=== PATIENT | male | born 1945 | race Caucasian/White ===

== ENCOUNTER → 2016-11-11 | Outpatient (REF) | payer MEDICARE ==
[~2016-11-11] MED LIST: /LINE60TA; /WARF5TA; AMLO10TAB; ASPI81TA83; CELEBRE200 PO; CLAR5CHW; DIOV160T5; EUCERIN; GEMF600T; GLUC1000; HYDR25TA6; INDO50CA2; NICO14DI3; RANI150C; SIMV40TA2
== END ==
LOC: M LAB REF 11:35
PROVIDERS: ATTEND Physician Assistant
DX: N39.0 Urinary tract infection, site not specified (principal)

== ENCOUNTER → 2018-03-08 | Outpatient (REF) | payer MEDICARE ==
[2018-03-08 21:56] LABS: APPEARANCE, URINE CLEAR (CLEAR); BACTERIA, URINE AUTO NEGATIVE (NEGATIVE); BILIRUBIN, URINE AUTO NEGATIVE (NEGATIVE); BLOOD, URINE BLOOD 1+ (NEGATIVE); COLOR, URINE YELLOW (YELLOW); GLUCOSE, URINE (UA) AUTO 1+ mg/dL (NEGATIVE); KETONE, URINE AUTO NEGATIVE (NEGATIVE); LEUKOCYTE ESTERASE, URINE AUTO 2+ (NEGATIVE); NITRITE, URINE AUTO NEGATIVE (NEGATIVE); PROTEIN, URINE AUTO 2+ mg/dL (NEGATIVE); RBC, URINE AUTO 35 /HPF (0-3); SPECIFIC GRAVITY URINE AUTO 1.013 (1.002-1.035); SQUAMOUS EPITHELIAL CELL UR AU 0 /HPF (0-6); UROBILINOGEN, URINE AUTO 0.2 mg/dL (0.0-2.0); WBC, URINE AUTO 63 /HPF (0-3)
== END ==
LOC: M LAB REF 09:17
PROVIDERS: ATTEND Physician Assistant
DX: N39.0 Urinary tract infection, site not specified (principal)

== ENCOUNTER → 2019-01-21 | Outpatient (CLI) | payer MEDICARE ==
[~2019-01-21] MED LIST changes: -/LINE60TA; -/WARF5TA; +COUM1TAB17; +ZYVO100T
--- NOTE | 2019-01-21 14:32 | REP ---
Two-view chest: 01/21/2019. Indication: Cough. Comparison: 07/04/2008. Findings: The lungs are clear. There is no pleural effusion or pneumothorax. Cardiomediastinal silhouette is unremarkable. Impression: Clear lungs. Electronically Signed by Faustino Good DO 01/21/2019 02:23 P
== END ==
LOC: M WUC 12:23
PROVIDERS: ATTEND Physician Assistant
DX: R05 Cough (principal); R06.02 Shortness of breath

== ENCOUNTER → 2019-04-11 | Outpatient (REF) | payer MEDICARE ==
[2019-04-11 17:56] LABS: ALBUMIN 3.9 GM/DL (3.2-5.2); ALT/SGPT 26 U/L (12-78); BILIRUBIN,TOTAL 0.5 MG/DL (0.2-1.0); BLOOD UREA NITROGEN 19 MG/DL (7-18); CALCIUM LEVEL 8.6 MG/DL (8.8-10.2); CARBON DIOXIDE LEVEL 29 MEQ/L (21-32); CHLORIDE LEVEL 104 MEQ/L (98-107); CREATININE FOR GFR 1.11 MG/DL (0.70-1.30); GLOMERULAR FILTRATION RATE > 60.0 (>42); GLUCOSE, FASTING 252 MG/DL (70-100); MAGNESIUM LEVEL 2.1 MG/DL (1.8-2.4); NT-PRO BNP 350 PG/ML (<125); POTASSIUM SERUM 4.7 MEQ/L (3.5-5.1); SODIUM LEVEL 139 MEQ/L (136-145)
[2019-04-11 18:13] LABS: BASO # 0.1 10^3/uL (0.0-0.2); BASO % 0.9 % (0.0-1.0); EOS % 0.5 % (0.0-3.0); HEMATOCRIT 38.2 % (42.0-52.0); HEMOGLOBIN 11.1 g/dl (13.5-17.5); LYMPH # 1.2 10^3/uL (1.5-5.0); LYMPH % 13.8 % (24.0-44.0); MEAN CORPUSCULAR HEMOGLOBIN 23.7 pg (27.0-33.0); MEAN CORPUSCULAR HGB CONC 29.1 g/dl (32.0-36.5); MEAN CORPUSCULAR VOLUME 81.4 fl (80.0-96.0); MONO # 0.6 10^3/uL (0.0-0.8); MONO % 6.6 % (0.0-5.0); NEUTROPHILS # 6.3 10^3/uL (1.5-8.5); NEUTROPHILS % 74.2 % (36.0-66.0); PLATELET COUNT, AUTOMATED 166 10^3/uL (150-450); RED BLOOD COUNT 4.69 10^6/uL (4.30-6.10); WHITE BLOOD COUNT 8.5 10^3/uL (4.0-10.0)
[2019-04-11 20:28] LABS: ERYTHROCYTE SEDIMENTATION RATE 18 mm/hr (0-20)
== END ==
LOC: M LABDRAW1 16:42
PROVIDERS: ATTEND Internal Medicine Cardiovascular Disease
DX: I50.32 Chronic diastolic (congestive) heart failure (principal); I08.0 Rheumatic disorders of both mitral and aortic valves; I11.0 Hypertensive heart disease with heart failure; I25.10 Atherosclerotic heart disease of native coronary artery without angina pectoris

== ENCOUNTER → 2019-04-12 | Outpatient (REF) | payer MEDICARE | LOC: M LABDRAW1 10:53 | PROVIDERS: ATTEND Internal Medicine Cardiovascular Disease | DX: I35.1 Nonrheumatic aortic (valve) insufficiency (principal) ==

== ENCOUNTER 2019-05-13 15:00 | Outpatient (RCR) | payer OTHER ==
--- NOTE | 2019-04-24 11:13 | CARECAPL ---
Assessment Account #s: Initial Assessment General Diagnoses: AVR (ENDOCARDITIS) Date of event: Apr 24, 2019 Physician: Garland Pena Allergies: Coded Allergies: MS - Lisinopril (Unverified Allergy, Mild, SWELLING, 06/20/12) MS - Penicillins (Verified Allergy, Unknown, 06/20/12) MS - Penicillins Cross Reactors (Verified Allergy, Unknown, 06/20/12) Date Entered Program: Apr 24, 2019 Risk strat for cardiac event: High Exercise Date: Apr 24, 2019 Assessment: Re-Assessment I Stages of change: Contemplate Exercise Prescription Plan TO EDUCATE AND BUILD ENDURANCE THROUGH MONITORED EXERCISE PROGRAM Modalities initiated: Treadmill (WILL ADD), Cardio-Strider (WILL ADD), Nustep (WILL ADD), Arm Aerometer (WILL ADD), Dumbells (WILL ADD), Recumbent Bike (WILL ADD) Frequency: 3 Duration (Minutes) 30 - 60 minutes total exercise a day. 15 - 20 work intervals in minutes. PRN rest intervals in minutes. Functional Capacity Goal Sustained Metabolic Equivalent of a task (MET) goal of 2.5-3.5 for 15-20 minutes. Intensity: 3-Moderate Progression (METS) Increase by: 0.5 METS every: 5 sessions TOLERATED Angina with ex: No Target Heart Rate 88-117 PER AGE PREDICTED Resistance Training: Yes Weight (pounds): 2 Reps: 8-12 Hypertension: Yes Hypertension controlled with: Medication Resting 169/66 Medications Scheduled Acetaminophen (Mapap), 2 TAB PO Q4H, (Reported) Allopurinol (Zyloprim), 300 MG PO DAILY, (Reported) Amiodarone HCl (Amiodarone HCl), 200 MG PO DAILY, (Reported) Amlodipine Besylate (Amlodipine Besylate), 10 MG PO DAILY, (Reported) Aspirin (Aspirin Low Dose), 81 MG PO DAILY, (Reported) Atorvastatin Calcium (Atorvastatin Calcium), 80 MG PO DAILY, (Reported) Budesonide/Formoterol (Symbicort 160-4.5 Mcg Inhaler), 2 PUFF INH BID, (Reported) Fluticasone Propionate (Flonase Allergy Relief), 2 SPRAY NARES DAILY, (Reported) Furosemide (Lasix), 20 MG PO DAILY, (Reported) Gabapentin (Neurontin), 300 MG PO BID, (Reported) Glipizide (Glipizide), 10 MG PO BID, (Reported) Metformin HCl (Metformin HCl), 1,000 MG PO BID, (Reported) Prednisone (Prednisone), 5 MG PO DAILY, (Reported) Sildenafil Citrate (Sildenafil Citrate), 100 MG PO ASDIRECTED, (Reported) Valsartan (Valsartan), 40 MG PO DAILY, (Reported) [detemir], 60 UNITS SQ QHS, (Reported) Scheduled PRN Albuterol Sulfate (Proair Hfa), 2 PUFF INH Q4HP PRN for DYSPNEA, (Reported) Carboxymethylcellulose Sodium (Refresh Tears), 1 DROP OP QIDP PRN for DRY EYES, (Reported) [nicotine gum], 4 MG OR Q2HP PRN for SMOKING CESSATION, (Reported) Discontinued Medications Gemfibrozil (Gemfibrozil), (Reported) Discontinued Reason: Pt states not taking Hydrochlorothiazide (Hydrochlorothiazide), (Reported) Discontinued Reason: Pt states not taking Indomethacin (Indomethacin), (Reported) Discontinued Reason: Pt states not taking Linezolid (Zyvox), (Reported) Discontinued Reason: Pt states not taking Loratadine (Children's Claritin), (Reported) Discontinued Reason: Pt states not taking Metformin HCl (Glucophage), (Reported) Discontinued Reason: Pt states not taking Nicotine (Nicoderm Cq), (Reported) Discontinued Reason: Pt states not taking Ranitidine Hcl (Ranitidine Hcl), (Reported) Discontinued Reason: Pt states not taking Simvastatin (Simvastatin), (Reported) Discontinued Reason: Pt states not taking Valsartan (Diovan), (Reported) Discontinued Reason: Pt states not taking Warfarin Sodium (Coumadin), (Reported) Discontinued Reason: Pt states not taking [Eucerin], (Reported) Discontinued Reason: Pt states not taking Med Change: No Intervention Resistance Training: Yes Education: Self pulse (PATIENT DEMONSTRATED SELF PULSE CHECK) Education Goals Met: No Target Goals Individual exercise Rx (1) BP 140/90 or 130/80 if DM or CKD (1) Aerobic active 30+min 5 days per week (1) Nutrition Date: Apr 24, 2019 Assessment: Initial Assessment Stages of change: Contemplate Lipid- med/supplement ATORVASTATIN Med Change: No Diabetes Diabetes: Yes Fasting Blood Sugar: 142 HbA1c (%): 6.5 Diabetes medication GLIPIZIDE,METFORMIN Monitor Blood Sugar at home: Yes Medication Change: No Weight Management Weight (lbs): 159 Height (inches): 68 Waist Circumference (Inches): 50 BMI: 41.8 Weight goal: 200 Special Diet: regular Diet Access Tool: Rate your plate Score: 40 Current Weight (pounds): 259 Weight Goal 200 Intervention Rib Sawyer Consult: No Nurse/patient discussion: Yes Dietary Goals SMALLER PORTIONS,HEART HEALTHY CHOICES Diet Class: Yes (WILL SEE RED CAP WHILE IN PROGRAM) Referral to Diabetes education: No Referral to lipid clinic: No Referral to weight mangement p: No Education Eating Healthy Target goal LDL-C<100 if triglycerides are >200 Non-HDL-C should be <130 (1) LDL-C<70 for high risk patients (4) HbA1c<7% (1) BMI<25 Waist cir<40in M/<35in F (1) Education Date: Apr 24, 2019 Assessment: Initial Assessment Learning Barriers: ready Stages of change: Contemplate Family Support: Yes Tobacco use: No Quit: >6 months Tobacco Use Smokeless tobacco: Yes (RECENTLY STOPPED SKOAL) Intervention Referral to smoking cessation: No Individual education and couns: No Tobacco Adjunct: No Education class schedule given: No Attended education classes: No Education Goals Met: No Target Goals Complete cessation of tobacco use (1). Psychosocial Date: Apr 24, 2019 Assessment: Initial Assessment Psych Test (Initial/Discharge) Tool Used: Other (PHQ-9) Stages of change: Contemplate Intervention Physician Consult: No Physician Referral: No Med Change: No Stress Management Class: No Uses Stress Management Skills: Yes Education Goals Met: No Target Goal Assess presence or absence of depression using a valid screening tool (1). Maximize coping skills (2). Positive support system (2). Patient/Program Goal Preventative Medication: Yes Aspirin, Yes MIRIAM Inhibitor, Yes Statin/OTR lipid Lowering Fall Risk Assess: Yes (NOT A FALL RISK) Provider Assessment Session Number: 1 Provider Assessment: Proceed with rehab Jordan Leyva RN Apr 24, 2019 11:13
[2019-05-02 12:50] VITALS: BP 160/82
[2019-05-02 14:33] VITALS: BP 160/68
[2019-05-02 14:38] VITALS: BP 169/66
[2019-05-03 16:00] VITALS: BP 162/84
[2019-05-03 16:02] VITALS: BP 160/84
[2019-05-03 16:03] VITALS: BP 152/70
[2019-05-06 13:26] VITALS: BP 130/76
[2019-05-06 14:08] VITALS: BP 148/76
[2019-05-06 14:46] VITALS: BP 134/64
[2019-05-09 14:08] VITALS: BP 142/64
[2019-05-09 14:50] VITALS: BP 142/82
[2019-05-09 15:33] VITALS: BP 118/64
[~2019-05-13] VITALS: Ht 172.7 cm; Wt 120.2 kg
[2019-05-13 13:35] VITALS: BP 132/72
[2019-05-13 14:00] VITALS: BP 140/80
[2019-05-13 14:59] VITALS: BP 108/60
[~2019-05-13 15:00] MED LIST changes: +AMIO200T PO; -AMLO10TAB; +AMLO10TAB PO; -ASPI81TA83; +ASPI81TA83 PO; +ATOR80TA59 PO; +DETEMIR SQ; +FLON1SPR NARES; +GLIP10TA PO; +LASI20TA3 PO; +MAPA325T4 PO; +METF10004 PO; +NEUR300C PO; +PRED5TA PO; +PROAAER10 INH; +REFR0.5D8 OP; +SILD100T PO; +SYMB16INH INH; +VALS40TA9 PO; +ZYLO300T6 PO; +nicotine gum OR
== END 2019-05-18 ==
LOC: M CR 15:00
PROVIDERS: ATTEND Internal Medicine Cardiovascular Disease
DX: Z95.3 Presence of xenogenic heart valve (principal)

== ENCOUNTER 2019-05-20 10:54 | Outpatient (RCR) | payer MEDICARE ==
[~2019-05-20] VITALS: Ht 172.7 cm; Wt 123.1 kg
[2019-05-20 12:54] VITALS: BP 140/74
[2019-05-20 12:56] VITALS: BP_SYST 128; BP_SYST 180; BP_DIAS 72; BP_DIAS 82
[2019-05-22 14:07] VITALS: BP 114/80
[2019-05-22 14:40] VITALS: BP 164/84
[2019-05-22 15:36] VITALS: BP 118/68
--- NOTE | 2019-05-23 11:15 | CARECAPL ---
Assessment Account #s: Re-Assessment I General Diagnoses: AVR (ENDOCARDITIS) Date of event: Feb 08, 2019 Physician: Garland Pena Allergies: Coded Allergies: MS - Lisinopril (Unverified Allergy, Mild, SWELLING, 06/20/12) MS - Penicillins (Verified Allergy, Unknown, 06/20/12) MS - Penicillins Cross Reactors (Verified Allergy, Unknown, 06/20/12) Date Entered Program: Apr 24, 2019 Risk strat for cardiac event: High Exercise Assessment: Re-Assessment I Stages of change: Contemplate Exercise Prescription Plan TO EDUCATE AND BUILD ENDURANCE THROUGH MONITORED EXERCISE PROGRAM Modalities initiated: Treadmill (METS=1.99/RPE=4), Nustep (METS=3.7/RPE=3), Arm Aerometer (METS=2.4/RPE=3), Dumbells (4#/RPE=3), Recumbent Bike (METS=3.2/RPE=3) Frequency: 3 Duration (Minutes) 30 - 60 minutes total exercise a day. 15 - 20 work intervals in minutes. PRN rest intervals in minutes. Functional Capacity Goal Sustained Metabolic Equivalent of a task (MET) goal of 3.0-4.0 for 15-20 minutes. Intensity: 3-Moderate Progression (METS) Increase by: 0.5 METS every: 5 sessions TOLERATED Angina with ex: No Target Heart Rate 88-117 PER AGE PREDICTED Resistance Training: Yes Weight (pounds): 4 Reps: 12-15 Hypertension: Yes Hypertension controlled with: Medication Resting 114/80 Peak Exercise BP 164/84 Medications Scheduled Acetaminophen (Mapap), 2 TAB PO Q4H, (Reported) Allopurinol (Zyloprim), 300 MG PO DAILY, (Reported) Amiodarone HCl (Amiodarone HCl), 200 MG PO DAILY, (Reported) Amlodipine Besylate (Amlodipine Besylate), 10 MG PO DAILY, (Reported) Aspirin (Aspirin Low Dose), 81 MG PO DAILY, (Reported) Atorvastatin Calcium (Atorvastatin Calcium), 80 MG PO DAILY, (Reported) Budesonide/Formoterol (Symbicort 160-4.5 Mcg Inhaler), 2 PUFF INH BID, (Reported) Fluticasone Propionate (Flonase Allergy Relief), 2 SPRAY NARES DAILY, (Reported) Furosemide (Lasix), 20 MG PO DAILY, (Reported) Gabapentin (Neurontin), 300 MG PO BID, (Reported) Glipizide (Glipizide), 10 MG PO BID, (Reported) Metformin HCl (Metformin HCl), 1,000 MG PO BID, (Reported) Prednisone (Prednisone), 5 MG PO DAILY, (Reported) Sildenafil Citrate (Sildenafil Citrate), 100 MG PO ASDIRECTED, (Reported) Valsartan (Valsartan), 40 MG PO DAILY, (Reported) [detemir], 60 UNITS SQ QHS, (Reported) Scheduled PRN Albuterol Sulfate (Proair Hfa), 2 PUFF INH Q4HP PRN for DYSPNEA, (Reported) Carboxymethylcellulose Sodium (Refresh Tears), 1 DROP OP QIDP PRN for DRY EYES, (Reported) [nicotine gum], 4 MG OR Q2HP PRN for SMOKING CESSATION, (Reported) Current BP 118/68 Med Change: No Intervention Home exercise: Type (WALKING,WEIGHTS,JOIN LOCAL GYM OR MEET PROGRAM), Frequency (3-5 DAYS PER WEEK), Duration (30-60 MINUTES) Resistance Training: Yes Education: Self pulse (INSTRUCTED PATIENT HOW TO TAKE OWN PULSE), Ex safety (PATIENT VERBALIZES UNDERSTANDING OF IMPORTANCE OF WARM UP AND COOL DOWN, STAYING HYDRATED DURING EXERCISE), S/S to report (PATIENT VERBALIZES UNDERSTANDING TO REPORT CHEST PAIN OR PRESSURE, SOB, N/V OR ANY OTHER PAIN), Low NA diet (PATIENT UNDERSTANDS THAT HE IS TO AVOID SODIUM IN HIS DIET), BP medication (DISCUSSED ACTION OF AMLODIPINE), RPE Scale (INSTRUCTED ON USE OF RPE SCALE OF DIFFICULTY FOR EACH PIECE OF EQUIPMENT), Equipment orientation (ORIENTED TO EACH PIECE OF EQUIPMENT USED), warm up/cool down (PATIENT DEMONSTRATES INDEPENDENTLY TO WARM UP/COOL DOWN PRIOR TO AND FOLLOWING EX ERCISE), Understand BP (DISCUSSED IDEAL B/P PARAMETERS FOR PATIENT), Physical Active (PATIENT VERBALIZES UNDERSTANDING OF IMPORTANCE OF CONTINUED EXERCISE FOLLOWING PROGRAM) Education Goals Met: Yes (PROGRESSING TOWARD GOALS) Target Goals Individual exercise Rx (1) BP 140/90 or 130/80 if DM or CKD (1) Aerobic active 30+min 5 days per week (1) Nutrition Date: May 23, 2019 Assessment: Re-Assessment I Stages of change: Contemplate Lipid- med/supplement ATORVASTATIN Med Change: No Diabetes Diabetes: Yes Diabetes medication GLIPIZIDE AND METFORMIN Monitor Blood Sugar at home: Yes Blood sugar in range: Yes Weight Management Weight (lbs): 265 Special Diet: regular Current Weight (pounds): 265 Intervention Gem Expert Consult: No Nurse/patient discussion: Yes Dietary Goals TO MAKE HEART HEALTHY CHOICES, SMALLER PORTIONS Diet Class: Yes (MET WITH NIB INSPECTOR 05/10/2019) Referral to Diabetes education: No Referral to lipid clinic: No Referral to weight mangement p: No Education Eating Healthy Education Goals Met: Yes (PROGRESSING TOWARD GOALS) Target goal LDL-C<100 if triglycerides are >200 Non-HDL-C should be <130 (1) LDL-C<70 for high risk patients (4) HbA1c<7% (1) BMI<25 Waist cir<40in M/<35in F (1) Education Date: May 23, 2019 Assessment: Re-Assessment I Learning Barriers: ready Stages of change: Contemplate Family Support: Yes Tobacco use: No Quit: >6 months Tobacco Use Smokeless tobacco: No (RECENTLY STOPPED SKOAL) Intervention Referral to smoking cessation: No Individual education and couns: No Tobacco Adjunct: No Education class schedule given: No Attended education classes: No Education: CAD (PATIENT STATES HIGH CHOLESTEROL CAUSES CLOGGED ARTERIES RESULTING IN CAD), Risk factors (PATIENT AWARE THAT BEING OVERWEIGHT, DIABETES A RE RISKS FACTORS FOR CAD), med compliance (PATIENT STATES UNDERSTANDING OF IMPORTANCE OF MEDICATION COMPLIANCE), cardiac A&P (HANDOUTS REVIEWED FOR ANATOMY AND PHYSIOLOGY OF THE HEART), Angina S/S (PATIENT IS AWARE OF S/S OF ANGINA SUCH SOB, CHEST PAIN OR PRESSURE, N/V), Sexuality (PATIENT IS AWARE THAT HE NEEDS MD PERMISSION PRIOR TO RESUMING SEXUAL RELATIONS) Education Goals Met: Yes (PROGRESSING TOWARD GOALS) Target Goals Complete cessation of tobacco use (1). Psychosocial Date: May 23, 2019 Assessment: Re-Assessment I Stages of change: Contemplate Intervention Physician Consult: No Physician Referral: No Med Change: No Stress Management Class: No Uses Stress Management Skills: Yes Education Education: Coping Techniques (DISCUSSED COPING MEASURES SUCH TAKING TIME FOR SELF, EXERCISE,TALKING WITH FAMILY/FRIENDS), S/S depression (REVIEWED S/S OF DEPRESSION SUCH WITHDRAWAL, LACK OF INTEREST, LACK OF APPETITE, SECLUSION), Relaxation Techniques (DISCUSSED WAYS TO RELAX SUCH READING, EXERCISING, LISTENING TO MUSIC) Education Goals Met: Yes (PROGRESSING TOWARD GOALS) Target Goal Assess presence or absence of depression using a valid screening tool (1). Maximize coping skills (2). Positive support system (2). Patient/Program Goal Preventative Medication: Yes Aspirin, Yes MIRIAM Inhibitor, Yes Statin/OTR lipid Lowering Fall Risk Assess: Yes (NOT A FALL RISK) Provider Assessment Session Number: 7 Provider Assessment: Proceed with rehab Jordan Leyva RN May 23, 2019 11:15
[2019-05-27 10:09] VITALS: BP 138/80
[2019-05-27 11:25] VITALS: BP 170/90
[2019-05-30 13:17] VITALS: BP 158/86
[2019-05-30 13:55] VITALS: BP 148/86
[2019-05-30 14:42] VITALS: BP 142/76
[2019-06-05 13:28] VITALS: BP 110/60
[2019-06-05 14:11] VITALS: BP 180/70
[2019-06-05 14:52] VITALS: BP 126/60
[2019-06-06 09:32] VITALS: BP 124/70
[2019-06-06 09:59] VITALS: BP 160/72
[2019-06-06 11:05] VITALS: BP 124/72
--- NOTE | 2019-06-07 13:05 | CARECAPL ---
General Allergies: Coded Allergies: MS - Lisinopril (Unverified Allergy, Mild, SWELLING, 06/20/12) MS - Penicillins (Verified Allergy, Unknown, 06/20/12) MS - Penicillins Cross Reactors (Verified Allergy, Unknown, 06/20/12) Exercise Prescription Duration (Minutes) 30 - 60 minutes total exercise a day. 15 - 20 work intervals in minutes. PRN rest intervals in minutes. Functional Capacity Goal Sustained Metabolic Equivalent of a task (MET) goal of for minutes. Progression (METS) Increase by: METS every: sessions Medications Scheduled Acetaminophen (Mapap), 2 TAB PO Q4H, (Reported) Allopurinol (Zyloprim), 300 MG PO DAILY, (Reported) Amiodarone HCl (Amiodarone HCl), 200 MG PO DAILY, (Reported) Amlodipine Besylate (Amlodipine Besylate), 10 MG PO DAILY, (Reported) Aspirin (Aspirin Low Dose), 81 MG PO DAILY, (Reported) Atorvastatin Calcium (Atorvastatin Calcium), 80 MG PO DAILY, (Reported) Budesonide/Formoterol (Symbicort 160-4.5 Mcg Inhaler), 2 PUFF INH BID, (Reported) Fluticasone Propionate (Flonase Allergy Relief), 2 SPRAY NARES DAILY, (Reported) Furosemide (Lasix), 20 MG PO DAILY, (Reported) Gabapentin (Neurontin), 300 MG PO BID, (Reported) Glipizide (Glipizide), 10 MG PO BID, (Reported) Metformin HCl (Metformin HCl), 1,000 MG PO BID, (Reported) Prednisone (Prednisone), 5 MG PO DAILY, (Reported) Sildenafil Citrate (Sildenafil Citrate), 100 MG PO ASDIRECTED, (Reported) Valsartan (Valsartan), 40 MG PO DAILY, (Reported) [detemir], 60 UNITS SQ QHS, (Reported) Scheduled PRN Albuterol Sulfate (Proair Hfa), 2 PUFF INH Q4HP PRN for DYSPNEA, (Reported) Carboxymethylcellulose Sodium (Refresh Tears), 1 DROP OP QIDP PRN for DRY EYES, (Reported) [nicotine gum], 4 MG OR Q2HP PRN for SMOKING CESSATION, (Reported) Target Goals Individual exercise Rx (1) BP 140/90 or 130/80 if DM or CKD (1) Aerobic active 30+min 5 days per week (1) Target goal LDL-C<100 if triglycerides are >200 Non-HDL-C should be <130 (1) LDL-C<70 for high risk patients (4) HbA1c<7% (1) BMI<25 Waist cir<40in M/<35in F (1) Target Goals Complete cessation of tobacco use (1). Target Goal Assess presence or absence of depression using a valid screening tool (1). Maximize coping skills (2). Positive support system (2). Provider Assessment Provider Assessment: No changes (Cardiac Rehab Program closed due to COVID-19, patient's account to be put on hold) Jordan Leyva RN Jun 07, 2019 13:05
== END 2019-06-18 ==
LOC: M CR 10:54
PROVIDERS: ATTEND Internal Medicine Cardiovascular Disease
DX: Z95.3 Presence of xenogenic heart valve (principal)
CPT/HCPCS: 93798; G0424

== ENCOUNTER → 2019-05-25 | Outpatient (REF) | payer MEDICARE | LOC: M LAB REF 16:29 | PROVIDERS: ATTEND Physician Assistant | DX: R30.0 Dysuria (principal) ==

== ENCOUNTER → 2019-07-29 | Outpatient (CLI) | payer MEDICARE ==
[~2019-07-29] MED LIST changes: +ACET325T43 PO; -MAPA325T4 PO
[2019-07-29 11:55] LABS: BASO # 0.1 10^3/uL (0.0-0.2); BASO % 0.9 % (0.0-1.0); EOS # 0.1 10^3/uL (0.0-0.5); EOS % 0.7 % (0.0-3.0); HEMATOCRIT 39.7 % (42.0-52.0); HEMOGLOBIN 11.5 g/dl (13.5-17.5); LYMPH # 1.1 10^3/uL (1.5-5.0); LYMPH % 9.7 % (24.0-44.0); MEAN CORPUSCULAR HEMOGLOBIN 23.8 pg (27.0-33.0); MONO # 0.7 10^3/uL (0.0-0.8); MONO % 6.2 % (0.0-5.0); NEUTROPHILS # 8.8 10^3/uL (1.5-8.5); NEUTROPHILS % 79.4 % (36.0-66.0); PLATELET COUNT, AUTOMATED 163 10^3/uL (150-450); RED BLOOD COUNT 4.84 10^6/uL (4.30-6.10); WHITE BLOOD COUNT 11.1 10^3/uL (4.0-10.0)
[2019-07-29 12:32] LABS: ALBUMIN 3.8 GM/DL (3.2-5.2); BILIRUBIN,TOTAL 0.4 MG/DL (0.2-1.0); CALCIUM LEVEL 8.8 MG/DL (8.8-10.2); CREATININE FOR GFR 1.37 MG/DL (0.70-1.30); GLOMERULAR FILTRATION RATE 54.1 (>42); POTASSIUM SERUM 4.7 MEQ/L (3.5-5.1)
== END ==
LOC: M LAB 11:04
PROVIDERS: ATTEND Internal Medicine Cardiovascular Disease
DX: I35.1 Nonrheumatic aortic (valve) insufficiency (principal)

== ENCOUNTER → 2019-08-16 | Outpatient (CLI) | payer MEDICARE | LOC: M LAB 09:51 | PROVIDERS: ATTEND Ophthalmology | DX: H47.019 Ischemic optic neuropathy, unspecified eye (principal) ==

== ENCOUNTER → 2019-09-04 | Outpatient (CLI) | payer MEDICARE, OTHER ==
[~2019-09-04] MED LIST changes: -AMIO200T PO; +AMIO200T3 PO
[2019-09-04 15:11] LABS: CREATININE FOR GFR 1.45 MG/DL (0.70-1.30); GLOMERULAR FILTRATION RATE 50.6 (>42)
== END ==
LOC: M LAB 13:43
PROVIDERS: ATTEND Ophthalmology
DX: H46.8 Other optic neuritis (principal)

== ENCOUNTER → 2019-09-06 | Outpatient (CLI) | payer MEDICARE, OTHER ==
[~2019-09-06] MED LIST changes: +PROHANCE 279.3MG/ML 15ML VIAL As Ordered ONE
--- NOTE | 2019-09-06 10:33 | REP ---
MRI orbits: 09/06/2019. Indication: Ischemic optic neuropathy. Technique: Multiplanar short and long TR sequences of the orbits were performed including post gadolinium imaging. Comparison: None. Findings: The ocular and intraorbital anatomy is normal. There are no areas of pathologic gadolinium enhancement. No pathologic fluid collections are present. There is a brain MRI ordered and the brain anatomy will be described separately. Impression: No ocular or intraorbital anatomic abnormalities. Electronically Signed by Faustino Good DO 09/06/2019 10:24 A
--- NOTE | 2019-09-07 10:40 | REP ---
MRI brain: 09/06/2019. Indication: Ischemic optic neuropathy. Technique: Multiplanar short and long tier sequences of the brain were obtained including post gadolinium imaging. Comparison: None. Findings: There are no areas of restricted diffusion or pathologic gadolinium enhancement. Diffuse volume loss is present. There are multiple areas of elevated cerebral hemisphere, T2 white matter signal most consistent with chronic small vessel disease. There is no hydrocephalus or mass effect. The large intracranial flow voids are present. Impression: No acute intracranial process. Volume loss and sequelae of chronic microangiopathic ischemic disease. Electronically Signed by Faustino Good DO 09/07/2019 10:31 A
== END ==
LOC: M RAD 08:02
PROVIDERS: ATTEND Ophthalmology
DX: H47.011 Ischemic optic neuropathy, right eye (principal)
CPT/HCPCS: 70543; 70553; A9576

== ENCOUNTER → 2019-10-23 | Outpatient (CLI) | payer OTHER, MEDICARE ==
[~2019-10-23] MED LIST changes: -PROHANCE 279.3MG/ML 15ML VIAL As Ordered ONE
[2019-11-23 08:14] LABS: BASO # 0.1 10^3/uL (0.0-0.2); BASO % 0.9 % (0.0-1.0); EOS # 0.1 10^3/uL (0.0-0.5); HEMATOCRIT 49.2 % (42.0-52.0); LYMPH # 0.8 10^3/uL (1.5-5.0); LYMPH % 10.4 % (24.0-44.0); MEAN CORPUSCULAR HEMOGLOBIN 23.3 pg (27.0-33.0); MEAN CORPUSCULAR HGB CONC 28.5 g/dl (32.0-36.5); MEAN CORPUSCULAR VOLUME 81.9 fl (80.0-96.0); MONO # 0.5 10^3/uL (0.0-0.8); MONO % 5.8 % (0.0-5.0); NEUTROPHILS # 6.3 10^3/uL (1.5-8.5); PLATELET COUNT, AUTOMATED 126 10^3/uL (150-450); RED BLOOD COUNT 6.01 10^6/uL (4.30-6.10)
[2019-12-02 06:19] LABS: ANTINUCLEAR ANTIBODIES DIRECT See Separate Report
== END ==
LOC: M LAB 12:46
PROVIDERS: ATTEND Optometrist
DX: H47.019 Ischemic optic neuropathy, unspecified eye (principal)

== ENCOUNTER → 2019-11-06 | Outpatient (CLI) | payer OTHER, MEDICARE ==
[2019-11-06 11:19] LABS: BASO # 0.1 10^3/uL (0.0-0.2); BASO % 0.8 % (0.0-1.0); EOS # 0.1 10^3/uL (0.0-0.5); EOS % 0.8 % (0.0-3.0); HEMATOCRIT 34.9 % (42.0-52.0); HEMOGLOBIN 10.1 g/dl (13.5-17.5); LYMPH % 9.5 % (24.0-44.0); MEAN CORPUSCULAR HEMOGLOBIN 23.5 pg (27.0-33.0); MEAN CORPUSCULAR HGB CONC 28.9 g/dl (32.0-36.5); MEAN CORPUSCULAR VOLUME 81.4 fl (80.0-96.0); MONO # 0.7 10^3/uL (0.0-0.8); MONO % 6.6 % (0.0-5.0); NEUTROPHILS # 8.5 10^3/uL (1.5-8.5); NEUTROPHILS % 79.8 % (36.0-66.0); PLATELET COUNT, AUTOMATED 167 10^3/uL (150-450); RED BLOOD COUNT 4.29 10^6/uL (4.30-6.10); WHITE BLOOD COUNT 10.7 10^3/uL (4.0-10.0)
[2019-11-06 12:20] LABS: ALBUMIN 3.9 GM/DL (3.2-5.2); ALT/SGPT 30 U/L (12-78); BILIRUBIN,TOTAL 0.4 MG/DL (0.2-1.0); BLOOD UREA NITROGEN 23 MG/DL (7-18); CALCIUM LEVEL 8.7 MG/DL (8.8-10.2); CARBON DIOXIDE LEVEL 30 MEQ/L (21-32); CHLORIDE LEVEL 106 MEQ/L (98-107); CREATININE FOR GFR 1.21 MG/DL (0.70-1.30); GLOMERULAR FILTRATION RATE > 60.0 (>42); GLUCOSE, FASTING 232 MG/DL (70-100); MAGNESIUM LEVEL 2.1 MG/DL (1.8-2.4); NT-PRO BNP 272 PG/ML (<450); POTASSIUM SERUM 4.9 MEQ/L (3.5-5.1); SODIUM LEVEL 140 MEQ/L (136-145); TOTAL PROTEIN 7.1 GM/DL (6.4-8.2)
== END ==
LOC: M LAB 10:39
PROVIDERS: ATTEND Internal Medicine Rheumatology
DX: I50.32 Chronic diastolic (congestive) heart failure (principal)

== ENCOUNTER → 2020-02-10 | Outpatient (CLI) | payer OTHER, MEDICARE ==
[2020-02-10 13:10] LABS: BASO # 0.1 10^3/uL (0.0-0.2); BASO % 0.8 % (0.0-1.0); EOS # 0.1 10^3/uL (0.0-0.5); EOS % 0.9 % (0.0-3.0); HEMATOCRIT 32.6 % (42.0-52.0); LYMPH # 0.9 10^3/uL (1.5-5.0); LYMPH % 9.6 % (24.0-44.0); MEAN CORPUSCULAR HEMOGLOBIN 22.4 pg (27.0-33.0); MEAN CORPUSCULAR HGB CONC 27.6 g/dl (32.0-36.5); MEAN CORPUSCULAR VOLUME 81.3 fl (80.0-96.0); MONO # 0.6 10^3/uL (0.0-0.8); MONO % 6.1 % (0.0-5.0); NEUTROPHILS # 7.3 10^3/uL (1.5-8.5); NEUTROPHILS % 81.3 % (36.0-66.0); PLATELET COUNT, AUTOMATED 166 10^3/uL (150-450); RED BLOOD COUNT 4.01 10^6/uL (4.30-6.10)
[2020-02-10 15:55] LABS: ALBUMIN 3.8 GM/DL (3.2-5.2); CALCIUM LEVEL 8.9 MG/DL (8.8-10.2); CREATININE FOR GFR 1.3 MG/DL (0.70-1.30); GLOMERULAR FILTRATION RATE 57.3 (>42)
== END ==
LOC: M LAB 12:35
PROVIDERS: ATTEND Internal Medicine Cardiovascular Disease
DX: I50.32 Chronic diastolic (congestive) heart failure (principal); I35.1 Nonrheumatic aortic (valve) insufficiency; I11.0 Hypertensive heart disease with heart failure

== ENCOUNTER → 2020-11-11 | Outpatient (CLI) | payer OTHER ==
[2020-11-11 10:37] LABS: BASO # 0.1 10^3/uL (0.0-0.2); BASO % 0.7 % (0.0-1.0); EOS # 0.1 10^3/uL (0.0-0.5); EOS % 1.2 % (0.0-3.0); HEMATOCRIT 44.4 % (42.0-52.0); HEMOGLOBIN 14.4 g/dl (13.5-17.5); LYMPH # 1.4 10^3/uL (1.5-5.0); MEAN CORPUSCULAR HEMOGLOBIN 29.3 pg (27.0-33.0); MEAN CORPUSCULAR HGB CONC 32.4 g/dl (32.0-36.5); MEAN CORPUSCULAR VOLUME 90.2 fl (80.0-96.0); MONO # 0.7 10^3/uL (0.0-0.8); MONO % 8.1 % (2.0-8.0); NEUTROPHILS # 5.7 10^3/uL (1.5-8.5); NEUTROPHILS % 71.1 % (36.0-66.0); PLATELET COUNT, AUTOMATED 130 10^3/uL (150-450); RED BLOOD COUNT 4.92 10^6/uL (4.30-6.10); WHITE BLOOD COUNT 8.1 10^3/uL (4.0-10.0)
[2020-11-11 11:08] LABS: ALBUMIN 3.7 GM/DL (3.2-5.2); ALT/SGPT 37 U/L (12-78); BILIRUBIN,TOTAL 0.6 MG/DL (0.2-1.0); BLOOD UREA NITROGEN 23 MG/DL (7-18); CALCIUM LEVEL 8.4 MG/DL (8.8-10.2); CARBON DIOXIDE LEVEL 29 MEQ/L (21-32); CHLORIDE LEVEL 107 MEQ/L (98-107); GLOMERULAR FILTRATION RATE > 60.0 (>42); GLUCOSE, FASTING 126 MG/DL (70-100); NT-PRO BNP 145 PG/ML (<450); POTASSIUM SERUM 4.2 MEQ/L (3.5-5.1); SODIUM LEVEL 140 MEQ/L (136-145)
== END ==
LOC: M LAB 09:48
PROVIDERS: ATTEND Internal Medicine Cardiovascular Disease
DX: I50.32 Chronic diastolic (congestive) heart failure (principal); I35.1 Nonrheumatic aortic (valve) insufficiency; I25.10 Atherosclerotic heart disease of native coronary artery without angina pectoris; I11.0 Hypertensive heart disease with heart failure

== ENCOUNTER 2021-01-27 09:12 | Inpatient (IN) | payer OTHER, MEDICARE ==
[~2021-01-27] VITALS: Ht 172.7 cm; Wt 119.0 kg
[2021-01-27] VITALS (9 sets, daily range): BP systolic 154–162; BP diastolic 78–94
[~2021-01-27 09:12] MED LIST changes: -REFR0.5D8 OP; +REFR0.5D8 OU
--- OUTSIDE RECORDS SUMMARY | 2021-01-27 09:21 | CCD ---
Author Author [facility] Organization [facility] Address Unknown Phone Unavailable Care Team Providers Care Parking Technician Name Role Phone SYSTEM IN, NOT IN PROVIDER Unavailable Unavailable Jacky SOLORIO MD Unavailable Unavailable Jacky SOLORIO MD Unavailable Unavailable Jacky SOLORIO MD Unavailable Unavailable Jacky SOLORIO MD Unavailable Unavailable Jacky SOLORIO MD Unavailable Unavailable Jacky SOLORIO MD Unavailable Unavailable Jacky SOLORIO MD Unavailable Unavailable Jacky SOLORIO MD Unavailable Unavailable Jacky SOLORIO MD Unavailable Unavailable Jacky SOLORIO MD Unavailable Unavailable Jacky SOLORIO MD Unavailable Unavailable Jacky SOLORIO MD Unavailable Unavailable Jacky SOLORIO MD Unavailable Unavailable Jacky SOLORIO MD Unavailable Unavailable Jacky SOLORIO MD Unavailable Unavailable Jacky SOLORIO MD Unavailable Unavailable Jacky SOLORIO MD Unavailable Unavailable Jacky SOLORIO MD Unavailable Unavailable Jacky SOLORIO MD Unavailable Unavailable Jacky SOLORIO MD Unavailable Unavailable Jacky SOLORIO MD Unavailable Unavailable Jacky SOLORIO MD Unavailable Unavailable Jacky SOLORIO MD Unavailable Unavailable Jacky SOLORIO MD Unavailable Unavailable Jacky SOLORIO MD Unavailable Unavailable Jacky SOLORIO MD Unavailable Unavailable Jacky SOLORIO MD Unavailable Unavailable Jacky SOLORIO MD Unavailable Unavailable Jacky SOLORIO MD Unavailable Unavailable Jacky SOLORIO MD Unavailable Unavailable Jacky SOLORIO MD Unavailable Unavailable Jacky SOLORIO MD Unavailable Unavailable Jacky SOLORIO MD Unavailable Unavailable Jacky SOLORIO MD Unavailable Unavailable Jacky SOLORIO MD Unavailable Unavailable Jacky SOLORIO MD Unavailable Unavailable Jacky SOLORIO MD Unavailable Unavailable Jacky SOLORIO MD Unavailable Unavailable Jacky SOLORIO MD Unavailable Unavailable Jacky SOLORIO MD Unavailable Unavailable Jacky SOLORIO MD Unavailable Unavailable Jacky SOLORIO MD Unavailable Unavailable Jacky SOLORIO MD Unavailable Unavailable Jacky SOLORIO MD Unavailable Unavailable Jacky SOLORIO MD Unavailable Unavailable Jacky SOLORIO MD Unavailable Unavailable Jacky SOLORIO MD Unavailable Unavailable Jacky SOLORIO MD Unavailable Unavailable Jacky SOLORIO MD Unavailable Unavailable Jacky SOLORIO MD Unavailable Unavailable Jacky SOLORIO MD Unavailable Unavailable Jacky SOLORIO MD Unavailable Unavailable Jacky SOLORIO MD Unavailable Unavailable Jacky SOLORIO MD Unavailable Unavailable Alvarado Hooker MD Unavailable Unavailable Alvarado Hooker MD Unavailable Unavailable Alvarado Hooker MD Unavailable Unavailable Alvarado Hooker MD Unavailable Unavailable Alvarado Hooker MD Unavailable Unavailable Alvarado Hooker MD Unavailable Unavailable Alvarado Hooker MD Unavailable Unavailable Alvarado Hooker MD Unavailable Unavailable Alvarado Hooker MD Unavailable Unavailable Alvarado Hooker MD Unavailable Unavailable Alvarado Hooker MD Unavailable Unavailable Alvarado Hooker MD Unavailable Unavailable Alvarado Hooker MD Unavailable Unavailable Alvarado Hooker MD Unavailable Unavailable Alvarado Hooker MD Unavailable Unavailable Alvarado Hooker MD Unavailable Unavailable Alvarado Hooker MD Unavailable Unavailable Alvarado Hooker MD Unavailable Unavailable Alvarado Hooker MD Unavailable Unavailable Alvarado Hooker MD Unavailable Unavailable Alvarado Hooker MD Unavailable Unavailable Alvarado Hooker MD Unavailable Unavailable Alvarado Hooker MD Unavailable Unavailable Alvarado Hooker MD Unavailable Unavailable Alvarado Hooker MD Unavailable Unavailable Alvarado Hooker MD Unavailable Unavailable Alvarado Hooker MD Unavailable Unavailable Alvarado Hooker MD Unavailable Unavailable Alvarado Hooker MD Unavailable Unavailable Alvarado Hooker MD Unavailable Unavailable Alvarado Hooker MD Unavailable Unavailable Alvarado Hooker MD Unavailable Unavailable Alvarado Hooker MD Unavailable Unavailable Alvarado Hooker MD Unavailable Unavailable Alvarado Hooker MD Unavailable Unavailable Alvarado Hooker MD Unavailable Unavailable Alvarado Hooker MD Unavailable Unavailable Alvarado Hooker MD Unavailable Unavailable Alvarado Hooker MD Unavailable Unavailable Alvarado Hooker MD Unavailable Unavailable Alvarado Hooker MD Unavailable Unavailable Alvarado Hooker MD Unavailable Unavailable Alvarado Hooker MD Unavailable Unavailable Alvarado Hooker MD Unavailable Unavailable Alvarado Hooker MD Unavailable Unavailable Alvarado Hooker MD Unavailable Unavailable Alvarado Hooker MD Unavailable Unavailable Alvarado Hooker MD Unavailable Unavailable Alvarado Hooker MD Unavailable Unavailable Alvarado Hooker MD Unavailable Unavailable Alvarado Hooker MD Unavailable Unavailable Alvarado Hooker MD Unavailable Unavailable Alvarado Hooker MD Unavailable Unavailable Alvarado Hooker MD Unavailable Unavailable Alvarado Hooker MD Unavailable Unavailable Alvarado Hooker MD Unavailable Unavailable Alvarado Hooker MD Unavailable Unavailable Alvarado Hooker MD Unavailable Unavailable Alvarado Hooker MD Unavailable Unavailable Alvarado Hooker MD Unavailable Unavailable Alvarado Hooker MD Unavailable Unavailable Alvarado Hooker MD Unavailable Unavailable Alvarado Hooker MD Unavailable Unavailable Alvarado Hooker MD Unavailable Unavailable Alvarado Hooker MD Unavailable Unavailable Alvarado Hooker MD Unavailable Unavailable Alvarado Hooker MD Unavailable Unavailable Koleliza Erica MD Unavailable Unavailable Koloms Erica MD Unavailable Unavailable Koloms Erica MD Unavailable Unavailable Koloms Erica MD Unavailable Unavailable Koloms Erica MD Unavailable Unavailable Koloms, Erica MD Unavailable Unavailable Koloms, Erica MD Unavailable Unavailable Koloms, Erica MD Unavailable Unavailable Koloms, Erica MD Unavailable Unavailable Koloms, Erica MD Unavailable Unavailable Koloms, Erica MD Unavailable Unavailable Koloms, Erica MD Unavailable Unavailable Koloms Erica MD Unavailable Unavailable Koloms, Erica MD Unavailable Unavailable Koloms Erica MD Unavailable Unavailable Koloms Erica MD Unavailable Unavailable Koloms Erica MD Unavailable Unavailable Koloms Erica MD Unavailable Unavailable Koloms Erica MD Unavailable Unavailable Koloms Erica MD Unavailable Unavailable Koloms Erica MD Unavailable Unavailable Koloms, Erica MD Unavailable Unavailable Koloms, Erica MD Unavailable Unavailable Koloms, Erica MD Unavailable Unavailable Koloms, Erica MD Unavailable Unavailable Koloms, Erica MD Unavailable Unavailable Koloms, Erica MD Unavailable Unavailable Koloms, Erica MD Unavailable Unavailable Koloms, Erica MD Unavailable Unavailable Koloms, Erica MD Unavailable Unavailable Koloms, Erica MD Unavailable Unavailable Koloms, Erica MD Unavailable Unavailable Koloms, Erica MD Unavailable Unavailable PAULA A KYRA Unavailable Unavailable Flip Cardenas MD Unavailable Unavailable Flip Cardenas MD Unavailable Unavailable Flip Cardenas MD Unavailable Unavailable Flip Cardenas MD Unavailable Unavailable Flip Cardenas MD Unavailable Unavailable Flip Cardenas MD Unavailable Unavailable Flip Cardenas MD Unavailable Unavailable Flip Cardenas MD Unavailable Unavailable Flip Cardenas MD Unavailable Unavailable Flip Cardenas MD Unavailable Unavailable Flip Cardenas MD Unavailable Unavailable Flip Cardenas MD Unavailable Unavailable Flip Cardenas MD Unavailable Unavailable Flip Cardenas MD Unavailable Unavailable Flip Cardenas MD Unavailable Unavailable Flip Cardenas MD Unavailable Unavailable Flip Cardenas MD Unavailable Unavailable Flip Cardenas MD Unavailable Unavailable Flip Cardenas MD Unavailable Unavailable Flip Cardenas MD Unavailable Unavailable Flip Cardenas MD Unavailable Unavailable Flip Cardenas MD Unavailable Unavailable Flip Cardenas MD Unavailable Unavailable Flip Cardenas MD Unavailable Unavailable Flip Cardenas MD Unavailable Unavailable Flip Cardenas MD Unavailable Unavailable Flip Cardenas MD Unavailable Unavailable Flip Cardenas MD Unavailable Unavailable Flip Cardenas MD Unavailable Unavailable Flip Cardenas MD Unavailable Unavailable Flip Cardenas MD Unavailable Unavailable Flip Cardenas MD Unavailable Unavailable Flip Cardenas MD Unavailable Unavailable Flip Cardenas MD Unavailable Unavailable Flip Cardenas MD Unavailable Unavailable Flip Cardenas MD Unavailable Unavailable Flip Cardenas MD Unavailable Unavailable Flip Cardenas MD Unavailable Unavailable Flip Cardenas MD Unavailable Unavailable Flip Cardenas MD Unavailable Unavailable Flip Cardenas MD Unavailable Unavailable Flip Cardenas MD Unavailable Unavailable Flip Cardenas MD Unavailable Unavailable Flip Cardenas MD Unavailable Unavailable Flip Cardenas MD Unavailable Unavailable Flip Cardenas MD Unavailable Unavailable Flip Cardenas Samah Unavailable Unavailable Theresa O Kwanah Unavailable Unavailable Theresa O [place] Unavailable Unavailable Theresa O [place] Unavailable Unavailable Theresa O [place] Unavailable Unavailable Theresa O [place] Unavailable Unavailable Theresa O [place] Unavailable Unavailable Theresa O [place]ah Unavailable Unavailable Theresa O Samah Unavailable Unavailable Theresa O [place] Unavailable Unavailable Theresa O [place] Unavailable Unavailable Theresa O [place] Unavailable Unavailable Theresa O [place] Unavailable Unavailable Theresa O [place] Unavailable Unavailable Theresa O [place] Unavailable Unavailable Theresa O [place] Unavailable Unavailable Theresa O [place] Unavailable Unavailable Theresa O [place] Unavailable Unavailable Theresa O [place] Unavailable Unavailable Theresa O [place] Unavailable Unavailable Theresa O [place] Unavailable Unavailable Theresa O Shorty QUICK Unavailable Unavailable Theresa O [place] Unavailable Unavailable Theresa O [place] Unavailable Unavailable Theresa O [place] Unavailable Unavailable Theresa O [place] Unavailable Unavailable Theresa O [place] Unavailable Unavailable Theresa O Shorty QUICK Unavailable Unavailable Theresa O [place] Unavailable Unavailable Theresa O [place] Unavailable Unavailable Theresa O [place] Unavailable Unavailable Theresa O [place] Unavailable Unavailable Theresa O Shorty QUICK Unavailable Unavailable Moon COBIAN MD Unavailable Unavailable Moon COBIAN MD Unavailable Unavailable Moon COBIAN MD Unavailable Unavailable Moon COBIAN MD Unavailable Unavailable Moon COBIAN MD Unavailable Unavailable Moon COBIAN MD Unavailable Unavailable Moon COBIAN MD Unavailable Unavailable Moon COBIAN MD Unavailable Unavailable Moon COBIAN MD Unavailable Unavailable Moon COBIAN MD Unavailable Unavailable Moon COBIAN MD Unavailable Unavailable Moon COBIAN MD Unavailable Unavailable Moon COBIAN MD Unavailable Unavailable Moon COBIAN MD Unavailable Unavailable MEMoon KEARNS MD Unavailable Unavailable MEMoon KEARNS MD Unavailable Unavailable MEMoon KEARNS MD Unavailable Unavailable MEJIMoon CONLEY MD Unavailable Unavailable MEJIMoon CONLEY MD Unavailable Unavailable MEJIMoon CONLEY MD Unavailable Unavailable MEJICOMoon MD Unavailable Unavailable MEJIMoon CONLEY MD Unavailable Unavailable MEJIMoon CONLEY MD Unavailable Unavailable MEMoon KEARNS MD Unavailable Unavailable MEJIMoon CONLEY MD Unavailable Unavailable MEJIMoon CONLEY MD Unavailable Unavailable MEJIMoon CONLEY MD Unavailable Unavailable MEMoon KEARNS MD Unavailable Unavailable MEJIMoon CONLEY MD Unavailable Unavailable MEMoon KEARNS MD Unavailable Unavailable MEMoon KEARNS MD Unavailable Unavailable MEMoon KEARNS MD Unavailable Unavailable MEMoon KEARNS MD Unavailable Unavailable MEMoon KEARNS MD Unavailable Unavailable MEMoon KEARNS MD Unavailable Unavailable MEMoon KEARNS MD Unavailable Unavailable MEMoon KEARNS MD Unavailable Unavailable MEMoon KEARNS MD Unavailable Unavailable MEMoon KEARNS MD Unavailable Unavailable MEMoon KEARNS MD Unavailable Unavailable MEMoon KEARNS MD Unavailable Unavailable MEMoon KEARNS MD Unavailable Unavailable MEMoon KEARNS MD Unavailable Unavailable MEMoon KEARNS MD Unavailable Unavailable MEMoon KEARNS MD Unavailable Unavailable MEMoon KEARNS MD Unavailable Unavailable MEMoon KEARNS MD Unavailable Unavailable MEMoon KEARNS MD Unavailable Unavailable MEMoon KEARNS MD Unavailable Unavailable MEMoon KEARNS MD Unavailable Unavailable MEMoon KEARNS MD Unavailable Unavailable MEMoon KEARNS MD Unavailable Unavailable MEMoon KEARNS MD Unavailable Unavailable MEMoon KEARNS MD Unavailable Unavailable Moon COBIAN MD Unavailable Unavailable MEMoon KEARNS MD Unavailable Unavailable MEMoon KEARNS MD Unavailable Unavailable MEMoon KEARNS MD Unavailable Unavailable MEMoon KEARNS MD Unavailable Unavailable MEMoon KEARNS MD Unavailable Unavailable MEMoon KEARNS MD Unavailable Unavailable MEMoon KEARNS MD Unavailable Unavailable MEMoon KEARNS MD Unavailable Unavailable MEMoon KEARNS MD Unavailable Unavailable MEJICO, EVON MD Unavailable Unavailable MEMoon KEARNS MD Unavailable Unavailable Moon COBIAN MD Unavailable Unavailable MEMoon KEARNS MD Unavailable Unavailable MEMoon KEARNS MD Unavailable Unavailable Moon COBIAN MD Unavailable Unavailable Re-disclosure Warning The records that you are about to access may contain information from federally-assisted alcohol or drug abuse programs. If such information is present, then the following federally mandated warning applies: This information has been disclosed to you from records protected by federal confidentiality rules (42 CFR part 2). The federal rules prohibit you from making any further disclosure of this information unless further disclosure is expressly permitted by the written consent of the person to whom it pertains or as otherwise permitted by 42 CFR part 2. A general authorization for the release of medical or other information is NOT sufficient for this purpose. The Federal rules restrict any use of the information to criminally investigate or prosecute any alcohol or drug abuse patient.The records that you are about to access may contain highly sensitive health information, the redisclosure of which is protected by Article 27-F of the [facility] Public Health law. If you continue you may have access to information: Regarding HIV / AIDS; Provided by facilities licensed or operated by the [facility] Office of Mental Health; or Provided by the [facility] Office for People With Developmental Disabilities. If such information is present, then the following [facility] mandated warning applies: This information has been disclosed to you from confidential records which are protected by state law. State law prohibits you from making any further disclosure of this information without the specific written consent of the person to whom it pertains, or as otherwise permitted by law. Any unauthorized further disclosure in violation of state law may result in a fine or nursing home sentence or both. A general authorization for the release of medical or other information is NOT sufficient authorization for further disc losure. Family History Family Member Name Family Member Gender Family Member Status Date o f Status Description Data Source(s) Unknown Female Problem [facility] ([facility]) Encounters Encounter Providers Location Date Indications Data Source(s ) Outpatient Attender: JORDYN SOLORIO MD Main Office 11/25/2020 12:15:00 PM EDT [facility] ([facility]) Office Visit Attender: Shorty Cardenas MD Main office - [facility] 09/18/2020 11:30:00 AM EDT [facility] ([facility]) Outpatient Attender: JORDYN SOLORIO MD Main Office 08/12/2020 09:15:00 AM EDT [facility] ([facility]) Office Visit Attender: Shorty Cardenas MD [facility] office - [facility] 06/04/2020 12:30:00 PM EDT [facility] ([facility]) Outpatient Attender: JORDYN SOLORIO MD Main Office 05/15/2020 08:00:00 AM EST [facility] ([facility]) Outpatient Attender: KYRA MITCHELL 12:00:00 AM EST - 04/16/2020 11:28:07 AM EST Unspecified optic atrophy [facility] Unspecified optic atrophy Outpatient Attender: CHITO COBIAN MDReferrer: Erica Benson [id number] 04/16/2020 12:00:00 AM EST - 04/16/2020 10:54:42 AM EST Unspecified optic atrophy [facility] Unspecified optic atrophy Outpatient Attender: JORDYN SOLORIO MD Main Office 02/10/2020 10:15:00 AM EST [facility] ([facility]) Office Visit Attender: Shorty Cardenas MD [facility] 02/06/2020 01:45:00 PM EST [facility] ([facility]) Inpatient Attender: Isaiah Hooker MDAdmit ter: Isaiah Hooker MDReferrer: PROVIDER SYSTEM IN [address] [place] [address] 02/08/2019 12:00:00 AM EST - 02/21/2019 02:24:00 PM EST Other nonrheumatic aortic valve disorders [facility] Other nonrheumatic aortic valve disorder s Patient discharged. Immunizations Vaccine Date Status Description Data Source(s) COVID-19 VACCINE Moderna 04/30/2020 12:00:00 AM EST completed [facility] Vaccine Series Complete: YESThis Data wa s Submitted to [facility]. COVID-19 VACCINE Moderna 04/02/2020 12:00:00 AM EST completed [facility]IS Vaccine Series Complete: NOThis Data was Submitted to [facility]. Medications Medication Brand Name Start Date Product Form Dose Route Admi nistrative Instructions Pharmacy Instructions Status Indications Reaction Description Data Source(s) Prednisone 1 MG Oral Tablet Prednisone 11/24/2020 12:00:00 AM EDT ORAL active [facility]) Docusate Sodium 100 MG Oral Capsule Docusate Sodium 05/14/2020 1 2:00:00 AM EST ORAL active [facility] ( [facility]) ferrous sulfate 325 MG Delayed Release Oral Tablet Ferrous S ulfate 05/14/2020 12:00:00 AM EST ORAL active M EDENT ([facility]) Ascorbic Acid 500 MG Oral Tablet Ascorbic Acid 05/14/2020 12:00:00 AM EST ORAL active [facility] ([facility]) coenzyme Q10 100 MG Oral Capsule Coq-10 03/01/2020 12:00:00 AM EST ORAL active [facility]) docosahexaenoic acid 120 MG / Eicosapentaenoic Acid 18 0 MG Oral Capsule Fish Oil [place]-3 03/01/2020 12:00:00 AM EST ORAL active [facility] ([facility]) ezetimibe 10 MG Oral Tablet Ezetimibe 02/09/2020 12:00:00 AM EST ORAL active [facility] ([facility]) Tamsulosin hydrochloride 0.4 MG Oral Capsule Tamsulosin HCL 02/09/2020 12:00:00 AM EST ORAL active [facility] ([facility]) Amoxicillin 500 MG Oral Capsule Amoxicillin 02/02/2020 12:00:00 AM EST ORAL active [facility] ([facility]) coenzyme Q10 100 MG Oral Capsule Coq-10 11/05/2019 12:00:00 AM EDT ORAL completed [facility] ([facility]) Aspirin 81 MG Delayed Release Oral Table t Aspirin 81 MG Oral Tablet Delayed Release Aspirin 81 MG Oral Tablet Delayed Release 02/22/2019 12:00:00 AM EST 81 mg Oral active Take 1 tablet by mouth [facility] valsartan 40 MG Oral Tablet Valsartan 40 MG Oral Table t (DIOVAN) Valsartan 40 MG Oral Tablet (DIOVAN) 02/22/2019 12:00:00 AM EST 40 mg Oral active Take 1 tablet by mouth [facility] Amlodipine 10 MG Oral Tablet amLODIPine Besylate 10 MG Oral Tablet (NORVASC) amLODIPine Besylate 10 MG Oral Tablet (NORVASC) 02/22/2019 12:00:00 AM EST 10 mg Oral active Take 1 tablet by mouth [facility] Insurance Providers Payer name Policy type / Coverage type Policy ID Covered alliance party ID Covered alliance party's relationship to gee Policy Gee Plan Information UHC UNITED MEDICARE COMPLETE G [id number] Self [id number] OTHER B [id number] Self [id number] OTHER B [id number] Self [id number] OTHER B [id number] Self [id number] OTHER B [id number] Self [id number] UN MEDICARE COMPLETE - O/P [id number] 18 [id number] UN MEDICARE COMPLETE - O/P [id number] 18 [id number] [facility] [id number] SP [id number] [facility] D[facility] - FACILITY [id number] 18 [id number] ADMINSTRATION -O/P [id number] 18 [id number] [facility] [id number] SP [id number] 'S ADMINISTRATION [id number] SP [id number] MEDICARE COMPLETE[facility] O [id number] S [id number] [employer] O [id number] S [id number] [facility] O [id number] S [id number] MEDICARE C [id number] S [id number] [facility] O [id number] S [id number] MEDICARE [id number] SP [id number] MEDICARE [id number] SP [id number] [id number] Self [id number] ADMINSTRATION -O/P [id number] 18 [id number] 'S ADMINSTRATION-O/P UNAVAILABLE UNAVAILABLE [place] [facility]/Medicare Solu Commercial [id number] Self [facility] [id number] SP [id number] [facility] P [id number] S [id number] [employer] [place] CCN [id number] SP [id number] [facility] [id number] SP [id number] 'S ADMINISTRATION [id number] SP [id number] [employer] [place] O [id number] S [id number] [facility] [id number] SP [id number] Problems, Conditions, and Diagnoses Code Display Name Description Problem Type Effective Dates Data Source(s) H46.8 Other optic neuritis Other optic neuritis Diagnosis 04/16/2020 11:12:32 AM [facility] 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 Unspecified optic atrophy Di agnosis 04/16/2020 11:12:32 AM [facility] I27.81 Chronic cor pulmonale Chronic cor pulmonale Problem 08/12/2020 12:00:00 AM EDT [facility] ([facility]) 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 Problem 05/15/2020 12:00:00 AM EST [facility] ([facility]) R07.89 Chest pain Chest pain Problem 02/10/2020 12:00:00 AM ES T [facility] ([facility]) [id number] 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 Problem 02/10/2020 12:00:00 AM EST [facility] ([facility]) [id number] Angina co-occurrent and due to coronary arteriosclerosis Angina co-occurrent and due to coronary arteriosclerosis Problem 02/10/2020 12:00:00 AM EST [facility] ([facility]) Surgeries/Procedures Procedure Description Date Indications Data Source(s) OFFICE OUTPATIENT VISIT 25 MINUTES 11/25/2020 12:00:00 AM EDT [facility] ([facility]) PHYSICIAN TELEPHONE EVALUATION 11-20 MIN 09/18/2020 12 :00:00 AM EDT [facility] ([facility]) ECG ROUTINE ECG W/LEAST 12 LDS W/I&R 08/12/2020 12:00: 00 AM EDT [facility] ([facility]) OFFICE OUTPATIENT VISIT 25 MINUTES 08/12/2020 12:00:00 AM EDT [facility] ([facility]) NON-INVASIVE PHYSIOLOGIC STUDY EXTREMITY 3 LEVLS 06/19 12:00:00 AM EDT [facility] ([facility] ) NON-INVASIVE PHYSIOLOGIC STUDY EXTREMITY 3 LEVLS 06/19 12:00:00 AM EDT [facility] ([facility] ) TSTG ANS FUNCJ CARDIOVAGAL INNERVAJ PARASYMP 1 12:00:00 AM EDT [facility] ([facility] ) TESTING AUTONOMIC NERVOUS SYSTEM FUNCTION 06/19/2020 1 2:00:00 AM EDT [facility] ([facility] ) PHYSICIAN TELEPHONE EVALUATION 11-20 MIN 06/04/2020 12 :00:00 AM EDT [facility] ([facility], ) ECG ROUTINE ECG W/LEAST 12 LDS W/I&R 05/15/2020 12:00: 00 AM EST [facility] [facility] MYOCARDIAL SPECT MULTIPLE STUDIES 03/02/2020 12:00:00 AM EST [facility] ([facility]) CV STRS TST XERS&/OR RX CONT ECG PHYS SI&R 03/02/2020 12:00:00 AM EST [facility] ([facility]) ECG ROUTINE ECG W/LEAST 12 LDS W/I&R 02/10/2020 12:00: 00 AM EST [facility] ([facility]) Results ID Date Data Source [id number] 11/11/2020 10:01:00 AM EDT [facility] ([facility]) Name Value Range Interpretation Code Description Data Tana rce(s) Supporting Document(s) Natriuretic peptide.B prohormone N-Terminal [Mass/volu me] in Serum or Plasma 145 pg/mL [facility]) ID Date Data Source [id number] 11/11/2020 10:01:00 AM EDT [facility] Name Value Range Interpretation Code Description Data Tana rce(s) Supporting Document(s) Glucose, Fasting 126 mg/dL 70-100 [facility] Blood Urea Nitrogen 23 mg/dL 7-18 [facility] ([facility]) Glomerular Filtration Rate Laboratory test result [facility] ([facility]) <content>Units are mL/min/1.73 m2</content>
<content></content>
<content>Chronic Kidney Disease Staging per NKF:</content>
<content></content>
<content>Stage I & II GFR >=60 Normal to Mildly Decreased</content>
<content>Stage III GFR 30- 59 Moderately Decreased</content>
<content>Stage IV GFR 15-29 Severely Decreased</content>
<content>Stage V GFR <15 Very Little GFR Left</content>
<content>ESRD GFR <15 on SECURITY INVESTIGATOR</content>
<content></content> Creatinine For GFR 1.20 mg/dL 0.70-1.30 [facility] ([facility]) Sodium Level 140 meq/L 136-145 [facility] ([facility]) Potassium Serum 4.2 meq/L 3.5-5.1 [facility] ([facility]) Chloride Level 107 meq/L 98-107 [facility] ([facility]) Carbon Dioxide Level 29 meq/L 21-32 [facility] ([facility]) Calcium Level 8.4 mg/dL 8.8-10.2 [facility] ([facility]) Anion Gap 4 meq/L 8-16 [facility] ([facility]) Alt/SGPT 37 U/L 12-78 [facility]) Ast/Sgot 21 U/L 7-37 [facility] ([facility] Alkaline Phosphatase 85 U/L 45-117 [facility] ([facility]) Bilirubin,Total 0.6 mg/dL 0.2-1.0 [facility] ([facility]) Total Protein 7.0 GM/DL 6.4-8.2 [facility] ([facility]) Albumin/Globulin Ratio 1.1 [facility] ([facility]) Albumin 3.7 GM/DL 3.2-5.2 [facility] ([facility]) ID Date Data Source [id number] 07/13/2020 10:18:00 AM EDT [facility] Name Value Range Interpretation Code Description Data Tana rce(s) Supporting Document(s) White Blood Count 8.6 [facility] Red Blood Count 4.75 [facility] Platelets 154 [facility] Hematocrit 39.1 [facility] ([facility]) Hemoglobin 11.2 [facility] ([facility]) ID Date Data Source [id number] 07/13/2020 10:18:00 AM EDT [facility] Name Value Range Interpretation Code Description Data Tana rce(s) Supporting Document(s) Glucose 170 [facility] Blood Urea Nitrogen 17 [facility] Creatinine 0.8 [facility] ([facility]) Sodium 139 [facility] Potassium 4.2 [facility] Chloride 104 [facility] Carbon Dioxide 28 [facility] ([facility]) Calcium 8.7 [facility] Glomerular filtration rate/1.73 sq M.pre dicted [Volume Rate/Area] in Serum or Plasma by Creatinine-based formula (MDRD) Laboratory test result [facility] ([facility]) ID Date Data Source [id number] 07/13/2020 10:18:00 AM EDT [facility] Name Value Range Interpretation Code Description Data Tana rce(s) Supporting Document(s) Hemoglobin A1c/Hemoglobin.total in Blood 7.3 [facility] ([facility]) ID Date Data Source [id number] 04/16/2020 04:42:08 PM [facility] Name Value Range Interpretation Code Description Data Tana rce(s) Supporting Document(s) Progress Note [facility] GIMNAx2kAuYWIzYx27/QOBaeBBGpl5LnJCkkBDl2DEuwVFOjO7TiLTU6pA7zVMP7EYzWItEbHkIuKTM1 lbm [file] mold laminator/zVN5egkC4ic/awm7dPcY74bajU8Qe+2mAn6ta9GSvp8cq35cRxP2+FdQtz6TS1ZsefjZI4bB6d+3E [file] /O6XQ+uEp6c/XDD53T+TcgfX150xsPpmm3o4Q0mbOiB2h2HIMNZ+MM59KuFE/+rydp0k+mold laminator/3jWf80dg [file] AgICAgICAgICAgICAgICAgICAgICAgICAgICAgICAg ICAgICAgICAgICAgICAgICAgICAgICAgICAgICAgICAgICANCiAgICAgICAgICAgICAgICAgICAgICAg ICAgICAgICAgICAgICAgICAgICAgICAgICAgICAgICAgICAgICAgICAgICAgICAgICAgICAgICAgICAg ICAgICAgICAgICAgICAgICANCiAgICAgICAgICAgIC AgICAgICAgICAgICAgICAgICAgICAgICAgICAgICAgICAgICAgICAgICAgICAgICAgICAgICAgICAgIC AgICAgICAgICAgICAgICAgICAgICAgICAgICANCiAgICAgICAgICAgICAgICAgICAgICAgICAgICAgIC AgICAgICAgICAgICAgICAgICAgICAgICAgICAgICAg ICAgICAgICAgICAgICAgICAgICAgICAgICAgICAgICAgICAgICANCiAgICAgICAgICAgICAgICAgICAg ICAgICAgICAgICAgICAgICAgICAgICAgICAgICAgICAgICAgICAgICAgICAgICAgICAgICAgICAgICAg ICAgICAgICAgICAgICAgICAgICANCiAgICAgICAgIC AgICAgICAgICAgICAgICAgICAgICAgICAgICAgICAgICAgICAgICAgICAgICAgICAgICAgICAgICAgIC AgICAgICAgICAgICAgICAgICAgICAgICAgICAgICANCiAgICAgICAgICAgICAgICAgICAgICAgICAgIC AgICAgICAgICAgICAgICAgICAgICAgICAgICAgICAg ICAgICAgICAgICAgICAgICAgICAgICAgICAgICAgICAgICAgICAgICANCiAgICAgICAgICAgICAgICAg ICAgICAgICAgICAgICAgICAgICAgICAgICAgICAgICAgICAgICAgICAgICAgICAgICAgICAgICAgICAg ICAgICAgICAgICAgICAgICAgICAgICANCiAgICAgIC AgICAgICAgICAgICAgICAgICAgICAgICAgICAgICAgICAgICAgICAgICAgICAgICAgICAgICAgICAgIC AgICAgICAgICAgICAgICAgICAgICAgICAgICAgICAgICANCiAgICAgICAgICAgICAgICAgICAgICAgIC AgICAgICAgICAgICAgICAgICAgICAgICAgICAgICAg ICAgICAgICAgICAgICAgICAgICAgICAgICAgICAgICAgICAgICAgICAgICANCjw/ySZuL8qgoSXyfhV0 S7ucOq6VHc6YLQ3js1GoASOiJYqeynNdNjuUFiSnRXIlQxuYSmd3NDuwJM3IxNLeP0BpS9DzFIslHK8U EWPlHFMxlEKsDLXxACKrVcU5GXYrJRbmVK1RlHBoYJ itFWUuQDPzRpEwRBTfYUMyHPWtNYKzRGLLNYBwUPPsFxRzUJSiXLTtFMytBHWEYJX5MALnPcOwRXxpVY 9Ys3OqlSE8TZd+Vp7FWB0zn8HiXMxbLxVdQJ3zvz4WKYyNGmXvP1XepyY1VYO5VZKxFx1PFXPiKUJmyO NwNkYkKLKRVsOpI6WijC27WRFBYl2+DQplbmRvYmoN YdN5HLIyk1KbPMg0UW3EKTYqFSp9fGRcSWHxP2Vzu2MeXa42RXBwRdgoKZPbkkPDRZ1mqxccpcdpOWBl FHEiRE1bSH0lYXEhPJP1GdVbTMPBEZ7OTADcUEVwkTGuQVKeOZSGXM5PCTvfRCE1RSCfbaLmlJEyKIij BG8QEJTtnlBkKdCpSJVFQNw+Jn7GND2nb8ZtJZamTG LdGA2vng9FGOoACnCsJ2Q1hCVcF9U6IPxmXw6MKFExOEJwGoBcYKYEFPcdMU2PVN6krhC0VU0QnYPrCN FfWFUagYAuLRm3T46fhIYxHZjzOX3DGJA+Jorge+Sn6UNIZvPXNlYJErCuEbMOCJEuRtF1CvL0JUp8IoX5 BvKX88aEcmxwVsRDazQP7MLY3iMYBsQTTFKM4LjTUn dD8xcsUoXhHrPDQAEzCuW70ceEYoCHNbRXE2BQXfPu0BNVQrY8QqivTqbLcbohPrRABjOTVYYY7UWEnt qhUeqVYylKydVH50pZrcNF4KZi7OZiSqKP8pzd6HgZKxVi4BVNFoPC7VBQGoUTHhLPMvUCQ8VNSrKjTh FPzeUDCeMXFyMJB0HIIkQXWrCM2DNeYdTZWsMUY8PA RcFKQvFBEvyz8IKGFtKTG6EJEoSDWbEGVfMRDaIInoGLOkDWBpFVM6HJMqTEKfVZ4HOwNaKFWdPQM6Mq NkBMEvSQTabv9VNDXmHMRmFCe5CHCyLABcADAhZNohLDZqFTB0RQtoORJyPNZzKC5RDuJwMHTeCFroHG GjVBTgCRPyym8QMHExUPQwFZu8BVRaIBByLFPaIMqw DROmPAHaGTkoXYWnHGXtNJ7XNoWbGTFyELE5QPBkUSCaTXVyco9QENRnONEgTIe5QXGrDSIeRUNaYZzw SVQxNNS3FLR0TVAoMJLuYU8WPhHbMCSzKWylRpFjRWNpOOEmap0SBPYvXLGnNMH5HhKuAGJpMDCzWOsa BSUcGUMsMBC4URDwGTXwWZ2FUjEdJSTyPaQ7XBTxBJ KdFPNdit6BWJVyJESmTBapFPDnJJXkKZApUOdpONRpXSK5NlB5YJKiOKMuUC4TEyXbTRLuMeS0TJLbRD BoXMDpxp6LWSZjYOWbXkH3VlJvAUUxDFXvJRddHCDbCZF4XafyDMOnBWVpLU0FZvWcJQYqUyr4BOFqOA CqFWTlwp6ZKIWsNNIeRIcwAjXwNRRiZWPiIBsiXDMd NPK9NXY9FCBeKAJyXR6GYrHnJDEbYcpoVNRhLSGqPGNxge7WUFPiPNL5JQWkAxSrTFJjTATwKNhjPDIw FQRaMNG3ADDiXRZoMJ1UMhMzRPDfBPOcEkXxTVKuKGIqiq1FUDIjLEE4HJZeOvAlAODdBCOyXFgpVOOl RITfCFYmDHPvDVHkZN3CSxTgTOFzVNU8NQLaWPJoRI Cgxa2YPCZsBBK6HeL1LGWzICSvJFMjHXnrIHAcXQVeDZqgDGXgAZFgVZ3ESaTjLCLtHLVdJSfcITIlVE Dsrq9VOBMxJQS5URj8ZZPfOROsEZXvUMnlTJVjZVE2RZD5FMUrXGYhEI7ALjUjOVEmPRR2GUJhSMQcAX Gedp1BlLMedQxaxc2JGLxHRf1IqIzaEVD3BUwqKd4p lGTyLBReEBVEIh5PeaQiXXXbMTKBJGkyBNNuWASmZpJiNQLrBbI8RxF8IKA2VTC3XlTqTWn4XPC2LqOv JoD2ZiOqOGPfKVCvHUieWoIvIVI6HiBaAWClKuW3StOdEfO+OB5mKTt+Gl4En9MzewN4ioRqQKx8APNb Jo3QTUOOY3UVKl== ID Date Data Source [id number] 02/10/2020 12:56:00 PM EST MED[facility] ([facility]) Name Value Range Interpretation Code Description Data Tana rce(s) Supporting Document(s) Natriuretic peptide.B prohormone N-Terminal [Mass/volu me] in Serum or Plasma 230 pg/mL [facility] ([facility], ) ID Date Data Source [id number] 02/10/2020 12:56:00 PM EST MED[facility] ([facility]) Name Value Range Interpretation Code Description Data Tana rce(s) Supporting Document(s) Glucose, Fasting 227 mg/dL 70-100 [facility] ([facility]) Creatinine For GFR 1.30 mg/dL 0.70-1.30 [facility] ([facility]) Blood Urea Nitrogen 18 mg/dL 7-18 [facility] ([facility], ) Glomerular Filtration Rate 57.3 MED ENT ([facility]) <content>Units are mL/min/1.73 m2</content>
<content></content>
<content>Chronic Kidney Disease Staging per NKF:</content>
<content></content>
<content>Stage I & II GFR >=60 Normal to Mildly Decreased</content>
<content>Stage III GFR 30- 59 Moderately Decreased</content>
<content>Stage IV GFR 15-29 Severely Decreased</content>
<content>Stage V GFR <15 Very Little GFR Left</content>
<content>ESRD GFR <15 on SECURITY INVESTIGATOR</content>
<content></content> Sodium Level 138 meq/L 136-145 [facility] ([facility]) Chloride Level 104 meq/L 98-107 [facility] ([facility]) Carbon Dioxide Level 30 meq/L 21-32 [facility] ([facility]) Potassium Serum 5.0 meq/L 3.5-5.1 [facility] ([facility], ) Calcium Level 8.9 mg/dL 8.8-10.2 [facility] ([facility], ) Anion Gap 4 meq/L 8-16 [facility] ([facility], ) Phosphorus Level 3.0 mg/dL 2.5-4.9 [facility] ([facility]) Albumin 3.8 GM/DL 3.2-5.2 [facility] ([facility]) ID Date Data Source [id number] 02/10/2020 12:56:00 PM EST [facility] Name Value Range Interpretation Code Description Data Tana rce(s) Supporting Document(s) Natriuretic peptide.B prohormone N-Terminal [Mass/volu me] in Serum or Plasma 230 pg/mL [facility] ([facility]) ID Date Data Source [id number] 02/10/2020 12:56:00 PM EST [facility] ([facility] Name Value Range Interpretation Code Description Data Tana rce(s) Supporting Document(s) Glucose, Fasting 227 mg/dL 70-100 [facility] Blood Urea Nitrogen 18 mg/dL 7-18 [facility] ([facility]) Creatinine For GFR 1.30 mg/dL 0.70-1.30 [facility] ([facility]) Glomerular Filtration Rate 57.3 MED ENT ([facility]) <content>Units are mL/min/1.73 m2</content>
<content></content>
<content>Chronic Kidney Disease Staging per NKF:</content>
<content></content>
<content>Stage I & II GFR >=60 Normal to Mildly Decreased</content>
<content>Stage III GFR 30- 59 Moderately Decreased</content>
<content>Stage IV GFR 15-29 Severely Decreased</content>
<content>Stage V GFR <15 Very Little GFR Left</content>
<content>ESRD GFR <15 on SECURITY INVESTIGATOR</content>
<content></content> Sodium Level 138 meq/L 136-145 [facility] ([facility]) Potassium Serum 5.0 meq/L 3.5-5.1 [facility] ([facility]) Carbon Dioxide Level 30 meq/L 21-32 [facility] ([facility]) Chloride Level 104 meq/L 98-107 [facility] ([facility]) Anion Gap 4 meq/L 8-16 [facility] Calcium Level 8.9 mg/dL 8.8-10.2 [facility] ([facility]) Phosphorus Level 3.0 mg/dL 2.5-4.9 [facility] ([facility]) Albumin 3.8 GM/DL 3.2-5.2 [facility] Procedure Social History Code Duration Value Status Description Data Source(s ) Alcohol intake 04/16/2020 12:00:00 AM EST Current drinker of al cohol (finding) completed Current drinker of alcohol (finding) [facility] Tobacco use and exposure 04/16/2020 12:00:00 AM EST Current user co mpleted Current user [facility] Smoking 04/16/2020 12:00:00 AM EST Former smoker completed Former smoker [facility] Vital Signs ID Date Data Source UNK Name Value Range Interpretation Code Description Data Source(s) Body weight 258.00 [lb_av] 258.00 [lb_av] MEDEN T ([facility]) Body height 68 [in_i] 68 [in_i] [facility] ([facility]) 5'8" Body mass index (BMI) [Ratio] 39.2 kg/m2 39.2 k g/m2 [facility] ([facility]) Heart rate 64 /min 64 /min [facility] ([facility]) regular Respiratory rate 18 /min 18 /min [facility] ( [facility]) Systolic blood pressure--sitting 112 mm[Hg] 112 mm[Hg] [facility] ([facility]) large cuff, Ra Diastolic blood pressure--sitting 62 mm[Hg] 62 mm[Hg] [facility] ([facility]) large cuff, Ra Systolic blood pressure--supine 116 mm[Hg] 116 mm[Hg] [facility] ([facility]) Diastolic blood pressure--supine 62 mm[Hg] 62 mm[Hg] [facility] ([facility]) Respiratory rate 12 /min 12 /min MED[facility] ( [facility], ) Body height 68 [in_i] 68 [in_i] MED[facility] ([facility]) 5'8" Body weight 250.00 [lb_av] 250.00 [lb_av] MEDEN T ([facility]) Body mass index (BMI) [Ratio] 38.0 kg/m2 38.0 k g/m2 MED[facility] ([facility]) [place] body weight 154 [lb_av] 154 [lb_av] MEDEN T ([facility]) Body mass index (BMI) [Ratio] 39.4 kg/m2 39.4 k g/m2 [facility] ([facility]) Heart rate 68 /min 68 /min [facility] ([facility]) somewhat irregular Body weight 259.00 [lb_av] 259.00 [lb_av] MEDEN T ([facility]) Body height 68 [in_i] 68 [in_i] [facility] ([facility]) 5'8" Respiratory rate 18 /min 18 /min [facility] ( [facility]) Systolic blood pressure--sitting 124 mm[Hg] 124 mm[Hg] [facility] ([facility]) large cuff, Ra Diastolic blood pressure--sitting 56 mm[Hg] 56 mm[Hg] [facility] ([facility]) large cuff, Ra Systolic blood pressure--supine 132 mm[Hg] 132 mm[Hg] [facility] ([facility]) Diastolic blood pressure--supine 54 mm[Hg] 54 mm[Hg] [facility] ([facility]) Body weight 250.00 [lb_av] 250.00 [lb_av] MEDEN T ([facility]) Body mass index (BMI) [Ratio] 38.0 kg/m2 38.0 k g/m2 [facility] ([facility]) [place] body weight 154 [lb_av] 154 [lb_av] MEDEN T ([facility]) Body height 68 [in_i] 68 [in_i] MED[facility] ([facility] 5'8" Respiratory rate 12 /min 12 /min MED[facility] ( [facility]) Body height 68 [in_i] 68 [in_i] [facility] 5'8" Body mass index (BMI) [Ratio] 39.8 kg/m2 39.8 k g/m2 [facility] ([facility]) Heart rate 74 /min 74 /min [facility] ([facility]) regular Respiratory rate 18 /min 18 /min [facility] ( [facility]) Systolic blood pressure--sitting 119 mm[Hg] 119 mm[Hg] [facility] ([facility]) large cuff, Ra Body weight 262.00 [lb_av] 262.00 [lb_av] MEDEN T ([facility]) Diastolic blood pressure--sitting 58 mm[Hg] 58 mm[Hg] [facility] ([facility]) large cuff, Ra Systolic blood pressure--supine 128 mm[Hg] 128 mm[Hg] [facility] ([facility]) Diastolic blood pressure--supine 60 mm[Hg] 60 mm[Hg] [facility] ([facility]) Heart rate 72 /min 72 /min [facility] ([facility]) regular Respiratory rate 16 /min 16 /min [facility] ( [facility]) Body weight 268.00 [lb_av] 268.00 [lb_av] MEDEN T ([facility]) Body height 68 [in_i] 68 [in_i] [facility] 5'8" Body mass index (BMI) [Ratio] 40.7 kg/m2 40.7 k g/m2 [facility] ([facility]) Systolic blood pressure--sitting 112 mm[Hg] 112 mm[Hg] [facility] ([facility]) large cuff, Ra Diastolic blood pressure--sitting 62 mm[Hg] 62 mm[Hg] [facility] ([facility]) large cuff, Ra Systolic blood pressure--supine 118 mm[Hg] 118 mm[Hg] [facility] ([facility]) Diastolic blood pressure--supine 68 mm[Hg] 68 mm[Hg] [facility] ([facility]) Body weight 268.00 [lb_av] 268.00 [lb_av] MEDEN T ([facility]) Body height 68 [in_i] 68 [in_i] [facility]) 5'8" Body mass index (BMI) [Ratio] 40.7 kg/m2 40.7 k g/m2 [facility] ([facility]) Respiratory rate 12 /min 12 /min MED[facility] ( [facility] ) Body height 68 [in_i] 68 [in_i] MED[facility] ([facility], ) 5'8" Body weight 250.00 [lb_av] 250.00 [lb_av] MEDEN T ([facility], ) Body mass index (BMI) [Ratio] 38.0 kg/m2 38.0 k g/m2 MED[facility] ([facility], ) [place] body weight 154 [lb_av] 154 [lb_av] MEDEN T ([facility], ) ID Date Data Source [id number] 04/24/2020 01:32:19 PM [facility] Name Value Range Interpretation Code Description Data Source(s) WEIGHT RECORDED 273 lb 273 lb [facility] Body height Measured 69 in 69 in [facility] ID Date Data Source [id number] 08/26/2020 10:29:15 AM [facility] Name Value Range Interpretation Code Description Data Source(s) WEIGHT RECORDED 236 lb 236 lb [facility] Body height Measured 69 in 69 in [facility] TRANSFER FROM [facility] WEIGHT RECORDED 236 lb 236 lb [facility] Body height Measured 69 in 69 in [facility] Patient Treatment Plan of Care Planned Activity Planned Date Details Description Data Source (s) Amlodipine 10 MG Oral Tablet 02/22/2019 12:00:00 AM [facility] Aspirin 81 MG Delayed Release Oral Tablet 02/22/2019 12:00:00 AM [facility] valsartan 40 MG Oral Tablet 02/22/2019 12:00:00 AM [facility]
--- OUTSIDE RECORDS SUMMARY | 2021-01-27 09:21 | CCD | Continuity of Care Document ---
Author Author Ricardo PENA MD Organization Unknown Address [facility] [address] Phone [phone] Care Team Providers Care Range Ecologist Name Role Phone Xu Martinez MD AUTM [phone] Isaiah Hooker MD AUTM [phone] Penelope Simmons MD AUTM [phone] Shorty Cardenas MD AUTM [phone] Juanpablo Garcia MD AUTM [phone] Problems Active Problems Provider Date Electrocardiogram abnormal Garland Pena MD Onset: 2019 Aortic valve disorder Garland Pena MD Onset: 04/11/2019 Heart valve replacement Garland Pena MD Onset: 0 Mitral valve disorder Garland Pena MD Onset: 04/11/2019 History of coronary artery bypass grafting Heather Lewis Onset: 04/11/2019 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 Garland Pena MD Onset: 04/11/2019 Benign hypertensive heart disease without congestive h eart failure Garland Pena MD Onset: 04/11/2019 Chronic diastolic heart failure Garland Pena MD Onset: 0 04/11/2019 Atrial flutter Garland Pena MD Onset: 04/11/2019 First degree atrioventricular block Garland Pena MD Onse t: 04/11/2019 Paroxysmal tachycardia Garland Pena MD Onset: 04/11/2019 Chronic cor pulmonale Garland Pena MD Onset: 08/12/2020 Benign hypertensive heart disease with congestive card iac failure Garland Pena MD Onset: 05/15/2020 Chest pain Garland Pena MD Onset: 02/10/2020 Social History Type Date Description Comments Sex Unknown ETOH Use Rarely consumes alcohol Tobacco Use Start: Unknown End: Unknown Patient is a former smoker smoked cigars for 40 years, minimal cigaret smoker, stopped about 10 years ago Smoking Status Reviewed: 04/11/19 Patient is a former smoker sm oked cigars for 40 years, minimal cigaret smoker, stopped about 10 years ago Exercise Type/Frequency Walks sporadically at [email or web address] stores or around the house Exercise Type/Frequency Does gardening sporadica lly Exercise Limitations Weakness in legs Exercise Limitations Fatigue Allergies, Adverse Reactions, Alerts Active Allergies Criticality Reaction | Severity Comments Date Statins Unable to assess criticality myalgia 04/11/2019 Clindamycin Unable to assess criticality unknown 04/11/2019 Lisinopril Unable to assess criticality swelling 04/11/2019 Haroon-Polycin HC Unable to assess criticality unknown 04/11/2019 Medications Active Medications SIG Qnty Indications Ordering Provide r Date Docusate Sodium 100mg Capsules 1 by mouth twice a day Unknown 05/14/2020 Ferrous Sulfate 324(65Fe) mg Table ts DR 1 by mouth once every day Unknown 05/14/19 21 Ascorbic Acid 500mg Tablets 1 by mouth every day Unknown 05/14/2020 Coq-10 100mg Capsules 1 by mouth every day Unknown 03/01/2020 Fish Oil [place]-3 1000mg Capsules 1 by mouth daily Unknown 03/01/2020 Tamsulosin HCL 0.4mg Capsules 1 by mouth every day Unknown 02/09/2020 Ezetimibe 10mg Tablets 1 by mouth every day Unknown 02/09/2020 Amoxicillin 500mg Capsules 4 capsules by mouth 1 hour prior to dental procedures (sbe) Un known 02/02/2020 Prednisone 5mg Tablets 1.5 by mouth every day Unknown 11/05/2019 Proair HFA 108(90Base) mcg/Act Aer osol 2 puffs by mouth as needed Unknown 020 Torsemide 20mg Tablets 1 by mouth every day 90tabs Garland Pena MD 07/31/2019 Nicorette 2mg Gum chew one piece q1-2h as needed for strong cigarette cravings. maximum 30 pieces per day. Unknown 07/31/2019 Refresh Plus 0.5% Solution 1 drop 4 times daily both eyes Unknown 04/10/2019 Loratadine 10mg Capsules 1 by mouth every day Unknown 04/10/2019 Vitamin B Complex Tablets 1 by mouth every day Unknown 04/10/2019 Lhhfzrb-Kkbvlxvts-Qope 333-133-8.3mg Tablets 1 po daily Unknown 04/10/2019 Valsartan 40mg Tablets 1 by mouth every day Unknown 04/10/2019 Sildenafil Citrate 100mg Tablets 1/2 by mouth once daily as needed Unknown 04/10 Aspir-Low 81mg Tablets DR 1 by mouth every day Unknown 04/10/2019 Fluticasone Propionate 50mcg/Act Suspension 1 spray each nostril daily as needed Unkn own 04/10/2019 Acetaminophen 325mg Tablets 1-2 every 4 hours as needed Unknown 04/09/2019 Allopurinol 300mg Tablets 1 by mouth every day Unknown 04/09/2019 Glipizide 10mg Tablets 1 by mouth twice a day Unknown 04/09/2019 Levemir 100Unit/ML Solution inject sq as directed Unknown 04/09/2019 Metformin HCL 1000mg Tablets 1 by mouth twice a day Unknown 04/09/[address] 1 by mouth every day Unknown 04/09/2019 Immunizations Description No Information Available Vital Signs Date Vital Result Comment 08/12/2020 9:30am Weight 259.00 lb Home Weight 261lb home weight Height 68 inches 5'8" BMI (Body Mass Index) 39.4 kg/m2 Heart Rate 68 /min somewhat irregular Respiratory Rate 18 /min BP Systolic Sitting 124 mmHg large cuff, Ra BP Diastolic Sitting 56 mmHg large cuff, Ra BP Systolic Lying Down 132 mmHg BP Diastolic Lying Down 54 mmHg 05/15/2020 9:01am Weight 262.00 lb Home Weight 263lb home weight Height 68 inches 5'8" BMI (Body Mass Index) 39.8 kg/m2 Heart Rate 74 /min regular Respiratory Rate 18 /min BP Systolic Sitting 119 mmHg large cuff, Ra BP Diastolic Sitting 58 mmHg large cuff, Ra BP Systolic Lying Down 128 mmHg BP Diastolic Lying Down 60 mmHg Results Test Acquired Date Facility Test Result H/L Range Note Comprehensive Metabolic Profil 11/11/2020 [facility] [phone] Glucose, Fasting 126 mg/dL High 70-100 Blood Urea Nitrogen 23 mg/dL High 7-18 Creatinine For GFR 1.20 mg/dL Normal 0.70-1.30 Glomerular Filtration Rate > 60.0 Normal >42 1 Sodium Level 140 mEq/L Normal 136-145 Potassium Serum 4.2 mEq/L Normal 3.5-5.1 Chloride Level 107 mEq/L Normal 98-107 Carbon Dioxide Level 29 mEq/L Normal 21-32 Anion Gap 4 mEq/L Low 8-16 Calcium Level 8.4 mg/dL Low 8.8-10.2 Ast/Sgot 21 U/L Normal 7-37 Alt/SGPT 37 U/L Normal 12-78 Alkaline Phosphatase 85 U/L Normal 45-117 Bilirubin,Total 0.6 mg/dL Normal 0.2-1.0 Total Protein 7.0 GM/DL Normal 6.4-8.2 Albumin 3.7 GM/DL Normal 3.2-5.2 Albumin/Globulin Ratio 1.1 Normal Laboratory test finding 11/11/2020 [facility] [phone] NT-Pro BNP 145 pg/mL Normal <450 Hemoglobin A1c 07/13/2020 [facility] Hemoglobin A1c 7.3 Basic Metabolic Panel 07/13/2020 [facility] Glucose 170 Blood Urea Nitrogen 17 Creatinine 0.8 Sodium 139 Potassium 4.2 Chloride 104 Carbon Dioxide 28 Calcium 8.7 GFR (Calculated) -- CBC without Differential 07/13/2020 [facility] White Blood Count 8.6 Red Blood Count 4.75 Platelets 154 Hemoglobin 11.2 Hematocrit 39.1 1 Units are mL/min/1.73 m2 Chronic Kidney Disease Staging per NKF: Stage I & II GFR >=60 Normal to Mildly Decreased Stage III GFR 30-59 Moderately Decreased Stage IV GFR 15-29 Severely Decreased Stage V GFR <15 Very Little GFR Left 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 Procedures Date Code Description Status 08/12/2020 50047 Office/Outpatient Established Mo d MDM 30-39 Min Completed 08/12/2020 77804 ECG 12-Lead Completed Medical Devices Description No Information Available Encounters Type Date Location Provider Dx Diagnosis Office Visit 08/12/2020 9:15a Main Office Garland Pena MD I50.32 Chronic diastolic (congestive) heart failure I44.0 Atrioventricular block, firs t degree I25.10 Athscl heart disease of vasiliy ve coronary artery w/o ang pctrs I11.0 Hypertensive heart disease w ith heart failure I35.1 Nonrheumatic aortic (valve) insufficiency I27.81 Cor pulmonale (chronic) Assessments Date Code Description Provider 08/12/2020 I50.32 Chronic diastolic (congestive) h eart failure Garland Pnea MD 08/12/2020 I44.0 Atrioventricular block, first de gree Garland Pena MD 08/12/2020 I25.10 Atherosclerotic hear t disease of craig coronary artery without angina pectoris Garland Pena MD 08/12/2020 I11.0 Hypertensive heart disease with heart failure Garland Pena MD 08/12/2020 I35.1 Nonrheumatic aortic (valve) insu fficiency Garland Pena MD 08/12/2020 I27.81 Cor pulmonale (chronic) Garland Pena MD Plan of Treatment Future Appointment(s):* 11/25/2020 12:15 pm - Garland Pena MD at Main Office 08/12/2020 - Garland Pena MD* I50.32 Chronic diastolic (congestive) heart failure* New Labs:* CBC W/Auto Differential, Scheduled: 11/16/20 * CMP, Scheduled: 11/16/20 * NT Probnp QN Ser/Plas, Scheduled: 11/16/20 * Recommendations:* Dyspnea remains is effort limiting symptom and he has slight lower leg swelling but his expiratory rhonchi are believed to be a reflection of COPD; not heart failure. Believed to be compensated at this time. Congratulated on his weight loss. Recent blood work shows electrolyte balance with normal renal function. Encouraged his continued modest salt, fluid, and caloric restriction along with regular low level aerobic exercise. No change has been made to torsemide and valsartan. Should be weighing himself each morning post voiding and contact us should he gain more than 2 pounds in 24 hours or 4 pounds in 1 week. * I44.0 Atrioventricular block, first degree* Recommendations:* This combined with his sinus arrhythmia are believed to be related to degenerative conduction tissue disease. His positional loss of balance and recent fall are related to his vestibular problem and reduced visual acuity. Fortunately, sonu ins free of symptom to suggest bradyarrhythmia. EKG RI interval today is essentially stable. We will continue to monitor this conduction disturbance. No indication for need for pacemaker at this time. 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 Stable EKG appearance as mentioned above. Encouraged dietary measures and activity. No change has been made to his current protective valsartan, Ezetimibe and low-dose aspirin. Requested he contact us promptly for any effort related chest, jaw, or arm discomforts. * I11.0 Hypertensive heart disease with heart failure* New Labs:* CMP, Scheduled: 11/16/20 * Recommendations:* As per assessment #1. Current blood pressure would be considered well controlled. Chemistry as mentioned Dietary measures and exercise as mentioned above. No change has been made to his valsartan and torsemide. * I35.1 Nonrheumatic aortic (valve) insufficiency* New Labs:* CBC W/Auto Differential, Scheduled: 11/16/20 * Recommendations:* Post aortic valve replacement (bioprosthetic): Has no auscultatory change on examination today. Ongoing systolic murmur attributed to his prosthesis but no apparent insufficiency murmur. No symptoms or signs to suggest endocarditis. SBE antibiotic prophylaxis prior to dental or surgical procedures, is necessary to protect his prosthetic valve. In light of his prosthetic valve and prior endocarditis, he should also receive SBE prophylaxis prior to his endoscopies. * I27.81 Cor pulmonale (chronic)* Recommendations:* Somewhat challenging to assess his neck veins. Has only subtle lower leg swelling. Has been compliant with his CPAP therapy. Have encouraged his dietary measures and continued compliance with pressure therapy. * All * Comments:* I will ensure that the aforementioned test findings are reported to you along with any further recommendations. Thank you for allowing me to participate in the care of your patient. Best regards. * Follow up:* Clinic visit/CHF check with EKG and blood work in 3 months. We would be pleased to reassess the patient at any time. Functional Status Functional Condition Comment Date Status Independent with all ADL's Activ e Mental Status Description No Information Available Referrals Description No Information Available
[2021-01-27] MEDS ORDERED: TORS20TA2 PO (09:47)
[2021-01-27] MEDS ORDERED: MM S100C PO (09:47)
[2021-01-27] MEDS ORDERED: PRED1TABL PO (09:47)
[2021-01-27] MEDS ORDERED: LEVE1INJ5 SC (09:47)
[2021-01-27] MEDS ORDERED: FLOM0.4C39 PO (09:47)
[2021-01-27] MEDS ORDERED: OMEP-341 PO (09:47)
[2021-01-27] MEDS ORDERED: ASCO500T PO (09:47)
[2021-01-27] MEDS ORDERED: FERR325T3 PO (09:47)
[2021-01-27] MEDS ORDERED: EZET10TA21 PO (09:47)
--- NOTE | 2021-01-27 10:08 | REP ---
INDICATION: CVA. COMPARISON: Multiple the latest 01/21/2019 TECHNIQUE: Portable FINDINGS: The technique utilized in obtaining the radiograph has magnified the cardiac silhouette and accentuated the interstitial markings. The superior mediastinal structures are midline. The cardiac silhouette is unremarkable in size, shape, and position. The diaphragmatic surfaces of the lungs are regular, and the costophrenic angles are clear. The pulmonary hernandez are clear. There is been previous median sternotomy since the last exam IMPRESSION: There is no acute cardiopulmonary disease. <Electronically signed by Fab Mackey > 01/27/21 1640
[2021-01-27 10:20] LABS: BASO # 0.1 10^3/uL (0.0-0.2); BASO % 0.8 % (0.0-1.0); EOS # 0.1 10^3/uL (0.0-0.5); EOS % 1.5 % (0.0-3.0); HEMATOCRIT 45.9 % (42.0-52.0); HEMOGLOBIN 15.4 g/dl (13.5-17.5); LYMPH # 1.2 10^3/uL (1.5-5.0); LYMPH % 15.7 % (24.0-44.0); MEAN CORPUSCULAR HEMOGLOBIN 31.8 pg (27.0-33.0); MEAN CORPUSCULAR HGB CONC 33.6 g/dl (32.0-36.5); MEAN CORPUSCULAR VOLUME 94.6 fl (80.0-96.0); MONO # 0.6 10^3/uL (0.0-0.8); MONO % 8.2 % (2.0-8.0); NEUTROPHILS # 5.7 10^3/uL (1.5-8.5); NEUTROPHILS % 72.9 % (36.0-66.0); PLATELET COUNT, AUTOMATED 124 10^3/uL (150-450); RED BLOOD COUNT 4.85 10^6/uL (4.30-6.10); WHITE BLOOD COUNT 7.8 10^3/uL (4.0-10.0)
[2021-01-27 10:36] LABS: CK-MB VALUE MASS 2.7 NG/ML (<3.6); CPK CREATINE PHOSPHOKINASE 236 U/L (39-308); MB/CK RELATIVE INDEX 1.14 (< OR =4); TROPONIN I < 0.02 NG/ML (< 0.10)
--- NOTE | 2021-01-27 10:52 | REP ---
INDICATION: Altered mental status. COMPARISON: 07/04/2008 TECHNIQUE: 5 mm axial images through the head without contrast. FINDINGS: Scans windowed for bone demonstrate an intact calvarium. The visualized paranasal sinuses are clear with no air-fluid levels. The mastoids are well aerated. Areas of decreased attenuation adjacent to the anterior horns of the lateral ventricles are consistent with ischemic demyelinization. No mass or hemorrhage is identified. The ventricles and sulci are slightly more prominent at this time consistent with mild atrophy in the interim. No changes of acute infarct are appreciated. If the patient has continued symptoms of CVA a follow-up exam in 24 hours may be of value. IMPRESSION: No definite acute infarct is identified. 2. Mild atrophy as compared to the earlier study <Electronically signed by Garland Elena > 01/27/21 1041
--- OUTSIDE RECORDS SUMMARY | 2021-01-27 11:13 | CCD | Continuity of Care Document ---
Author Author Ricardo PENA MD Organization Unknown Address [facility] [place] [address] Phone [phone] Care Team Providers Care Computer Systems Consultant Name Role Phone Xu Martinez MD AUTM [phone] Isaiah Hooker MD AUTM [phone] Penelope Simmons MD AUTM [phone] Shorty Cardenas MD AUTM [phone] Juanpablo Garcia MD AUTM [phone] Problems Active Problems Provider Date Electrocardiogram abnormal Garland Pena MD Onset: 2019 Aortic valve disorder Garland Pena MD Onset: 04/11/2019 Heart valve replacement Garland Pena MD Onset: 0 Mitral valve disorder Garland Pena MD Onset: 04/11/2019 History of coronary artery bypass grafting Heather Lewis Onset: 04/11/2019 Atherosclerotic heart disease of teller coronary arter y without angina pectoris Garland [...] years ago Exercise Type/Frequency Walks sporadically at [employer] stores or around the house Exercise Type/Frequency [...] SIG Qnty Indications Ordering Provide r Date Prednisone 1mg Tablets 3 by mouth every day Unknown 11/24/2020 Ascorbic Acid 500mg Tablets 1 by mouth every day Unknown 05/14/2020 Docusate Sodium 100mg Capsules 1 by mouth twice a day Unknown 05/14/2020 Ferrous Sulfate 324(65Fe) mg Table ts DR 1 by mouth once every day Unknown 05/14/19 21 Coq-10 100mg Capsules 1 by mouth every day Unknown 03/01/2020 Fish Oil [place]-3 1000mg Capsules 1 by mouth daily Unknown 03/01/2020 Tamsulosin HCL 0.4mg Capsules 1 by mouth every day Unknown 02/09/2020 Ezetimibe 10mg Tablets 1 by mouth every day Unknown 02/09/2020 Amoxicillin 500mg Capsules 4 capsules by mouth 1 hour prior to dental procedures (sbe) Un known 02/02/2020 Proair HFA 108(90Base) mcg/Act Aer osol 2 [...] 1 by mouth every day Unknown 04/10/2019 Srkyyxz-Gjvtxmkcb-Xlnw 333-133-8.3mg Tablets 1 po daily Unknown 04/10/2019 [...] Available Vital Signs Date Vital Result Comment 11/25/2020 12:30pm Weight 258.00 lb Home Weight 257lb home weight Height 68 inches 5'8" BMI (Body Mass Index) 39.2 kg/m2 Heart Rate 64 /min regular Respiratory Rate 18 /min BP Systolic Sitting 112 mmHg large cuff, Ra BP Diastolic Sitting 62 mmHg large cuff, Ra BP Systolic Lying Down 116 mmHg BP Diastolic Lying Down 62 mmHg 08/12/2020 9:30am Weight 259.00 lb Home Weight 261lb home weight Height 68 inches 5'8" BMI (Body Mass Index) 39.4 kg/m2 Heart Rate 68 /min somewhat irregular Respiratory Rate 18 /min BP Systolic Sitting 124 mmHg large cuff, Ra BP Diastolic Sitting 56 mmHg large cuff, Ra BP Systolic Lying Down 132 mmHg BP Diastolic Lying Down 54 mmHg Results Test Acquired Date Facility Test Result H/L Range Note Comprehensive Metabolic Profil 11/11/2020 [facility] [phone] Glucose, Fasting 126 mg/dL High 70-100 Blood [...] Ratio 1.1 Normal Laboratory test finding 11/11/2020 [facility] [phone] NT-Pro BNP 145 pg/mL Normal <450 Hemoglobin [...] Little GFR Left 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 Date Code Description Status 11/25/2020 66252 Office/Outpatient Established Mo d MDM 30-39 Min Completed 08/12/2020 91237 Office/Outpatient Established Mo d MDM 30-39 Min Completed 08/12/2020 61030 ECG 12-Lead Completed Medical Devices Description No Information Available Encounters Type Date Location Provider Dx Diagnosis Office Visit 11/25/2020 12:15p Main Office Garland Pena MD I50.32 Chronic diastolic (congestive) heart failure I44.0 Atrioventricular block, firs t degree R94.31 Abnormal electrocardiogram [ ECG] [EKG] I25.10 Athscl heart disease of vasiliy ve coronary artery w/o ang pctrs I11.0 Hypertensive heart disease w ith heart failure I35.1 Nonrheumatic aortic (valve) insufficiency I27.81 Cor pulmonale (chronic) Office Visit 08/12/2020 9:15a Main Office Garland Pena MD I50.32 Chronic diastolic (congestive) heart failure I44.0 Atrioventricular block, firs t degree I25.10 Athscl heart disease of vasiliy ve coronary artery w/o ang pctrs I11.0 Hypertensive heart disease w ith heart failure I35.1 Nonrheumatic aortic (valve) insufficiency I27.81 Cor pulmonale (chronic) Assessments Date Code Description Provider 11/25/2020 I50.32 Chronic diastolic (congestive) h eart failure Garland Pena MD 11/25/2020 I44.0 Atrioventricular block, first Jessy MD 11/25/2020 R94.31 Abnormal electrocardiogram [ECG] [EKG] Garland Pena MD 11/25/2020 I25.10 Atherosclerotic hear t disease of teller coronary artery without angina pectoris Garland Pena MD 11/25/2020 I11.0 Hypertensive heart disease with heart failure Garland Pena MD 11/25/2020 I35.1 Nonrheumatic aortic (valve) insu fficiency Garland Pena MD 11/25/2020 I27.81 Cor pulmonale (chronic) Garland Pena MD 08/12/2020 I50.32 Chronic diastolic (congestive) h eart failure Garland Pena MD 08/12/2020 I44.0 Atrioventricular block, first Jessy MD 08/12/2020 I25.10 Atherosclerotic hear t disease of teller coronary artery without angina pectoris Garland Pena MD 08/12/2020 I11.0 Hypertensive heart disease with heart failure Garland Pena MD 08/12/2020 I35.1 Nonrheumatic aortic (valve) insu fficiency Garland Pena MD 08/12/2020 I27.81 Cor pulmonale (chronic) Garland Pena MD Plan of Treatment Future Appointment(s):* 02/26/2021 12:15 pm - Garland Pena MD at Main Office 11/25/2020 - Garland Pena MD* I50.32 Chronic diastolic (congestive) heart failure* New Labs:* CBC W/Auto Differential, Scheduled: 02/23/21 * CMP, Scheduled: 02/23/21 * NT Probnp QN Ser/Plas, Scheduled: 02/23/21 * I44.0 Atrioventricular block, first degree * R94.31 Abnormal electrocardiogram [ECG] [EKG] * I25.10 Atherosclerotic heart disease of teller coronary artery without angina pectoris* New Labs:* CMP, Scheduled: 02/23/21 * I11.0 Hypertensive heart disease with heart failure* New Labs:* CMP, Scheduled: 02/23/21 * I35.1 Nonrheumatic aortic (valve) insufficiency* New Labs:* CBC W/Auto Differential, Scheduled: 02/23/21 * I27.81 Cor pulmonale (chronic) * All * Comments:* I will ensure that the aforementioned test findings are reported to you along with any further recommendations. Thank you for allowing me to participate in the care of your patient. Best regards. Functional Status Functional Condition Comment Date Status Independent with all ADL's Activ e Mental Status Description No Information Available Referrals Description No Information Available
[2021-01-27] MEDS ORDERED: ACETAMINOPHEN TAB 650MG DOSE (2X325MG) PO PRN (11:50)
[2021-01-27] MEDS ORDERED: GLUCAGON INJ 1MG VIAL SC PRN (12:05)
[2021-01-27] MEDS ORDERED: DEXTROSE 50% 50 ML SYRINGE IV PRN (12:05)
[2021-01-27] MEDS ORDERED: GLUCOSE 4GM CHEW TABLET PO PRN (12:05)
--- NOTE | 2021-01-27 12:11 | HPEPDOC ---
General Date of Admission 01/27/21 Date of Service: Jan 27, 2021 Chief Complaint The patient is a 75-year-old male admitted with a reason for visit of General Medical Complaint. Source: Patient Exam Limitations: No limitations History of Present Illness Patient is 75 years old male with past medical history of hypertension, type 2 diabetes, hyperlipidemia, GERD, CABG presented to hospital with history of expressive aphasia. Patient stated that 2 days ago during lunch with his he could not express himself and had difficulties to talk. Patient stated after 25 minutes his symptoms resolved. He did not go to ER or primary care physician. Today he called the [facility] and Dr. Pena recommended him to come to the emergency. Patient denied any focal deficiency. In ER patient was found to have elevated blood pressure of 185/93, no leukocytosis, glucose level of 230, EKG shows normal sinus rhythm without acute ischemic changes. CT head negative for stroke or acute bleeding. Home Medications Scheduled Acetaminophen (Mapap) 325 Mg Tablet, 2 TAB PO Q4H, (Reported) Allopurinol (Zyloprim) 300 Mg Tablet, 300 MG PO DAILY, (Reported) Ascorbic Acid (Ascorbic Acid) 500 Mg Tablet, 500 MG PO DAILY, (Reported) Aspirin (Aspirin Low Dose) 81 Mg Tab, 81 MG PO DAILY, (Reported) Budesonide/Formoterol (Symbicort 160-4.5 Mcg Inhaler) 6 Gm Hfa.aer.ad, 2 PUFF INH BID, (Reported) Docusate Sodium (Stool Softener) 100 Mg Capsule, 100 MG PO DAILY, (Reported) Ezetimibe (Ezetimibe) 10 Mg Tablet, 10 MG PO DAILY, (Reported) Ferrous Sulfate (Ferrous Sulfate) 325 Mg Tablet.dr, 1 TAB PO DAILY, (Reported) Fluticasone Propionate (Flonase Allergy Relief) 9.9 Ml [place].susp, 2 SPRAY NARES DAILY, (Reported) Gabapentin (Neurontin) 300 Mg Capsule, 300 MG PO BID, (Reported) Glipizide (Glipizide) 10 Mg Tablet, 10 MG PO BID, (Reported) Insulin Detemir (Levemir Flextouch) 100 Unit/1 Ml Insuln.pen, 60 UNIT SC QHS, (Reported) Metformin HCl (Metformin HCl) 1,000 Mg Tablet, 1,000 MG PO BID, (Reported) Omeprazole (Omeprazole) 20 Mg Tablet.dr, 1 TAB PO DAILY, (Reported) Prednisone (Prednisone) 1 Mg Tablet, 3 TAB PO DAILY, (Reported) Sildenafil Citrate (Sildenafil Citrate) 100 Mg Tablet, 100 MG PO ASDIRECTED, (Reported) Tamsulosin HCl (Flomax) 0.4 Mg Capsule, 0.4 MG PO DAILY, (Reported) Torsemide (Torsemide) 20 Mg Tablet, 20 MG PO DAILY, (Reported) Valsartan (Valsartan) 40 Mg Tablet, 40 MG PO DAILY, (Reported) Scheduled PRN Albuterol Sulfate (Proair Hfa) 8.5 Gm Hfa.aer.ad, 2 PUFF INH Q4HP PRN for DYSPNEA, (Reported) Carboxymethylcellulose Sodium (Refresh Tears) 15 Ml Drops, 1 DROP OP QIDP PRN for DRY EYES, (Reported) [nicotine gum] , 4 MG OR Q2HP PRN for SMOKING CESSATION, (Reported) Allergies Coded Allergies: Penicillins (Verified Allergy, Intermediate, Unknown, 01/27/21) lisinopril (Verified Allergy, Intermediate, swelling, 01/27/21) Past Medical History Medical History hypertension, type 2 diabetes, hyperlipidemia, GERD, CABG, obesity, coronary artery disease Surgical History Cholecystectomy, back surgery at level L3, L4, status post laminectomy Family History I personally reviewed family history and found not pertinent Social History * Smoker: former Smoker Alcohol: Denies Drugs: denies A-FIB/CHADSVASC A-FIB History Current/History of A-Fib/PAF?: No Current PO Anticoag Therapy: No Review of Systems Constitutional: Denies: Chills Eyes: Denies: Pain ENT: Denies: Head Aches Skin: Denies: Rash Pulmonary: Denies: Dyspnea, Cough Cardiovascular: Denies: Chest Pain Gastrointestinal: Denies: Nausea Genitourinary: Denies: Dysuria Hematologic: Denies: Bruising Endocrine: Denies: Polydipsia Musculoskeletal: Denies: Neck Pain Neurological: Reports: Change in speech Psych: Reports: Mood Normal Physical Examination General Exam: Positive: Alert, Cooperative Eye Exam: Positive: PERRLA Neck Exam: Positive: Supple; Negative: JVD Chest Exam: Positive: Clear to auscultation Heart Exam: Positive: Rate Normal Telemetry: Negative: No significant arrhythmia Abdomen Exam: Positive: Normal bowel sounds Extremity Exam: Negative: Clubbing Skin Exam: Positive: Nl turgor and temperature Neuro Exam: Positive: Strength at 5/5 X4 ext, Cranial Nerves 3-12 NL Psych Exam: Positive: Oriented x 3 Vital Signs Vital Signs Date Time Temp Pulse Resp B/P (MAP) Pulse Ox O2 Delivery O2 Flow Rate FiO2 01/27/21 10:16 161/78 01/27/21 09:14 97.5 69 16 97 Room Air Laboratory Data Labs 24H Laboratory Tests 2 01/27/21 10:07: Immature Granulocyte % (Auto) 0.9, Neutrophils (%) (Auto) 72.9H, Lymphocytes (%) (Auto) 15.7L, Monocytes (%) (Auto) 8.2H, Eosinophils (%) (Auto) 1.5, Basophils (%) (Auto) 0.8, Neutrophils # (Auto) 5.7, Lymphocytes # (Auto) 1.2L, Monocytes # (Auto) 0.6, Eosinophils # (Auto) 0.1, Basophils # (Auto) 0.1, Nucleated Red Blood Cells % (auto) 0.0, Activated Partial Thromboplast Time 34.8, Total Creatine Kinase 236, Creatine Kinase MB 2.7, Creatine Kinase MB Relative Index 1.14, Troponin I < 0.02 01/27/21 10:12: POC Glucose (Misc Panel) 230H, POC Sodium (Misc Panel) 142, POC Potassium (Misc Panel) 4.3, POC Chloride (Misc Panel) 103, POC Total CO2 (Misc Panel) 28.0H, POC Blood Urea Nitrogen (Misc Panel 23, POC Ionized Calcium (Misc Panel) 4.8, POC Creatinine (Misc Panel) 1.1, POC Hematocrit (Misc Panel) 45.0 01/27/21 11:26: CBC/BMP Laboratory Tests 01/27/21 10:07 Assessment/Plan Patient is 75 years old male with past medical history of hypertension, type 2 diabetes, hyperlipidemia, GERD, CABG presented to hospital with history of expressive aphasia. Patient stated that 2 days ago during lunch with his he could not express himself and had difficulties to talk. Patient stated after 25 minutes his symptoms resolved. He did not go to ER or primary care physician. Today he called the [facility] and Dr. Pena recommended him to come to the emergency. Patient denied any focal deficiency. In ER patient was found to have elevated blood pressure of 185/93, no leukocytosis, glucose level of 230, EKG shows normal sinus rhythm without acute ischemic viveros es. CT head negative for stroke or acute bleeding. Problems (1) TIA (transient ischemic attack) Status: Acute Problem Text: Patient has multiple risk factors for stroke including obesity, hypertension, hyperlipidemia, coronary artery disease differential diagnosis includes TIA, stroke, hypertensive urgency CT head negative We will check MRI/MRA, CT angiogram of the neck, echo Telemetry (2) Hyperlipidemia Status: Chronic Problem Text: Continue statin (3) Coronary artery disease Status: Chronic Problem Text: No any acute changes on the EKG Patient denies any chest pain Continue home meds (4) Type 2 diabetes mellitus Status: Chronic Problem Text: Detemir Insulin sliding scale Diabetes diet (5) Hypertension Status: Chronic Problem Text: Continue home meds Plan / VTE VTE Prophylaxis Ordered?: Yes FAHAD TERESA DO Jan 27, 2021 12:11
[2021-01-27 12:19] LABS: RSV AMPLIFICATION NEGATIVE (NEGATIVE)
[2021-01-27] MEDS ORDERED: ISOVUE-370 76% 100ML VIAL As Ordered ONE (12:30)
--- OUTSIDE RECORDS SUMMARY | 2021-01-27 12:40 | CCD ---
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 Name Role Phone SYSTEM IN, NOT IN PROVIDER Unavailable Unavailable Jacky SOLORIO MD Unavailable Unavailable Jacky SOLORIO MD Unavailable Unavailable Jacky SOLORIO MD Unavailable Unavailable Jacky SOLORIO MD Unavailable Unavailable Jacky SOLORIO MD Unavailable Unavailable Jacky SOLORIO MD Unavailable Unavailable Jacky SOLORIO MD Unavailable Unavailable Jacky SOLORIO MD Unavailable Unavailable Jacky SLOORIO MD Unavailable Unavailable Jacky SOLORIO MD Unavailable Unavailable Jacky SOLORIO MD Unavailable Unavailable Jacky SOLORIO MD Unavailable Unavailable Jacky SOLORIO MD Unavailable Unavailable Jacky SOLORIO MD Unavailable Unavailable Jacky SOLORIO MD Unavailable Unavailable Jacky SOLORIO MD Unavailable Unavailable Jacky SOLORIO MD Unavailable Unavailable Jacky SOLORIO MD Unavailable Unavailable Jacky SOLORIO MD Unavailable Unavailable Jacky SOLORIO MD Unavailable Unavailable Jacky SOLOIRO MD Unavailable Unavailable Jacky SOLORIO MD Unavailable [...] Unavailable Flip Cardenas MD Unavailable Unavailable Flip Cradenas MD Unavailable Unavailable Flip Cardenas MD Unavailable [...] Unavailable MEJIMoon CONLEY MD Unavailable Unavailable MEJIMoon COLNEY MD Unavailable Unavailable MEJIMoon CONLEY MD Unavailable [...] is protected by Article 27-F of the [facility] Public Health law. If you continue you may have access to information: Regarding HIV / AIDS; Provided by facilities licensed or operated by the [facility] Office of Mental Health; or Provided by the [facility] Office for People With Developmental Disabilities. If such information is present, then the following [facility] mandated warning applies: This information has [...] law may result in a fine or usp sentence or both. A general authorization for [...] 12:15:00 PM EDT [facility] ([facility]) Office Visit Attender: Shorty Cardenas MD Main office - [facility] 09/18/2020 11:30:00 AM EDT MED[facility] ([facility]) Outpatient Attender: JORDYN SOLORIO MD Main Office 08/12/2020 09:15:00 AM EDT [facility] ([facility]) Office Visit Attender: Shorty Cardenas MD [facility] office - [facility] 06/04/2020 12:30:00 PM EDT MEDENT ([facility]) Outpatient Attender: JORDYN SOLORIO MD Main Office 05/15/2020 08:00:00 AM EST MED[facility] ([facility]) Outpatient Attender: KYRA MITCHELL 12:00:00 AM EST - 04/16/2020 11:28:07 AM EST Unspecified optic atrophy [facility] Unspecified optic atrophy Outpatient Attender: CHITO COBIAN MDReferrer: Erica Benson [id number] 04/16/2020 12:00:00 AM EST - 04/16/2020 10:54:42 AM EST Unspecified optic atrophy [facility] Unspecified optic atrophy Outpatient Attender: JORDYN SOLORIO MD Main Office 02/10/2020 10:15:00 AM EST MED[facility] ([facility]) Office Visit Attender: Shorty Cardenas MD [facility] 02/06/2020 01:45:00 PM EST MED[facility] ([facility]) Inpatient Attender: Isaiah Hooker MDAdmit ter: Isaiah Hooker MDReferrer: PROVIDER SYSTEM IN [address] [place] [address] 02/08/2019 12:00:00 AM EST - 02/21/2019 02:24:00 PM EST Other nonrheumatic aortic valve disorders [facility] Other nonrheumatic aortic valve disorder s Patient discharged. Immunizations Vaccine Date Status Description Data Source(s) COVID-19 VACCINE Moderna 04/30/2020 12:00:00 AM EST completed [facility]IS Vaccine Series Complete: YESThis Data wa s Submitted to [facility] Via [facility]DC. COVID-19 VACCINE Moderna 04/02/2020 12:00:00 AM EST completed [facility]SIIS Vaccine Series Complete: NOThis Data was Submitted to [facility] Via XDC. Medications Medication Brand Name Start Date Product Form Dose Route Admi nistrative Instructions Pharmacy Instructions Status Indications Reaction Description Data Source(s) Prednisone 1 MG Oral Tablet Prednisone 11/24/2020 12:00:00 AM EDT ORAL active [facility] Docusate Sodium 100 MG Oral Capsule Docusate Sodium 05/14/2020 1 2:00:00 AM EST ORAL active MED[facility] ( [facility]) ferrous sulfate 325 MG Delayed Release Oral Tablet Ferrous S ulfate 05/14/2020 12:00:00 AM EST ORAL active M EDENT ([facility]) Ascorbic Acid 500 MG Oral Tablet Ascorbic Acid 05/14/2020 12:00:00 AM EST ORAL active [facility] ([facility]) coenzyme Q10 100 MG Oral Capsule Coq-10 03/01/2020 12:00:00 AM EST ORAL active [facility] docosahexaenoic acid 120 MG / Eicosapentaenoic Acid 18 0 MG Oral Capsule Fish Oil [place]-3 03/01/2020 12:00:00 AM EST ORAL active MED[facility] ([facility]) ezetimibe 10 MG Oral Tablet Ezetimibe 02/09/2020 12:00:00 AM EST ORAL active MEDENT ([facility]) Tamsulosin hydrochloride 0.4 MG Oral Capsule Tamsulosin HCL 02/09/2020 12:00:00 AM EST ORAL active [facility] ([facility]) Amoxicillin 500 MG Oral Capsule Amoxicillin 02/02/2020 12:00:00 AM EST ORAL active MED[facility] ([facility]) coenzyme Q10 100 MG Oral Capsule Coq-10 11/05/2019 12:00:00 AM EDT ORAL completed MEDENT ([facility]) Aspirin 81 MG Delayed Release Oral Table t Aspirin 81 MG Oral Tablet Delayed Release Aspirin 81 MG Oral Tablet Delayed Release 02/22/2019 12:00:00 AM EST 81 mg Oral active Take 1 tablet by mouth d [facility] valsartan 40 MG Oral Tablet Valsartan 40 MG Oral Table t (DIOVAN) Valsartan 40 MG Oral Tablet (DIOVAN) 02/22/2019 12:00:00 AM EST 40 mg Oral active Take 1 tablet by mouth [facility] Amlodipine 10 MG Oral Tablet amLODIPine Besylate 10 MG Oral Tablet (NORVASC) amLODIPine Besylate 10 MG Oral Tablet (NORVASC) 02/22/2019 12:00:00 AM EST 10 mg Oral active Take 1 tablet by mouth d [facility] Insurance Providers Payer name Policy type / Coverage type Policy ID Covered green party ID Covered green party's relationship to gee Policy Gee Plan Information UHC UNITED MEDICARE COMPLETE G [id number] Self [id number] OTHER B [id number] Self [id number] OTHER B [id number] Self [id number] OTHER B [id number] Self [id number] OTHER B [id number] Self [id number] UN MEDICARE COMPLETE - O/P [id number] 18 [id number] UN MEDICARE COMPLETE - O/P [id number] 18 [id number] [facility] [id number] SP [id number] [facility] [id number] 18 [id number] ADMINSTRATION -O/P [id number] 18 [id number] [facility] [id number] SP [id number] 'S ADMINISTRATION [id number] SP [id number] MEDICARE COMPLETE-[facility] O [id number] S [id number] [employer] O [id number] S [id number] [facility] O [id number] S [id number] MEDICARE C [id number] S [id number] [facility] O [id number] S [id number] MEDICARE [id number] SP [id number] MEDICARE [id number] SP [id number] [facility]Medicare Solu Commercial [id number] Self [id number] ADMINSTRATION -O/P [id number] 18 [id number] 'S ADMINSTRATION-O/P UNAVAILABLE UNAVAILABLE [facility] HLCR/Medicare Solu Commercial [id number] Self [facility] [id number] SP [id number] [facility] P [id number] S [id number] OPTUM VA CCN [id number] SP [id number] [facility] [id number] SP [id number] 'S ADMINISTRATION [id number] SP [id number] [employer] O [id number] S [id number] [facility] [id number] SP [id number] Problems, Conditions, and Diagnoses Code Display Name Description Problem Type Effective Dates Data Source(s) H46.8 Other optic neuritis Other optic neuritis Diagnosis 04/16/2020 11:12:32 AM [facility] 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 Unspecified optic atrophy Di agnosis 04/16/2020 11:12:32 AM [facility] I27.81 Chronic cor pulmonale Chronic cor pulmonale Problem 08/12/2020 12:00:00 AM EDT MEDENT ([facility]) 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 Problem 05/15/2020 12:00:00 AM EST MED[facility] ([facility]) R07.89 Chest pain Chest pain Problem 02/10/2020 12:00:00 AM ES T MED[facility] ([facility]) [id number] 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 Problem 02/10/2020 12:00:00 AM EST MED[facility] ([facility]) [id number] Angina co-occurrent and due to coronary arteriosclerosis Angina co-occurrent and due to coronary arteriosclerosis Problem 02/10/2020 12:00:00 AM EST MED[facility] ([facility]) Surgeries/Procedures Procedure Description Date Indications Data Source(s) OFFICE OUTPATIENT VISIT 25 MINUTES 11/25/2020 12:00:00 AM EDT MED[facility] ([facility]) PHYSICIAN TELEPHONE EVALUATION 11-20 MIN 09/18/2020 12 :00:00 AM EDT MED[facility] ([facility]) ECG ROUTINE ECG W/LEAST 12 LDS W/I&R 08/12/2020 12:00: 00 AM EDT MED[facility] ([facility]) OFFICE OUTPATIENT VISIT 25 MINUTES 08/12/2020 12:00:00 AM EDT MED[facility] ([facility]) NON-INVASIVE PHYSIOLOGIC STUDY EXTREMITY 3 LEVLS 06/19 12:00:00 AM EDT MED[facility] ([facility] NON-INVASIVE PHYSIOLOGIC STUDY EXTREMITY 3 LEVLS 06/19 12:00:00 AM EDT MED[facility] ([facility] ) TSTG ANS FUNCJ CARDIOVAGAL INNERVAJ PARASYMP 1 12:00:00 AM EDT MED[facility] ([facility] ) TESTING AUTONOMIC NERVOUS SYSTEM FUNCTION 06/19/2020 1 2:00:00 AM EDT MEDENT ([facility], ) PHYSICIAN TELEPHONE EVALUATION 11-20 MIN 06/04/2020 12 :00:00 AM EDT MEDENT ([facility], ) ECG ROUTINE ECG W/LEAST 12 LDS W/I&R 05/15/2020 12:00: 00 AM EST MED[facility] ([facility]) MYOCARDIAL SPECT MULTIPLE STUDIES 03/02/2020 12:00:00 AM EST MED[facility] ([facility]) CV STRS TST XERS&/OR RX CONT ECG PHYS SI&R 03/02/2020 12:00:00 AM EST MED[facility] ([facility]) ECG ROUTINE ECG W/LEAST 12 LDS W/I&R 02/10/2020 12:00: 00 AM EST MED[facility] ([facility]) Results ID Date Data Source [id number] 11/11/2020 10:01:00 AM EDT MED[facility] ([facility]) Name Value Range Interpretation Code Description Data Tana rce(s) Supporting Document(s) Natriuretic peptide.B prohormone N-Terminal [Mass/volu me] in Serum or Plasma 145 pg/mL MED[facility] ([employer] [facility]) ID Date Data Source [id number] 11/11/2020 10:01:00 AM EDT [facility] Name Value Range Interpretation Code Description Data Tana rce(s) Supporting Document(s) Glucose, Fasting 126 mg/dL 70-100 [facility]) Blood Urea Nitrogen 23 mg/dL 7-18 MED[facility] ([facility]) Glomerular Filtration Rate Laboratory test result MEDENT ([facility]) <content>Units are mL/min/1.73 m2</content>
<content></content>
<content>Chronic Kidney Disease Staging per NKF:</content>
<content></content>
<content>Stage I & II GFR >=60 Normal to Mildly Decreased</content>
<content>Stage III GFR 30- 59 Moderately Decreased</content>
<content>Stage IV GFR 15-29 Severely Decreased</content>
<content>Stage V GFR <15 Very Little GFR Left</content>
<content>ESRD GFR <15 on WHOLESALER</content>
<content></content> Creatinine For GFR 1.20 mg/dL 0.70-1.30 MED[facility] ([facility]) Sodium Level 140 meq/L 136-145 [facility] ([facility]) Potassium Serum 4.2 meq/L 3.5-5.1 [facility] ([facility]) Chloride Level 107 meq/L 98-107 [facility] ([facility]) Carbon Dioxide Level 29 meq/L 21-32 MED[facility] ([facility]) Calcium Level 8.4 mg/dL 8.8-10.2 [facility] ([facility]) Anion Gap 4 meq/L 8-16 [facility] ([facility]) Alt/SGPT 37 U/L 12-78 [facility] ([facility]) Ast/Sgot 21 U/L 7-37 [facility] ([facility]) Alkaline Phosphatase 85 U/L 45-117 [facility] ([facility]) Bilirubin,Total 0.6 mg/dL 0.2-1.0 [facility] ([facility]) Total Protein 7.0 GM/DL 6.4-8.2 [facility] ([facility]) Albumin/Globulin Ratio 1.1 [facility] ([facility]) Albumin 3.7 GM/DL 3.2-5.2 [facility] ([facility]) ID Date Data Source [id number] 07/13/2020 10:18:00 AM EDT [facility] ([facility] ID Date Data Source [id number] 07/13/2020 10:18:00 AM EDT MEDENT (Cardi ology [...] Dioxide 28 [facility] ([facility]) Calcium 8.7 [facility] Glomerular filtration rate/1.73 sq M.pre dicted [Volume Rate/Area] in Serum or Plasma by Creatinine-based formula (MDRD) Laboratory test result [facility] ([facility]) ID Date Data Source [id number] 07/13/2020 10:18:00 AM EDT [facility] Name Value Range Interpretation Code Description Data Tana rce(s) Supporting Document(s) Hemoglobin A1c/Hemoglobin.total in Blood 7.3 [facility] ([facility]) ID Date Data Source [id number] 04/16/2020 04:42:08 PM [facility] Name Value Range Interpretation Code Description Data Tana rce(s) Supporting Document(s) Progress Note [facility] CCPOMf4vYaGLMnVo28/AZPpuFGBcr3DiKZdaTTj3ZDtrPNVsW6ZaMEF6mP0cESV8IDcYFqCkQtApEMT3 lbm [file] dust operator/qVP0kycH2dl/ddn9sNoE87pztH2Pd+4aTh1yd3XYzj6qe80xRoJ2+HpPxn1BJ4JzejwUQ7jB5t+3E [file] /O6XQ+uEp6c/XDD53T+GmbpI905hlGxpn6u9A7cuLxQ7z5DOSAL+MR90EdKN/+rydp0k+dust operator/7nKo28ef [file] AgICAgICAgICAgICAgICAgICAgICAgICAgICAgICAg ICAgICAgICAgICAgICAgICAgICAgICAgICAgICAgICAgICANCiAgICAgICAgICAgICAgICAgICAgICAg ICAgICAgICAgICAgICAgICAgICAgICAgICAgICAgICAgICAgICAgICAgICAgICAgICAgICAgICAgICAg ICAgICAgICAgICAgICAgICANCiAgICAgICAgICAgIC AgICAgICAgICAgICAgICAgICAgICAgICAgICAgICAgICAgICAgICAgICAgICAgICAgICAgICAgICAgIC AgICAgICAgICAgICAgICAgICAgICAgICAgICANCiAgICAgICAgICAgICAgICAgICAgICAgICAgICAgIC AgICAgICAgICAgICAgICAgICAgICAgICAgICAgICAg ICAgICAgICAgICAgICAgICAgICAgICAgICAgICAgICAgICAgICANCiAgICAgICAgICAgICAgICAgICAg ICAgICAgICAgICAgICAgICAgICAgICAgICAgICAgICAgICAgICAgICAgICAgICAgICAgICAgICAgICAg ICAgICAgICAgICAgICAgICAgICANCiAgICAgICAgIC AgICAgICAgICAgICAgICAgICAgICAgICAgICAgICAgICAgICAgICAgICAgICAgICAgICAgICAgICAgIC AgICAgICAgICAgICAgICAgICAgICAgICAgICAgICANCiAgICAgICAgICAgICAgICAgICAgICAgICAgIC AgICAgICAgICAgICAgICAgICAgICAgICAgICAgICAg ICAgICAgICAgICAgICAgICAgICAgICAgICAgICAgICAgICAgICAgICANCiAgICAgICAgICAgICAgICAg ICAgICAgICAgICAgICAgICAgICAgICAgICAgICAgICAgICAgICAgICAgICAgICAgICAgICAgICAgICAg ICAgICAgICAgICAgICAgICAgICAgICANCiAgICAgIC AgICAgICAgICAgICAgICAgICAgICAgICAgICAgICAgICAgICAgICAgICAgICAgICAgICAgICAgICAgIC AgICAgICAgICAgICAgICAgICAgICAgICAgICAgICAgICANCiAgICAgICAgICAgICAgICAgICAgICAgIC AgICAgICAgICAgICAgICAgICAgICAgICAgICAgICAg ICAgICAgICAgICAgICAgICAgICAgICAgICAgICAgICAgICAgICAgICAgICANCjw/kZWjA7fddQRubgS1 B1zxEi1WTo1IGC1bk0XjHBLrRGogwnPbYcsLAzAbQADnWcxKTej7QBepJW1LtOZbQ9SrM6ChLNmmOJ0U FDLmSHFosEGlQXHqJCPgGxH9IZAyUFyjEO6JfUOoJM wnRZHdGHKsXdRqKFNhDRCyRKIuOSGuOYYHMQAcENVbYqKcHVOmBMAwFErwORSLPYC3ISJxRaWoZIvjWY 9Rp3FgwUZ3FTv+Tb5ZNF4jh4SaZOntJxWbKW9iri0TEIkTMgTuE7ScjqM3HKE5QVHxBz1UNYUcBHTdeV RdSrAxJPNPNbPuE4GkwY63EFJDUc0+DQplbmRvYmoN EcN4OEDvk2FnBYh6BT0FAGFdFHk5oALoZVVeT8Dtm9VsQz47XPCyDtvjEEQszuGJDX0dkbpqgqimFQMv MLAyVL3qBE9zTRHqZDP5WfXdSMXVQK0ONKXnUWNnqVBoRZQfYXKBOS4MVHvuHWD5VFAxycZynXXgTKdb ES4DIWMlyrMnMaLaOAFELMp+Sp8VXG8sf1SlPBkiGH XyDT6vng2EPPiEZnJaL7O6jTJvD6C2BRbiTx2RKFKpORUjLhOlAWBHRRcrFF5YEB3eovG3GP2TiCBiUN OkAWGdvMTzTOh1B97dgSFwAHvjHU0YQUV+Jorge+Zn0LXRFbDRWwGWSqJnUlSBJUVvUwN8DbU5KAu7PlF6 OlZX29lUubylWmEDbyWS8SLD6zSEToRTRFVH2PfYNz iO7hreNkEcMjZPGVBnVyD17vgFBzXSVqHWW2NDEwIx9ZSUXeY8LycbTnbEyznqXyEGFbSKSDUK4UBKua jqDzhUOjoFerEZ97uQqmUC0XRe9RGdTdJK1giy5EsEJrAg8FIPRnGF3OKGUrOQNmNMHlOLG2ZYLeFbMi UKcwTXSrHGPyJEY1VUSwWGXpHE6RHpVzSDGbSRB4FH TgXLQwVBZfwp7TDRTeOKS7SLHlHBZaVOXtKEIhFLnaCCCqIDIeOBP0SUUzYVJeRJ6EAzQxPHXbNFU3Qd YxFGKqLJRfoe3CDUVlOIJeJJu5SPWiDAWhBNRfXEfsKADkBWF9FTrxSKHqIWWgWS0QIzDoZNCvAWpzTU WiPXYvSKSexm1GDHJsSZKeQHx2FXRzIVCeOSHgCAfh WCQdPBLjOGeqQZRvVMWuKI3GUdXdNQYqCIW0ONLcNFEeHYUorx5JGYPgUCDqSKm7GCYjRGRkFBKmOJpi OBJuTRP9ZQN1WUDyEQYwVJ6MFbJtMUFfAQnbIoZiVBSoYWRgls7MBKTnYRYdANE5NuPhGDGiWYGqJLrp DRFnJJQnLCK4HIFmRJKzXZ5YJtFzSBOcTkB3JXIyVW IpMMGidx9JNUWtSPHaOUjfUOVaMOVxOOJjBOvbSUZpFYG8LvR1ZMEmQKSjLV9RUfKbEDTuGtJ9DNAvZK BiRNJlet3FYEZsGOMiMdS0ZwXlPNHzNOIsPWxuFQYxTEN6FjvcCTGnCRJgJI3SXgWvBCCxTba1CRUzOD NyMDZilx3YYAGfGMIdXAiqGiRoBYVwYHUrEVniYIRj CUO6MHA3THVgCCEfZI4KTiGrHOVlFmipNYSyTEYgVVUrev3MNJMcKFL0EHHxNoIjDHWsQYUcQHxhVBOo NZBzJGF7BNJsEFRjVW1TYiSiXPNtCMGvVlZhLDCnBYRcfg0CRBIwIRO6QRGzRiZxKGExXJHyHRjdNZCz JUYkOASbOUOuOZLrGX4BYuLnNOPnSDU6SZQrSZBhUR Cosf6FDAEuGLV6QhM6UWRaNFDcQRSiIDiiTUYcWKKuVMxnHIZwFTCoUW9TTlJcMFLxAPSsCLgkMDFjUB Kuot6MIOHyRCT5PXt8DRIgMUAjXPZtEHpyKKIbNKT9GEO7HTVhHABuKK3DTdFiZCKrFMQ7PBBhMIEzMC Dlnc6JkOQltBcgjo2IJMgQMu2QtXenZJL5IFavRs7l pZZcDVXrVPFLPk8DqmWmAVOhPJKEXBfqIDZaNFWbGlCaRDWySbE0DvW7DKP5WZV4OkGkFYn1RNF9LvOv NmM4ZwHuPPUlRXEaIRmdNqHuSWX9OvWfKJXiYwM2DoPoAgF+AZ6gCPg+Pv1Fa8ClmiS2elHyUTm9JDUp Pq2CMUZZQ4PMFx== ID Date Data Source [id number] 02/10/2020 12:56:00 PM EST [facility] ([facility]) Name Value Range Interpretation Code Description Data Tana rce(s) Supporting Document(s) Natriuretic peptide.B prohormone N-Terminal [Mass/volu me] in Serum or Plasma 230 pg/mL MED[facility] ([facility], ) ID Date Data Source [id number] 02/10/2020 12:56:00 PM EST [facility] ([facility]) Name Value Range Interpretation Code Description Data Tana rce(s) Supporting Document(s) Glucose, Fasting 227 mg/dL 70-100 [facility] ([facility]) Creatinine For GFR 1.30 mg/dL 0.70-1.30 [facility] ([facility]) Blood Urea Nitrogen 18 mg/dL 7-18 MED[facility] ([facility], ) Glomerular Filtration Rate 57.3 MED ENT ([facility]) <content>Units are mL/min/1.73 m2</content>
<content></content>
<content>Chronic Kidney Disease Staging per NKF:</content>
<content></content>
<content>Stage I & II GFR >=60 Normal to Mildly Decreased</content>
<content>Stage III GFR 30- 59 Moderately Decreased</content>
<content>Stage IV GFR 15-29 Severely Decreased</content>
<content>Stage V GFR <15 Very Little GFR Left</content>
<content>ESRD GFR <15 on WHOLESALER</content>
<content></content> Sodium Level 138 meq/L 136-145 MED[facility] ([facility]) Chloride Level 104 meq/L 98-107 MED[facility] ([facility]) Carbon Dioxide Level 30 meq/L 21-32 MED[facility] ([facility]) Potassium Serum 5.0 meq/L 3.5-5.1 MED[facility] ([facility], ) Calcium Level 8.9 mg/dL 8.8-10.2 MED[facility] ([facility], ) Anion Gap 4 meq/L 8-16 MED[facility] ([facility], ) Phosphorus Level 3.0 mg/dL 2.5-4.9 [facility] ([facility]) Albumin 3.8 GM/DL 3.2-5.2 MED[facility] ([facility]) ID Date Data Source [id number] 02/10/2020 12:56:00 PM EST [facility] Name Value Range Interpretation Code Description Data Tana rce(s) Supporting Document(s) Natriuretic peptide.B prohormone N-Terminal [Mass/volu me] in Serum or Plasma 230 pg/mL [facility] ([employer] [facility]) ID Date Data Source [id number] 02/10/2020 12:56:00 PM EST [facility] Name Value Range Interpretation Code Description Data Tana rce(s) Supporting Document(s) Glucose, Fasting 227 mg/dL 70-100 [facility] Blood Urea Nitrogen 18 mg/dL 7-18 [facility] ([facility]) Creatinine For GFR 1.30 mg/dL 0.70-1.30 [facility] ([facility]) Glomerular Filtration Rate 57.3 MED ENT ([facility]) <content>Units are mL/min/1.73 m2</content>
<content></content>
<content>Chronic Kidney Disease Staging per NKF:</content>
<content></content>
<content>Stage I & II GFR >=60 Normal to Mildly Decreased</content>
<content>Stage III GFR 30- 59 Moderately Decreased</content>
<content>Stage IV GFR 15-29 Severely Decreased</content>
<content>Stage V GFR <15 Very Little GFR Left</content>
<content>ESRD GFR <15 on WHOLESALER</content>
<content></content> Sodium Level 138 meq/L 136-145 [facility] ([facility]) Potassium Serum 5.0 meq/L 3.5-5.1 [facility] ([facility]) Carbon Dioxide Level 30 meq/L 21-32 [facility] ([facility]) Chloride Level 104 meq/L 98-107 [facility] ([facility]) Anion Gap 4 meq/L 8-16 [facility] Calcium Level 8.9 mg/dL 8.8-10.2 [facility] ([facility]) Phosphorus Level 3.0 mg/dL 2.5-4.9 [facility] ([facility]) Albumin 3.8 GM/DL 3.2-5.2 [facility] Procedure Social History Code Duration Value Status Description Data Source(s ) Alcohol intake 04/16/2020 12:00:00 AM EST Current drinker of al cohol (finding) completed Current drinker of alcohol (finding) [facility] Tobacco use and exposure 04/16/2020 12:00:00 AM EST Current user co mpleted Current user [facility] Smoking 04/16/2020 12:00:00 AM EST Former smoker completed Former smoker [facility] Vital Signs ID Date Data Source UNK Name Value Range Interpretation Code Description Data Source(s) Body weight 258.00 [lb_av] 258.00 [lb_av] MEDEN T ([facility]) Body height 68 [in_i] 68 [in_i] [facility] ([facility]) 5'8" Body mass index (BMI) [Ratio] 39.2 kg/m2 39.2 k g/m2 [facility] ([facility]) Heart rate 64 /min 64 /min [facility] ([facility]) regular Respiratory rate 18 /min 18 /min [facility] ( [facility]) Systolic blood pressure--sitting 112 mm[Hg] 112 mm[Hg] [facility] ([facility]) large cuff, Ra Diastolic blood pressure--sitting 62 mm[Hg] 62 mm[Hg] [facility] ([facility]) large cuff, Ra Systolic blood pressure--supine 116 mm[Hg] 116 mm[Hg] [facility] ([facility]) Diastolic blood pressure--supine 62 mm[Hg] 62 mm[Hg] [facility] ([facility]) Respiratory rate 12 /min 12 /min MED[facility] ( [facility]) Body height 68 [in_i] 68 [in_i] MED[facility] ([facility]) 5'8" Body weight 250.00 [lb_av] 250.00 [lb_av] MEDEN T ([facility]) Body mass index (BMI) [Ratio] 38.0 kg/m2 38.0 k g/m2 MEDENT ([facility]) [place] body weight 154 [lb_av] 154 [lb_av] MEDEN T ([facility]) Body mass index (BMI) [Ratio] 39.4 kg/m2 39.4 k g/m2 [facility] ([facility]) Body weight 259.00 [lb_av] 259.00 [lb_av] MEDEN T ([facility]) Body height 68 [in_i] 68 [in_i] [facility] ([facility] 5'8" Heart rate 68 /min 68 /min [facility] ([facility]) somewhat irregular Respiratory rate 18 /min 18 /min [facility] ( [facility]) Systolic blood pressure--sitting 124 mm[Hg] 124 mm[Hg] [facility] ([facility]) large cuff, Ra Diastolic blood pressure--sitting 56 mm[Hg] 56 mm[Hg] [facility] ([facility]) large cuff, Ra Systolic blood pressure--supine 132 mm[Hg] 132 mm[Hg] [facility] ([facility]) Diastolic blood pressure--supine 54 mm[Hg] 54 mm[Hg] [facility] ([facility]) Body weight 250.00 [lb_av] 250.00 [lb_av] MEDEN T ([facility]) Body mass index (BMI) [Ratio] 38.0 kg/m2 38.0 k g/m2 [facility] ([facility]) [place] body weight 154 [lb_av] 154 [lb_av] MEDEN T ([facility]) Body height 68 [in_i] 68 [in_i] [facility] ([facility]) 5'8" Respiratory rate 12 /min 12 /min [facility] ( [facility]) Body height 68 [in_i] 68 [in_i] [facility]) 5'8" Body mass index (BMI) [Ratio] 39.8 kg/m2 39.8 k g/m2 [facility] ([facility]) Heart rate 74 /min 74 /min [facility] ([facility]) regular Respiratory rate 18 /min 18 /min [facility] ( [facility]) Systolic blood pressure--sitting 119 mm[Hg] 119 mm[Hg] [facility] ([facility]) large cuff, Ra Body weight 262.00 [lb_av] 262.00 [lb_av] MEDEN T ([facility]) Diastolic blood pressure--sitting 58 mm[Hg] 58 mm[Hg] [facility] ([facility]) large cuff, Ra Systolic blood pressure--supine 128 mm[Hg] 128 mm[Hg] [facility] ([facility]) Diastolic blood pressure--supine 60 mm[Hg] 60 mm[Hg] [facility] ([facility]) Heart rate 72 /min 72 /min [facility]) regular Respiratory rate 16 /min 16 /min [facility] ( [facility]) Body weight 268.00 [lb_av] 268.00 [lb_av] MEDEN T ([facility]) Body height 68 [in_i] 68 [in_i] [facility]) 5'8" Body mass index (BMI) [Ratio] 40.7 kg/m2 40.7 k g/m2 [facility] ([facility]) Systolic blood pressure--sitting 112 mm[Hg] 112 mm[Hg] [facility] ([facility]) large cuff, Ra Diastolic blood pressure--sitting 62 mm[Hg] 62 mm[Hg] [facility] ([facility]) large cuff, Ra Systolic blood pressure--supine 118 mm[Hg] 118 mm[Hg] [facility] ([facility]) Diastolic blood pressure--supine 68 mm[Hg] 68 mm[Hg] [facility] ([facility]) Body weight 268.00 [lb_av] 268.00 [lb_av] MEDEN T ([facility]) Body height 68 [in_i] 68 [in_i] [facility] ([facility]) 5'8" Body mass index (BMI) [Ratio] 40.7 kg/m2 40.7 k g/m2 [facility] ([facility]) Respiratory rate 12 /min 12 /min [facility] ( [facility] ) Body height 68 [in_i] 68 [in_i] [facility] ([facility], ) 5'8" Body weight 250.00 [lb_av] 250.00 [lb_av] MEDEN T ([facility], ) Body mass index (BMI) [Ratio] 38.0 kg/m2 38.0 k g/m2 [facility] ([facility], ) [place] body weight 154 [lb_av] 154 [lb_av] MEDEN T ([facility], ) ID Date Data Source [id number] 04/24/2020 01:32:19 PM [facility] Name Value Range Interpretation Code Description Data Source(s) WEIGHT RECORDED 273 lb 273 lb [facility] Body height Measured 69 in 69 in [facility] ID Date Data Source [id number] 08/26/2020 10:29:15 AM [facility] Name Value Range Interpretation Code Description Data Source(s) WEIGHT RECORDED 236 lb 236 lb [facility] Body height Measured 69 in 69 in [facility] TRANSFER FROM [facility] WEIGHT RECORDED 236 lb 236 lb [facility] Body height Measured 69 in 69 in [facility] Patient Treatment Plan of Care Planned Activity Planned Date Details Description Data Source (s) Amlodipine 10 MG Oral Tablet 02/22/2019 12:00:00 AM [facility] Aspirin 81 MG Delayed Release Oral Tablet 02/22/2019 12:00:00 AM Health system valsartan 40 MG Oral Tablet 02/22/2019 12:00:00 AM [facility]
[2021-01-27] MEDS ORDERED: ASPI-161 PO (13:11)
[2021-01-27] MEDS ORDERED: GABA600T4 PO ×2 (13:11)
[2021-01-27] MEDS ORDERED: VALS1TAB66 PO (13:11)
[2021-01-27] MEDS ORDERED: NICO4GUM MT (13:11)
[2021-01-27] MEDS ORDERED: CLAR10CA3 PO (13:11)
[2021-01-27] MEDS ORDERED: EQL50TAB2 PO (13:11)
[2021-01-27] MEDS ORDERED: CALC500T52 PO (13:11)
[2021-01-27] MEDS ORDERED: ZINC1TAB2 PO (13:11)
[2021-01-27] MEDS ORDERED: FERR324T21 PO (13:11)
[2021-01-27] MEDS ORDERED: ALLO300T2 PO (13:11)
[2021-01-27] MEDS ORDERED: HOME MED LIST COMPLETE! XX SCH (13:15)
--- NOTE | 2021-01-27 14:07 | REP ---
INDICATION: TIA COMPARISON: None available TECHNIQUE: 2 mm axial images were obtained following the infusion iodinated contrast. Sagittal and coronal reconstructions were also obtained from the original data set. FINDINGS: Asymmetric right apical pleural thickening is noted with a possible parenchymal density associated with this. If clinically indicated, a dedicated unenhanced CT the chest may be of value. Scattered plaque is seen in each common carotid artery without significant stenosis. Moderate plaque is present at both carotid bifurcations but no significant stenosis is identified at the bifurcations. Both internal carotid arteries are patent all the way through the carotid canals. Both vertebral arteries are patent though the left is dominant as a normal variant. IMPRESSION: No significant stenosis of the common carotid or internal carotid arteries on either side is identified. Moderate irregular plaque is noted at the carotid bifurcations bilaterally which may represent a source for TIA's. <Electronically signed by Garland Elena > 01/27/21 [id number]
[2021-01-27] MEDS ORDERED: DOCUSATE SODIUM 100MG CAPSULE PO PRN (14:35)
[2021-01-27] MEDS ORDERED: ALBUTEROL 90 MCG/ACT 8GM HFA INHALER INH PRN (14:35)
[2021-01-27] MEDS: GABAPENTIN 300 MG CAP PO SCH ×2 (17:35→21:32)
[2021-01-27] MEDS: HumaLOG INSULIN (NovoLOG) PER UNIT SC SCH ×2 (17:36→21:00)
[2021-01-27] MEDS: SYMBICORT 160/4.5MCG INHALER 6GM INH SCH (20:04)
--- NOTE | 2021-01-27 20:35 | ECGEPIP ---
[facility] - ED Test Date: 2021-01-27 Pat Name: JOSE ROBERTO BOYER Department: Room: - Gender: Male Mystery Shopper: JUDITH : 1945 Requested By: Yanira Gill Order Number: [id number] Reading MD: Yanira Gill Measurements Intervals [place] Rate: 56 P: 48 ND: 278 QRS: 0 QRSD: 96 T: 61 QT: 422 QTc: 407 Interpretive Statements Sinus bradycardia with 1st degree AV block with premature atrial complexes delayed r progression NSTTW abnormalities No prior Electronically Signed on 01-27-2021 20:34:54 EST by Yanira Gill
[2021-01-27] MEDS: HEPARIN SOD (PORCINE) 5000UNITS/ML 1ML VIAL/SYRINGE SC SCH (21:32)
[2021-01-27] MEDS: LEVEMIR (INSULIN DETEMIR) 1 UNITS/0.01ML SC SCH (21:32)
--- NOTE | 2021-01-27 23:38 | REPVR ---
PROCEDURE INFORMATION: Exam: MR Head Without Contrast Exam date and time: 01/27/2021 10:48 PM Age: 75 years old Clinical indication: Pain; Headache not specified; Additional info: TIA TECHNIQUE: Imaging protocol: MR of the head without contrast. COMPARISON: CT Head without contrast 01/27/2021 10:08 AM FINDINGS: Multiple punctate foci of increased diffusion and decreased ADC map signal left posterior frontal vertex. Midline structures and cerebellar tonsillar position appear normal. Ventricles, cisterns and sulci are symmetric and normal for age. No intracranial mass, midline shift or abnormal extra-axial fluid. No acute intracranial hemorrhage or hemosiderin deposition. Mild pattern of increased T2 and flair signal in supratentorial white matter. Optic chiasm and pituitary infundibulum appear normal. Normal vascular flow voids in major intracranial arteries and dural venous sinuses. Paranasal sinuses are normally aerated. Mastoid air cells are normally aerated. Optic globes and orbits are unremarkable. IMPRESSION: Multiple acute small vessel nonhemorrhagic infarcts, left posterior frontal and parietal vertex suggesting a possible embolic process. No mass effect Electronically signed by: Ramiro Davalos On 01/27/2021 23:37:57 PM
--- NOTE | 2021-01-27 23:41 | REPVR ---
PROCEDURE INFORMATION: Exam: MRA Head Without Contrast; Arteriography Exam date and time: 01/27/2021 10:48 PM Age: 75 years old Clinical indication: Pain; Headache; Additional info: TIA TECHNIQUE: Imaging protocol: Magnetic resonance angiography head without contrast. Exam focused on the arteries. COMPARISON: CT Head without contrast 01/27/2021 10:08 AM FINDINGS: Anterior circulation: Normal flow signal and luminal caliber in the petrous, cavernous and supraclinoid internal carotid arteries. Normal appearance of the anterior cerebral artery branches and middle cerebral artery branches through the MCA trifurcations. No occlusion, high-grade focal stenosis or dissection. No aneurysm. Posterior circulation: Normal distal vertebral arteries, with patent normal caliber basilar artery, and normal superior cerebellar and posterior cerebral arteries. No occlusion, high-grade stenosis or aneurysm. IMPRESSION: Unremarkable MR angiogram of the [place] of [place] and intracranial vertebrobasilar system. Electronically signed by: Ramiro Davalos On 01/27/2021 23:41:31 PM
[2021-01-28] MEDS: FLUTICASONE PROP 0.05% NASAL SPRAY 16 GM (FLONASE) NARES SCH ×2 (00:42→20:45)
[2021-01-28 05:37] LABS: HEMATOCRIT 42.3 % (42.0-52.0); HEMOGLOBIN 14.2 g/dl (13.5-17.5); MEAN CORPUSCULAR HEMOGLOBIN 31.5 pg (27.0-33.0); MEAN CORPUSCULAR HGB CONC 33.6 g/dl (32.0-36.5); MEAN CORPUSCULAR VOLUME 93.8 fl (80.0-96.0); PLATELET COUNT, AUTOMATED 113 10^3/uL (150-450); RED BLOOD COUNT 4.51 10^6/uL (4.30-6.10); WHITE BLOOD COUNT 7.1 10^3/uL (4.0-10.0)
[2021-01-28 06:00] VITALS: BP 149/78
[2021-01-28 06:00] LABS: ALBUMIN 3.3 GM/DL (3.2-5.2); ALT/SGPT 31 U/L (12-78); BILIRUBIN,TOTAL 0.5 MG/DL (0.2-1.0); BLOOD UREA NITROGEN 17 MG/DL (7-18); CALCIUM LEVEL 8.4 MG/DL (8.8-10.2); CARBON DIOXIDE LEVEL 27 MEQ/L (21-32); CHLORIDE LEVEL 110 MEQ/L (98-107); CREATININE FOR GFR 1.06 MG/DL (0.70-1.30); GLOMERULAR FILTRATION RATE > 60.0 (>42); GLUCOSE, FASTING 112 MG/DL (70-100); MAGNESIUM LEVEL 2.3 MG/DL (1.8-2.4); POTASSIUM SERUM 4.2 MEQ/L (3.5-5.1); SODIUM LEVEL 143 MEQ/L (136-145); TOTAL PROTEIN 6.2 GM/DL (6.4-8.2)
[2021-01-28] MEDS: SYMBICORT 160/4.5MCG INHALER 6GM INH SCH ×2 (07:45→20:19)
[2021-01-28] MEDS: LEVEMIR (INSULIN DETEMIR) 1 UNITS/0.01ML SC SCH ×2 (08:09→20:44)
[2021-01-28] MEDS: LORATADINE 10 MG TAB PO SCH (08:10)
[2021-01-28] MEDS: TORSEMIDE 20 MG TAB PO SCH (08:10)
[2021-01-28] MEDS: HumaLOG INSULIN (NovoLOG) PER UNIT SC SCH ×4 (08:10→20:44)
[2021-01-28] MEDS: allopurinoL 300 MG TAB PO SCH (08:10)
[2021-01-28] MEDS: TAMSULOSIN 0.4 MG CAP PO SCH (08:10)
[2021-01-28] MEDS: OMEPRAZOLE 20 MG CAP PO SCH (08:11)
[2021-01-28] MEDS: ASCORBIC ACID 500 MG TAB PO SCH (08:11)
[2021-01-28] MEDS: VALSARTAN 80 MG TAB (DIOVAN) PO SCH (08:11)
[2021-01-28] MEDS: ASPIRIN 81MG ENTERIC TABLET PO SCH (08:11)
[2021-01-28] MEDS: FERROUS GLUCONATE 324 MG TAB PO SCH (08:11)
[2021-01-28] MEDS: GABAPENTIN 300 MG CAP PO SCH ×3 (08:11→20:45)
[2021-01-28] MEDS: HEPARIN SOD (PORCINE) 5000UNITS/ML 1ML VIAL/SYRINGE SC SCH ×2 (08:12→20:45)
[2021-01-28] MEDS: predniSONE 1 MG TAB PO SCH (08:12)
[2021-01-28] MEDS: EZETIMIBE 10MG TABLET (ZETIA) PO SCH (08:37)
[2021-01-28] MEDS: CLOPIDOGREL 75 MG TAB PO SCH (13:06)
[2021-01-28 14:00] VITALS: BP 145/73
--- NOTE | 2021-01-28 15:22 | IPNPDOC ---
Text Note Date of Service The patient was seen on 01/28/21. NOTE Subjective: No any acute events overnight. Patient denied any focal weaknesses. Objective: GENERAL APPEARANCE: Obese male HEENT: no scleral icterus, no JVD, EOMI CARDIOVASCULAR: S1S2 LUNGS: Diminished lung sounds bilaterally ABDOMEN: soft & not tender w palpation MUSCULOSKELETAL: no cyanosis, no swelling INTEGUMENT: no generalized pallor NEUROLOGICAL: cranial nerve function from 2-12 intact, follows commands, speech not dysarthric Assessment/Plan Patient is 75 years old male with past medical history of hypertension, type 2 diabetes, hyperlipidemia, GERD, CABG presented to hospital with history of expressive aphasia. Patient stated that 2 days ago during lunch with his he could not express himself and had difficulties to talk. Patient stated after 25 minutes his symptoms resolved. He did not go to ER or primary care physician. Today he called the jet handler office and Dr. Pena recommended him to come to the emergency. Patient denied any focal deficiency. In ER patient was found to have elevated blood pressure of 185/93, no leukocytosis, glucose level of 230, EKG shows normal sinus rhythm without acute ischemic changes. CT head negative for stroke or acute bleeding. Problems (1) CVA Patient has multiple risk factors for stroke including obesity, hypertension, hyperlipidemia, coronary artery disease differential diagnosis includes TIA, stroke, hypertensive urgency CT head negative Brain MRI showed multiple acute small vessel nonhemorrhagic infarcts, left posterior frontal and parietal vertex suggesting a possible embolic process. No mass effect Aspirin, Plavix Echo pending Telemetry Appreciate/agree with neurological consult There is concern for paroxysmal atrial fibrillation. Most likely patient will need a loop recorder after discharge. (2) Hyperlipidemia Continue statin (3) Coronary artery disease No any acute changes on the EKG Patient denies any chest pain Continue home meds (4) Type 2 diabetes mellitus Glucose level under control Detemir Insulin sliding scale Diabetes diet (5) Hypertension Continue home meds DVT prophylaxis with heparin 5000 twice daily VS,Fishbone, I+O VS, Fishbone, I+O Laboratory Tests 01/28/21 05:21 Vital Signs Date Time Temp Pulse Resp B/P (MAP) Pulse Ox O2 Delivery O2 Flow Rate FiO2 01/28/21 14:00 98.5 69 18 145/73 (97) 94 Room Air I&O- Last 24 Hours up to 6 AM 01/28/21 06:00 Intake Total 2070 ml Output Total 650 ml Balance 1420 ml FAHAD TERESA DO Jan 28, 2021 15:21
[2021-01-28] MEDS: POLYVINYL ALCOHOL OPHTH SOLN 15 ML(LIQUITEARS) OU SCH ×2 (18:25→20:46)
--- NOTE | 2021-01-28 19:37 | ECHO ---
ECHOCARDIOGRAM DATE OF PROCEDURE: 01/27/2021 Age: Gender: Height: 173 cm Weight: 119 kg REFERRING PHYSICIAN: Dr. Miguelangel Younger INDICATION: Transient cerebral ischemia, unspecified. 2D MEASUREMENTS: Left ventricle diastole 5.2 cm Left ventricle systole 3.6 cm Ventricular septum 1.20 cm Posterior wall 1.26 cm Aortic root 3.7 cm Left atrium 5.3 cm Left atrial volume index 35 DOPPLER MEASUREMENTS: Very mild aortic stenosis. No aortic regurgitation. Peak aortic valve velocity 337 cm/s Peak aortic valve gradient 22 mmHg Mean aortic valve gradient 13 mmHg Aortic valve VTI 51.8 cm LVOT velocity 79.6 cm/s LVOT VTI 17.2 cm Very mild mitral regurgitation. No mitral stenosis. Mitral E velocity 124 cm/s Mitral A velocity 117 cm/s Mitral deceleration time 195 msec Very mild tricuspid regurgitation. Estimated right ventricle systolic pressure 25-30 mmHg Estimated right atrial pressure 5-10 mmHg No pulmonic regurgitation. Pulmonary relaxation time 74 msec, suggestive of moderate elevation of pulmonary artery systolic pressure. MITRAL ANNULAR TISSUE DOPPLER: E prime septal 5.0 cm/s E prime lateral 13.2 cm/s DESCRIPTION: Rhythm was sinus with first-degree AV block. No pericardial effusion. Moderately technically difficult echocardiogram. This was a 2D, M-mode color flow Doppler, and pulse wave Doppler examination and included mitral annular tissue Doppler. CONCLUSIONS: 1. Normal left ventricle internal dimensions. Very mild concentric left ventricular hypertrophy. Normal regional LV wall motion and wall thickening. Normal LV systolic function. LVEF 60% by visual estimate. Grade 2 LV diastolic dysfunction (pseudonormal LV diastolic filling pattern). 2. Moderate aortic valve sclerosis of a 3-cuspid aortic valve. Very mild aortic stenosis. No aortic regurgitation. 3. Moderate left atrial dilatation by left atrial volume index. 4. Suggestive of moderate elevation of pulmonary artery systolic pressure. 5. Poor quality saline bubble study. No bubbles were seen entering the left atrium or left ventricle; however, I would consider this study to be unreliable to completely exclude intracardiac shunting, such as might be expected with ASD or PFO. 6. Moderately technically difficult echocardiogram.
[2021-01-28 22:00] VITALS: BP 139/60
[2021-01-29 06:00] VITALS: BP 127/63
--- NOTE | 2021-01-29 07:12 | CR ---
CONSULTATION DATE: 01/28/2021 REFERRING PHYSICIAN: FAHAD TERESA DO REASON FOR CONSULTATION: Strokes. HISTORY OF PRESENT ILLNESS: Ricardo Rasmussen is a 75-year-old man with a history of hypertension, diabetes, dyslipidemia, CABG who developed sudden onset expressive aphasia two days before hospital admission. He was having lunch with his and he could not express himself and had difficulty talking and word finding. He felt the right arm was weak and he felt slightly more imbalance when he tried walking. His symptoms lasted for 10-20 minutes and completely dissipated. He felt back to completely normal self within 1-2 hours. He called his muck miner, Dr. Pena, who advised him to come to the Emergency Department. His blood pressure upon arrival was 185/93. He denies any headaches, neck pain, back pain, falls, loss of consciousness, dysphagia, diplopia, or head injuries or seizures. Patient states that he has a bovine heart valve and he describes possibly cardiac ablation in the past or atrial fibrillation and says that he used to be on coumadin in the past. His telemetry monitoring at [facility] currently reveals sinus rhythm. MRI scan of the brain showed small multiple left frontal and parietal acute ischemic strokes. MRA of the brain was unremarkable. CTA of the neck showed moderate bilateral internal carotid artery stenosis. PAST MEDICAL HISTORY: Bovine heart failure, history of atrial fibrillation for which he was on coumadin in the past and had cardiac ablation, hypertension, diabetes mellitus, dyslipidemia, acid reflux, coronary artery bypass grafting, coronary artery disease, cholecystectomy, back surgery. ALLERGIES: Penicillin, Lisinopril. SOCIAL HISTORY: He is a former smoker. He denies smoking, alcohol or illicit drugs. FAMILY HISTORY: Unremarkable and noncontributory. REVIEW OF SYSTEMS: All systems were reviewed and were found to be noncontributory except as mentioned in the history of present illness. HOME MEDICATIONS: Aspirin 81 mg p.o. daily, Symbicort 160-4.5 mcg inhalation two puffs b.i.d., Zetia 10 mg p.o. daily, ferrous sulfate 325 mg p.o. daily, Flonase nasal spray, Gabapentin 300 mg p.o. b.i.d., Glipizide 10 mg p.o. b.i.d., insulin Levemir 50 units subcutaneous daily, Metformin 1000 mg p.o. b.i.d., omeprazole 20 mg p.o. daily, prednisone 1 mg three tablets p.o. daily, Viagra 100 mg p.o. daily p.r.n., Flomax 0.4 mg p.o. daily, torsemide 20 mg p.o. daily, Valsartan 40 mg p.o. daily, allopurinol 300 mg p.o. daily, ascorbic acid 500 mg p.o. daily, Albuterol inhaler, Refresh tears. PHYSICAL EXAMINATION: Temperature is 98.5, pulse is 69, respiratory rate is 18, blood pressure is 145/75, 94% saturation on room air. Heart: Regular rate and rhythm. Lungs are clear to auscultation. Abdomen is soft, nontender and nondistended. No pedal edema. No musculoskeletal abnormalities. No rash. No signs of meningeal irritation. Patient is awake, alert and oriented to person, place and time. Normal speech, comprehension, and repetition. Extraocular muscles are intact. No facial weakness. Tongue and uvula are midline. There is 5/5 strength in all four extremities. Deep tendon reflexes are 2+ throughout. Normal sensation throughout in arms and upper legs. He has decreased cold, pinprick, and vibration sensation in his feet. His gait is normal. ASSESSMENT: 1. Small multiple left frontal and parietal acute ischemic strokes. 2. Suspicion for embolic strokes with possible cardiac origin. 3. Moderate bilateral internal carotid artery stenosis. 4. Bovine or PEG hardware and history of atrial fibrillation in the past for which he was on coumadin and describes a procedure which sounds like cardiac ablation for atrial fibrillation but all this needs to be confirmed with his muck miner. PLAN: 1. Aspirin 81 mg p.o. daily. 2. Plavix 75 mg p.o. daily for now. 3. We should contact his muck miner and discuss if we should start him on Eliquis 5 mg p.o. b.i.d. due to extensive cardiac history as described above. His current stroke is highly likely embolic stroke. 4. Continue Zetia 10 mg p.o. daily. 5. Keep blood pressure below 130/80 for long-term management after permissive hypertension in the hospital. 6. Follow with our office in two weeks after hospital discharge. He should follow with his muck miner closely. He should continue using his CPAP for obstructive sleep apnea.
[2021-01-29] MEDS: SYMBICORT 160/4.5MCG INHALER 6GM INH SCH (07:37)
[2021-01-29] MEDS: predniSONE 1 MG TAB PO SCH (08:46)
[2021-01-29] MEDS: CLOPIDOGREL 75 MG TAB PO SCH (08:46)
[2021-01-29] MEDS: ASPIRIN 81MG ENTERIC TABLET PO SCH (08:46)
[2021-01-29] MEDS: LORATADINE 10 MG TAB PO SCH (08:46)
[2021-01-29 08:47] VITALS: BP 141/75
[2021-01-29] MEDS: VALSARTAN 80 MG TAB (DIOVAN) PO SCH (08:47)
[2021-01-29] MEDS: TAMSULOSIN 0.4 MG CAP PO SCH (08:47)
[2021-01-29] MEDS: TORSEMIDE 20 MG TAB PO SCH (08:47)
[2021-01-29] MEDS: OMEPRAZOLE 20 MG CAP PO SCH (08:48)
[2021-01-29] MEDS: ASCORBIC ACID 500 MG TAB PO SCH (08:48)
[2021-01-29] MEDS: FERROUS GLUCONATE 324 MG TAB PO SCH (08:48)
[2021-01-29] MEDS: allopurinoL 300 MG TAB PO SCH (08:48)
[2021-01-29] MEDS: GABAPENTIN 300 MG CAP PO SCH (08:48)
[2021-01-29] MEDS: POLYVINYL ALCOHOL OPHTH SOLN 15 ML(LIQUITEARS) OU SCH (08:48)
[2021-01-29] MEDS: LEVEMIR (INSULIN DETEMIR) 1 UNITS/0.01ML SC SCH (08:48)
[2021-01-29] MEDS: HumaLOG INSULIN (NovoLOG) PER UNIT SC SCH ×2 (08:53→11:42)
[2021-01-29] MEDS: EZETIMIBE 10MG TABLET (ZETIA) PO SCH (09:04)
[2021-01-29] MEDS: HEPARIN SOD (PORCINE) 5000UNITS/ML 1ML VIAL/SYRINGE SC SCH (09:04)
[2021-01-29] MEDS ORDERED: ELIQ5TAB PO (10:46)
--- NOTE | 2021-01-29 16:36 | DS.PDOC ---
Discharge Summary General Date of Admission Jan 27, 2021 at 11:47 Date of Discharge 01/29/21 Discharge Summary PROCEDURES PERFORMED DURING STAY: [None]. ADMITTING DIAGNOSES: CVA Hyperlipidemia Coronary artery disease Type 2 diabetes mellitus Hypertension DISCHARGE DIAGNOSES: CVA Hyperlipidemia Coronary artery disease Type 2 diabetes mellitus Hypertension COMPLICATIONS/CHIEF COMPLAINT: TIA. HISTORY OF PRESENT ILLNESS: Patient is 75 years old male with past medical history of hypertension, type 2 diabetes, hyperlipidemia, GERD, CABG presented to hospital with history of expressive aphasia. Patient stated that 2 days ago during lunch with his he could not express himself and had difficulties to talk. Patient stated after 25 minutes his symptoms resolved. He did not go to ER or primary care physician. Today he called the facilities engineer office and Dr. Pena recommended him to come to the emergency. Patient denied any focal deficiency. In ER patient was found to have elevated blood pressure of 185/93, no leukocytosis, glucose level of 230, EKG shows normal sinus rhythm without acute ischemic changes. CT head negative for stroke or acute bleeding. HOSPITAL COURSE: During the hospital stay the following issue addressed (1) CVA Patient has multiple risk factors for stroke including obesity, hypertension, hyperlipidemia, coronary artery disease differential diagnosis includes TIA, stroke, hypertensive urgency CT head negative. There is concern for paroxysmal atrial fibrillation. Most likely patient will need a Holter after discharge Brain MRI showed multiple acute small vessel nonhemorrhagic infarcts, left posterior frontal and parietal vertex suggesting a possible embolic process. No mass effect I discussed the case with Dr. Pena and Dr. ATKINS, because of previous GI bleed, recommendation is to start Eliquis 5 mg twice daily and not to continue aspirin and Plavix Echo see result below Telemetry (2) Hyperlipidemia Continue statin (3) Coronary artery disease No any acute changes on the EKG Patient denies any chest pain (4) Type 2 diabetes mellitus Glucose level under control Patient received detemir, Insulin sliding scale Diabetes diet (5) Hypertension Continue home meds DISCHARGE MEDICATIONS: Please see below. ALLERGIES: Please see below. PHYSICAL EXAMINATION ON DISCHARGE: VITAL SIGNS: Please see below. GENERAL APPEARANCE: Obese male HEENT: no scleral icterus, no JVD, EOMI CARDIOVASCULAR: S1S2 LUNGS: Diminished lung sounds bilaterally ABDOMEN: soft & not tender w palpation MUSCULOSKELETAL: no cyanosis, no swelling INTEGUMENT: no generalized pallor NEUROLOGICAL: cranial nerve function from 2-12 intact, follows commands, speech not dysarthric LABORATORY DATA: Please see below. IMAGING:DATE OF PROCEDURE: 01/27/2021 Age: Gender: Height: 173 cm Weight: 119 kg REFERRING PHYSICIAN: Dr. Miguelangel Teresa INDICATION: Transient cerebral ischemia, unspecified. 2D MEASUREMENTS: Left ventricle diastole 5.2 cm Left ventricle systole 3.6 cm Ventricular septum 1.20 cm Posterior wall 1.26 cm Aortic root 3.7 cm Left atrium 5.3 cm Left atrial volume index 35 DOPPLER MEASUREMENTS: Very mild aortic stenosis. No aortic regurgitation. Peak aortic valve velocity 337 cm/s Peak aortic valve gradient 22 mmHg Mean aortic valve gradient 13 mmHg Aortic valve VTI 51.8 cm LVOT velocity 79.6 cm/s LVOT VTI 17.2 cm Very mild mitral regurgitation. No mitral stenosis. Mitral E velocity 124 cm/s Mitral A velocity 117 cm/s Mitral deceleration time 195 msec Very mild tricuspid regurgitation. Estimated right ventricle systolic pressure 25-30 mmHg Estimated right atrial pressure 5-10 mmHg No pulmonic regurgitation. Pulmonary relaxation time 74 msec, suggestive of moderate elevation of pulmonary artery systolic pressure. MITRAL ANNULAR TISSUE DOPPLER: E prime septal 5.0 cm/s E prime lateral 13.2 cm/s DESCRIPTION: Rhythm was sinus with first-degree AV block. No pericardial effusion. Moderately technically difficult echocardiogram. This was a 2D, M-mode color flow Doppler, and pulse wave Doppler examination and included mitral annular tissue Doppler. CONCLUSIONS: 1. Normal left ventricle internal dimensions. Very mild concentric left ventricular hypertrophy. Normal regional LV wall motion and wall thickening. Normal LV systolic function. LVEF 60% by visual estimate. Grade 2 LV diastolic dysfunction (pseudonormal LV diastolic filling pattern). 2. Moderate aortic valve sclerosis of a 3-cuspid aortic valve. Very mild aortic stenosis. No aortic regurgitation. 3. Moderate left atrial dilatation by left atrial volume index. 4. Suggestive of moderate elevation of pulmonary artery systolic pressure. 5. Poor quality saline bubble study. No bubbles were seen entering the left atrium or left ventricle; however, I would consider this study to be unreliable to completely exclude intracardiac shunting, such as might be expected with ASD or PFO. 6. Moderately technically difficult echocardiogram. DD: Porfirio Garcia MD [facility] 01/28/211830 DT: JOSE 01/28/211920 COMPARISON: None available TECHNIQUE: 2 mm axial images were obtained following the infusion iodinated contrast. Sagittal and coronal reconstructions were also obtained from the original data set. FINDINGS: Asymmetric right apical pleural thickening is noted with a possible parenchymal density associated with this. If clinically indicated, a dedicated unenhanced CT the chest may be of value. Scattered plaque is seen in each common carotid artery without significant stenosis. Moderate plaque is present at both carotid bifurcations but no significant stenosis is identified at the bifurcations. Both internal carotid arteries are patent all the way through the carotid canals. Both vertebral arteries are patent though the left is dominant as a normal variant. IMPRESSION: No significant stenosis of the common carotid or internal carotid arteries on either side is identified. Moderate irregular plaque is noted at the carotid bifurcations bilaterally which may represent a source for TIA's. PROGNOSIS: Fair ACTIVITY: [As tolerated]. DIET: Cardiac DISCHARGE PLAN: Patient will have appointment today in facilities engineer office to picked edge sewing machine operator Holter monitor DISPOSITION: 01 Home, Self-Care. DISCHARGE INSTRUCTIONS: Follow-up with facilities engineer and neurologist DISCHARGE CONDITION: [Stable]. TIME SPENT ON DISCHARGE: 40 minutes. Vital Signs/I&Os Vital Signs Date Time Temp Pulse Resp B/P (MAP) Pulse Ox O2 Delivery O2 Flow Rate FiO2 01/29/21 08:47 141/75 01/29/21 06:00 98.1 64 18 99 Room Air I&O- Last 24 Hours up to 6 AM 01/29/21 06:00 Intake Total 1200 ml Output Total 2875 ml Balance -1675 ml Laboratory Data Labs 24H Laboratory Tests 2 01/28/21 16:41: Bedside Glucose (Misc Panel) 216H 01/28/21 19:57: Bedside Glucose (Misc Panel) 233H 01/29/21 05:19: Bedside Glucose (Misc Panel) 131H 01/29/21 11:38: Bedside Glucose (Misc Panel) 229H FSBS Laboratory Tests Test 01/28/21 16:41 01/28/21 19:57 01/29/21 05:19 01/29/21 11:38 Range/Units Bedside Glucose (Misc Panel) 216 233 131 229 83-110 MG/DL Discharge Medications Scheduled Apixaban (Eliquis) 5 Mg Tablet, 1 TAB PO BID Ascorbic Acid (Ascorbic Acid) 500 Mg Tablet, 500 MG PO DAILY, (Reported) Budesonide/Formoterol (Symbicort 160-4.5 Mcg Inhaler) 6 Gm Hfa.aer.ad, 2 PUFF INH BID, (Reported) Calcium Carb,Gluc/Mag Ox,Gluc (Calcium Magnesium Caplet) 1 Each Tablet, 1 TAB PO DAILY, (Reported) Ezetimibe (Ezetimibe) 10 Mg Tablet, 10 MG PO DAILY, (Reported) Ferrous Gluconate (Ferrous Gluconate) 324 Mg Tablet, 324 MG PO DAILY, (Reported) Fluticasone Propionate (Flonase Allergy Relief) 9.9 Ml [place].susp, 2 SPRAY NARES QHS, (Reported) Gabapentin (Gabapentin) 600 Mg Tablet, 300 MG PO BID, (Reported) MORNING AND DINNER Gabapentin (Gabapentin) 600 Mg Tablet, 600 MG PO QHS, (Reported) Glipizide (Glipizide) 10 Mg Tablet, 10 MG PO BID, (Reported) Insulin Detemir (Levemir Flextouch) 100 Unit/1 Ml Insuln.pen, 60 UNIT SC QHS, (Reported) Loratadine (Claritin) 10 Mg Capsule, 10 MG PO DAILY, (Reported) Metformin HCl (Metformin HCl) 1,000 Mg Tablet, 1,000 MG PO BID, (Reported) Omeprazole (Omeprazole) 20 Mg Tablet.dr, 20 MG PO DAILY, (Reported) Prednisone (Prednisone) 1 Mg Tablet, 3 MG PO DAILY, (Reported) Tamsulosin HCl (Flomax) 0.4 Mg Capsule, 0.4 MG PO DAILY, (Reported) Torsemide (Torsemide) 20 Mg Tablet, 20 MG PO DAILY, (Reported) Valsartan (Valsartan) 80 Mg Tablet, 80 MG PO DAILY, (Reported) Vitamin B Complex (Vitamin B Complex) 1 Each Tablet, 1 TAB PO DAILY, (Reported) Zinc (Zinc) 50 Mg Tablet, 50 MG PO DAILY, (Reported) allopurinoL (allopurinoL) 300 Mg Tablet, 300 MG PO DAILY, (Reported) Scheduled PRN Acetaminophen (Mapap) 325 Mg Tablet, 650 MG PO Q6H PRN for PAIN LEVEL 1-5, (Reported) Albuterol Sulfate (Proair Hfa) 8.5 Gm Hfa.aer.ad, 2 PUFF INH Q6H PRN for DYSPNEA, (Reported) Carboxymethylcellulose Sodium (Refresh Tears) 15 Ml Drops, 1 DROP OU QID PRN for DRY EYES, (Reported) Docusate Sodium (Stool Softener) 100 Mg Capsule, 100 MG PO BID PRN for CONSTIPATION, (Reported) Nicotine Polacrilex (Nicotine Gum) 4 Mg Gum, 4 MG MT PRN PRN for NICOTINE WITHDRAWAL, (Reported) Sildenafil Citrate (Sildenafil Citrate) 100 Mg Tablet, 100 MG PO DAILY PRN for ERECTILE DYSFUNCTION, (Reported) Allergies Coded Allergies: Penicillins (Verified Allergy, Intermediate, Unknown, 01/27/21) lisinopril (Verified Allergy, Intermediate, swelling, 01/27/21) MIGUELANGEL TERESA DO Jan 29, 2021 16:36
== END 2021-01-29 13:23 | disposition home or self-care (01) | DRG 66 ==
LOC: M ED 09:12 → M ED INP 11:47 → ENRESERV 15:00 → M MSPAV 15:23
PROVIDERS: ADMIT Internal Medicine; ATTEND Internal Medicine
DX: I63.59 Cerebral infarction due to unspecified occlusion or stenosis of other cerebral artery (principal); R47.01 Aphasia; E78.5 Hyperlipidemia, unspecified; I25.10 Atherosclerotic heart disease of native coronary artery without angina pectoris; E11.9 Type 2 diabetes mellitus without complications; I10 Essential (primary) hypertension; K21.9 Gastro-esophageal reflux disease without esophagitis; E66.9 Obesity, unspecified; I65.23 Occlusion and stenosis of bilateral carotid arteries; Z90.49 Acquired absence of other specified parts of digestive tract; Z87.891 Personal history of nicotine dependence; Z88.0 Allergy status to penicillin; Z88.8 Allergy status to other drugs, medicaments and biological substances; Z79.82 Long term (current) use of aspirin; Z79.4 Long term (current) use of insulin; Z95.1 Presence of aortocoronary bypass graft; Z79.899 Other long term (current) drug therapy; Z68.39 Body mass index [BMI] 39.0-39.9, adult

== ENCOUNTER → 2021-02-15 | Outpatient (CLI) | payer OTHER ==
[~2021-02-15] MED LIST changes: +ALLO300T2 PO; -AMIO200T3 PO; +AMIO200T49 PO; +ASCO500T PO; +ASPI-161 PO; +CALC500T52 PO; +CLAR10CA3 PO; +ELIQ5TAB PO; +EQL50TAB2 PO; +EZET10TA21 PO; +FERR324T21 PO; +FERR325T3 PO; +FLOM0.4C39 PO; +GABA600T4 PO; +LEVE1INJ5 SC; +MM S100C PO; +NICO4GUM MT; +OMEP-341 PO; +PRED1TABL PO; +TORS20TA2 PO; +VALS1TAB66 PO; +ZINC1TAB2 PO
== END ==
LOC: M RAD 16:09
PROVIDERS: ATTEND Family Medicine
DX: G45.9 Transient cerebral ischemic attack, unspecified (principal)

== ENCOUNTER → 2021-02-23 | Outpatient (CLI) | payer OTHER ==
[~2021-02-23] MED LIST changes: +AMIO200T3 PO; -AMIO200T49 PO
[2021-02-23 12:12] LABS: BASO # 0.1 10^3/uL (0.0-0.2); BASO % 0.9 % (0.0-1.0); EOS # 0.1 10^3/uL (0.0-0.5); EOS % 1.3 % (0.0-3.0); HEMATOCRIT 47.8 % (42.0-52.0); HEMOGLOBIN 16.1 g/dl (13.5-17.5); LYMPH # 1.3 10^3/uL (1.5-5.0); LYMPH % 14.4 % (24.0-44.0); MEAN CORPUSCULAR HEMOGLOBIN 31.6 pg (27.0-33.0); MEAN CORPUSCULAR HGB CONC 33.7 g/dl (32.0-36.5); MEAN CORPUSCULAR VOLUME 93.7 fl (80.0-96.0); MONO # 0.8 10^3/uL (0.0-0.8); MONO % 8.2 % (2.0-8.0); NEUTROPHILS # 6.7 10^3/uL (1.5-8.5); NEUTROPHILS % 73.9 % (36.0-66.0); PLATELET COUNT, AUTOMATED 125 10^3/uL (150-450); WHITE BLOOD COUNT 9.1 10^3/uL (4.0-10.0)
[2021-02-23 12:39] LABS: ALBUMIN 3.9 GM/DL (3.2-5.2); ALT/SGPT 35 U/L (12-78); BILIRUBIN,TOTAL 0.6 MG/DL (0.2-1.0); BLOOD UREA NITROGEN 20 MG/DL (7-18); CALCIUM LEVEL 9.1 MG/DL (8.8-10.2); CARBON DIOXIDE LEVEL 31 MEQ/L (21-32); CHLORIDE LEVEL 104 MEQ/L (98-107); CREATININE FOR GFR 1.19 MG/DL (0.70-1.30); GLOMERULAR FILTRATION RATE > 60.0 (>42); GLUCOSE, FASTING 202 MG/DL (70-100); NT-PRO BNP 140 PG/ML (<450); POTASSIUM SERUM 4.2 MEQ/L (3.5-5.1); SODIUM LEVEL 140 MEQ/L (136-145); TOTAL PROTEIN 7.3 GM/DL (6.4-8.2)
== END ==
LOC: M LAB 11:02
PROVIDERS: ATTEND Internal Medicine Cardiovascular Disease
DX: I50.32 Chronic diastolic (congestive) heart failure (principal); I35.1 Nonrheumatic aortic (valve) insufficiency; I11.0 Hypertensive heart disease with heart failure

== ENCOUNTER → 2021-02-26 | Outpatient (CLI) | payer OTHER ==
[2021-02-26 15:04] LABS: BASO # 0.1 10^3/uL (0.0-0.2); EOS # 0.2 10^3/uL (0.0-0.5); EOS % 1.8 % (0.0-3.0); HEMATOCRIT 47.3 % (42.0-52.0); HEMOGLOBIN 16.1 g/dl (13.5-17.5); LYMPH # 1.8 10^3/uL (1.5-5.0); LYMPH % 22.2 % (24.0-44.0); MEAN CORPUSCULAR HEMOGLOBIN 31.9 pg (27.0-33.0); MEAN CORPUSCULAR VOLUME 93.7 fl (80.0-96.0); MONO # 0.7 10^3/uL (0.0-0.8); MONO % 7.9 % (2.0-8.0); NEUTROPHILS # 5.4 10^3/uL (1.5-8.5); NEUTROPHILS % 65.5 % (36.0-66.0); PLATELET COUNT, AUTOMATED 135 10^3/uL (150-450); RED BLOOD COUNT 5.05 10^6/uL (4.30-6.10); WHITE BLOOD COUNT 8.3 10^3/uL (4.0-10.0)
[2021-02-26 15:39] LABS: ERYTHROCYTE SEDIMENTATION RATE 17 mm/hr (0-20)
== END ==
LOC: M LAB 14:06
PROVIDERS: ATTEND Internal Medicine Cardiovascular Disease
DX: I63.411 Cerebral infarction due to embolism of right middle cerebral artery (principal); I35.1 Nonrheumatic aortic (valve) insufficiency

== ENCOUNTER → 2021-02-27 | Outpatient (CLI) | payer OTHER | LOC: M LAB 14:34 | PROVIDERS: ATTEND Internal Medicine Cardiovascular Disease | DX: I63.411 Cerebral infarction due to embolism of right middle cerebral artery (principal) ==

== ENCOUNTER 2021-03-01 15:28 | Day surgery (SDC) | payer OTHER ==
[~2021-03-01] VITALS: Ht 172.7 cm; Wt 114.3 kg
[~2021-03-01 15:28] MED LIST changes: -AMIO200T3 PO; +AMIO200T49 PO
[2021-03-01] MEDS ORDERED: propofoL 200 MG/20 ML VIAL As Ordered ONE (15:57)
[2021-03-01] MEDS ORDERED: LIDOCAINE 2% 100MG/5ML SDV (FOR ANES.) As Ordered ONE (15:57)
[2021-03-01] MEDS ORDERED: CETACAINE SPRAY 5GM As Ordered ONE (16:35)
[2021-03-01 18:50] VITALS: BP 158/65
== END 2021-03-01 18:57 | disposition home or self-care (01) ==
LOC: M SDC 15:28
PROVIDERS: ATTEND Internal Medicine Cardiovascular Disease
DX: I70.0 Atherosclerosis of aorta (principal); I63.411 Cerebral infarction due to embolism of right middle cerebral artery; I44.0 Atrioventricular block, first degree; I50.32 Chronic diastolic (congestive) heart failure; I47.9 Paroxysmal tachycardia, unspecified; R94.31 Abnormal electrocardiogram [ECG] [EKG]; I25.10 Atherosclerotic heart disease of native coronary artery without angina pectoris; I11.0 Hypertensive heart disease with heart failure; I35.1 Nonrheumatic aortic (valve) insufficiency; I27.81 Cor pulmonale (chronic); E11.9 Type 2 diabetes mellitus without complications; E78.00 Pure hypercholesterolemia, unspecified; Z95.5 Presence of coronary angioplasty implant and graft; Z95.2 Presence of prosthetic heart valve; K21.9 Gastro-esophageal reflux disease without esophagitis; E66.9 Obesity, unspecified; M54.9 Dorsalgia, unspecified; G47.33 Obstructive sleep apnea (adult) (pediatric); Z87.891 Personal history of nicotine dependence; Z88.8 Allergy status to other drugs, medicaments and biological substances; Z88.1 Allergy status to other antibiotic agents; Z88.3 Allergy status to other anti-infective agents; Z79.899 Other long term (current) drug therapy; Z79.01 Long term (current) use of anticoagulants; Z79.51 Long term (current) use of inhaled steroids; Z79.4 Long term (current) use of insulin; Z79.84 Long term (current) use of oral hypoglycemic drugs
CPT/HCPCS: 93312; 93320; 93325; U0002

== ENCOUNTER → 2021-05-31 | Outpatient (CLI) | payer OTHER ==
[2021-05-31 11:39] LABS: BASO # 0.1 10^3/uL (0.0-0.2); EOS # 0.1 10^3/uL (0.0-0.5); EOS % 1.7 % (0.0-3.0); HEMATOCRIT 48.5 % (42.0-52.0); HEMOGLOBIN 16.5 g/dl (13.5-17.5); LYMPH # 1.2 10^3/uL (1.5-5.0); LYMPH % 14.8 % (24.0-44.0); MEAN CORPUSCULAR HEMOGLOBIN 31.5 pg (27.0-33.0); MEAN CORPUSCULAR VOLUME 92.7 fl (80.0-96.0); MONO # 0.7 10^3/uL (0.0-0.8); MONO % 7.9 % (2.0-8.0); NEUTROPHILS # 6.1 10^3/uL (1.5-8.5); NEUTROPHILS % 73.3 % (36.0-66.0); PLATELET COUNT, AUTOMATED 141 10^3/uL (150-450); RED BLOOD COUNT 5.23 10^6/uL (4.30-6.10); WHITE BLOOD COUNT 8.3 10^3/uL (4.0-10.0)
[2021-05-31 12:09] LABS: ALBUMIN 4.1 GM/DL (3.2-5.2); BILIRUBIN,TOTAL 0.5 MG/DL (0.2-1.0); CALCIUM LEVEL 9.1 MG/DL (8.8-10.2); CREATININE FOR GFR 1.25 MG/DL (0.70-1.30); GLOMERULAR FILTRATION RATE 59.8 (>42); POTASSIUM SERUM 4.3 MEQ/L (3.5-5.1); TOTAL PROTEIN 7.1 GM/DL (6.4-8.2)
== END ==
LOC: M LAB 11:00
PROVIDERS: ATTEND Internal Medicine Cardiovascular Disease
DX: I63.411 Cerebral infarction due to embolism of right middle cerebral artery (principal); I50.32 Chronic diastolic (congestive) heart failure; I35.1 Nonrheumatic aortic (valve) insufficiency

== ENCOUNTER → 2021-07-03 | Outpatient (REF) | payer MEDICARE | LOC: M WUC 18:18 | PROVIDERS: ATTEND Internal Medicine | DX: R30.0 Dysuria (principal) ==

== ENCOUNTER → 2022-01-06 | Outpatient (CLI) | payer OTHER | LOC: M RAD 07:45 | PROVIDERS: ATTEND Registered Nurse | DX: K76.0 Fatty (change of) liver, not elsewhere classified (principal); N28.1 Cyst of kidney, acquired; R16.1 Splenomegaly, not elsewhere classified; D69.6 Thrombocytopenia, unspecified; Z90.49 Acquired absence of other specified parts of digestive tract ==

== ENCOUNTER → 2022-05-12 | Outpatient (CLI) | payer MEDICARE, OTHER | LOC: M RAD 09:08 | PROVIDERS: ATTEND Nurse Practitioner Family | DX: I71.40 Abdominal aortic aneurysm, without rupture, unspecified (principal) ==

== ENCOUNTER → 2023-04-24 | Outpatient (REF) | payer MEDICARE ==
[~2023-04-24] MED LIST changes: +INSU100I6 SC; -LEVE1INJ5 SC
== END ==
LOC: M LAB REF 12:13
PROVIDERS: ATTEND Student in an Organized Health Care Education/Training Program
DX: R30.0 Dysuria (principal)

== ENCOUNTER → 2023-05-15 | Outpatient (CLI) | payer MEDICARE ==
[~2023-05-15] MED LIST changes: -ASPI-161 PO; +ASPI-615 PO; -OMEP-341 PO; +OMEP20TA3 PO
== END ==
LOC: M EKG 09:59
PROVIDERS: ATTEND Physician Assistant
DX: I48.3 Typical atrial flutter (principal); I45.10 Unspecified right bundle-branch block

== ENCOUNTER → 2023-12-11 | Outpatient (CLI) | payer MEDICARE ==
[~2023-12-11] MED LIST changes: +GABA-1490 PO; -GABA600T4 PO
[2023-12-11 17:40] LABS: HEMATOCRIT 43.4 % (42.0-52.0); HEMOGLOBIN 14.5 g/dl (13.5-17.5); MEAN CORPUSCULAR HEMOGLOBIN 31.9 pg (27.0-33.0); MEAN CORPUSCULAR HGB CONC 33.4 g/dl (32.0-36.5); MEAN CORPUSCULAR VOLUME 95.6 fl (80.0-96.0); PLATELET COUNT, AUTOMATED 150 10^3/uL (150-450); RED BLOOD COUNT 4.54 10^6/uL (4.30-6.10); WHITE BLOOD COUNT 8.6 10^3/uL (4.0-10.0)
[2023-12-11 17:57] LABS: BLOOD UREA NITROGEN 22 MG/DL (9-23); CALCIUM LEVEL 8.8 MG/DL (8.3-10.6); CARBON DIOXIDE LEVEL 32 MMOL/L (20-31); CHLORIDE LEVEL 105 MMOL/L (98-107); CREATININE FOR GFR 1.08 MG/DL (0.70-1.30); GLOMERULAR FILTRATION RATE > 60.0 (>42); GLUCOSE, FASTING 145 MG/DL (74-106); POTASSIUM SERUM 4.3 MMOL/L (3.5-5.1); SODIUM LEVEL 143 MMOL/L (136-145)
== END ==
LOC: M LAB 16:05
PROVIDERS: ATTEND Physician Assistant
DX: I25.118 Atherosclerotic heart disease of native coronary artery with other forms of angina pectoris (principal); I50.32 Chronic diastolic (congestive) heart failure

== ENCOUNTER 2023-12-16 12:45 | Inpatient (IN) | payer MEDICARE, OTHER ==
[~2023-12-16] VITALS: Ht 172.7 cm; Wt 108.2 kg
[~2023-12-16 12:45] MED LIST changes: -NICO4GUM MT; +NICO4GUM PO
[2023-12-16] MEDS ORDERED: NITROGLYCERIN 0.4MG SUBL TABLET SL PRN (13:40)
[2023-12-16] MEDS ORDERED: ISOVUE-370 76% 100ML VIAL As Ordered ONE (13:50)
[2023-12-16 14:38] LABS: BASO % 0.5 % (0.0-1.0); EOS # 0.2 10^3/uL (0.0-0.5); EOS % 2.4 % (0.0-3.0); HEMATOCRIT 44.8 % (42.0-52.0); HEMOGLOBIN 14.9 g/dl (13.5-17.5); LYMPH # 1.5 10^3/uL (1.5-5.0); LYMPH % 17.7 % (24.0-44.0); MEAN CORPUSCULAR HEMOGLOBIN 31.9 pg (27.0-33.0); MEAN CORPUSCULAR HGB CONC 33.3 g/dl (32.0-36.5); MEAN CORPUSCULAR VOLUME 95.9 fl (80.0-96.0); MONO # 0.6 10^3/uL (0.0-0.8); NEUTROPHILS # 5.8 10^3/uL (1.5-8.5); NEUTROPHILS % 71.3 % (36.0-66.0); PLATELET COUNT, AUTOMATED 147 10^3/uL (150-450); RED BLOOD COUNT 4.67 10^6/uL (4.30-6.10); WHITE BLOOD COUNT 8.2 10^3/uL (4.0-10.0)
[2023-12-16 15:07] LABS: LIPASE 49 U/L (12-53)
[2023-12-16 15:09] LABS: ALBUMIN 3.8 G/DL (3.2-5.2); ALKALINE PHOSPHATASE 121 U/L (46-116); ALT/SGPT 21 U/L (7.0-40); AST/SGOT 13 U/L (<34); BILIRUBIN,DIRECT 0.2 MG/DL (<0.4); BILIRUBIN,TOTAL 0.6 MG/DL (0.3-1.2); BLOOD UREA NITROGEN 23 MG/DL (9-23); CALCIUM LEVEL 9.5 MG/DL (8.3-10.6); CARBON DIOXIDE LEVEL 30 MMOL/L (20-31); CHLORIDE LEVEL 105 MMOL/L (98-107); CK-MB VALUE MASS 2.2 NG/ML (<3.6); CPK CREATINE PHOSPHOKINASE 198 U/L (46-171); CREATININE FOR GFR 1.16 MG/DL (0.70-1.30); GLOMERULAR FILTRATION RATE > 60.0 (>42); GLUCOSE, FASTING 129 MG/DL (74-106); MB/CK RELATIVE INDEX 1.11 (< OR =4); POTASSIUM SERUM 4.2 MMOL/L (3.5-5.1); SODIUM LEVEL 142 MMOL/L (136-145); TOTAL PROTEIN 6.8 G/DL (5.7-8.2)
[2023-12-16 15:10] LABS: THYROID STIMULATING HORMONE 1.393 uIU/ML (0.55-4.78)
[2023-12-16 15:11] LABS: FREE T4 1.17 NG/DL (0.89-1.76)
[2023-12-16] MEDS: ASPIRIN 81MG CHEW TABLET PO ONE (15:29)
[2023-12-16 16:11] LABS: CK-MB VALUE MASS 2.4 NG/ML (<3.6)
[2023-12-16 16:19] LABS: MB/CK RELATIVE INDEX 1.43 (< OR =4)
[2023-12-16] MEDS ORDERED: SILD100T PO (18:30)
[2023-12-16] MEDS ORDERED: VENTAER INH (18:30)
[2023-12-16] MEDS ORDERED: ELIQ5TAB PO (18:30)
[2023-12-16] MEDS ORDERED: HOME MED LIST COMPLETE! XX SCH (18:35)
[2023-12-16] MEDS ORDERED: DEXTROSE 50% 50ML SYRINGE IV PRN (19:25)
[2023-12-16] MEDS ORDERED: GLUCOSE 4 GM CHEW PO PRN (19:25)
[2023-12-16] MEDS ORDERED: GLUCAGON INJ 1MG VIAL SC PRN (19:25)
[2023-12-16] MEDS: ALBUTEROL 90 MCG/ACT 8GM HFA INHALER INH SCH (20:11)
[2023-12-16] MEDS: GABAPENTIN 300 MG CAP PO SCH (20:25)
[2023-12-16] MEDS: DOCUSATE SODIUM 100MG CAPSULE PO SCH (20:26)
[2023-12-16] MEDS: APIXABAN 5 MG TAB (ELIQUIS) PO SCH (20:26)
[2023-12-16] MEDS: **hydrALAZINE HCL** 25 MG TAB PO SCH (20:27)
[2023-12-16] MEDS ORDERED: ATORVASTATIN 20 MG TAB PO SCH (21:00)
[2023-12-16] MEDS: INSULIN LISPRO (NovoLOG) PER UNIT SC SCH (21:06)
[2023-12-16 23:39] VITALS: BP 154/74; TEMP 97.7; O2SAT 92
[2023-12-17 04:24] VITALS: BP 118/65; TEMP 98.8; O2SAT 96
[2023-12-17 06:04] LABS: BASO # 0.1 10^3/uL (0.0-0.2); BASO % 0.6 % (0.0-1.0); EOS # 0.2 10^3/uL (0.0-0.5); EOS % 2.8 % (0.0-3.0); HEMATOCRIT 43.4 % (42.0-52.0); HEMOGLOBIN 14.4 g/dl (13.5-17.5); LYMPH # 1.6 10^3/uL (1.5-5.0); LYMPH % 19.1 % (24.0-44.0); MEAN CORPUSCULAR HEMOGLOBIN 31.6 pg (27.0-33.0); MEAN CORPUSCULAR HGB CONC 33.2 g/dl (32.0-36.5); MEAN CORPUSCULAR VOLUME 95.4 fl (80.0-96.0); MONO # 0.6 10^3/uL (0.0-0.8); MONO % 7.6 % (2.0-8.0); NEUTROPHILS # 5.7 10^3/uL (1.5-8.5); NEUTROPHILS % 68.7 % (36.0-66.0); PLATELET COUNT, AUTOMATED 145 10^3/uL (150-450); RED BLOOD COUNT 4.55 10^6/uL (4.30-6.10); WHITE BLOOD COUNT 8.3 10^3/uL (4.0-10.0)
[2023-12-17 06:16] LABS: BLOOD UREA NITROGEN 22 MG/DL (9-23); CALCIUM LEVEL 8.8 MG/DL (8.3-10.6); CARBON DIOXIDE LEVEL 30 MMOL/L (20-31); CHLORIDE LEVEL 108 MMOL/L (98-107); GLOMERULAR FILTRATION RATE > 60.0 (>42); GLUCOSE, FASTING 113 MG/DL (74-106); POTASSIUM SERUM 3.9 MMOL/L (3.5-5.1); SODIUM LEVEL 144 MMOL/L (136-145)
[2023-12-17 06:45] LABS: HEMOGLOBIN A1c 6.1 % (4.0-6.0)
[2023-12-17 08:29] LABS: CHOLESTEROL RISK RATIO 4.47 (<5); HDL CHOLESTEROL 33.1 MG/DL (>40); LDL CHOLESTEROL 95.3 MG/DL (<100); NON-HDL-C 114.9 MG/DL
[2023-12-17] MEDS: predniSONE 1 MG TAB PO SCH (08:46)
[2023-12-17] MEDS: INSULIN LISPRO (NovoLOG) PER UNIT SC SCH (08:46)
[2023-12-17] MEDS: OMEPRAZOLE 20MG CAP PO SCH (08:46)
[2023-12-17 08:47] VITALS: BP 131/76
[2023-12-17] MEDS: EZETIMIBE 10MG TABLET (ZETIA) PO SCH (08:47)
[2023-12-17] MEDS: GABAPENTIN 300 MG CAP PO SCH (08:47)
[2023-12-17] MEDS: allopurinoL 300 MG TAB PO SCH (08:47)
[2023-12-17] MEDS: VALSARTAN 80 MG TAB (DIOVAN) PO SCH (08:47)
[2023-12-17 08:48] LABS: CK-MB VALUE MASS 1.3 NG/ML (<3.6)
[2023-12-17] MEDS: ASPIRIN 81MG ENTERIC TABLET PO SCH (08:48)
[2023-12-17 08:49] LABS: CPK CREATINE PHOSPHOKINASE 155 U/L (46-171); MB/CK RELATIVE INDEX 0.83 (< OR =4)
[2023-12-17 11:09] VITALS: BP_SYST 136; BP_SYST 138; BP_DIAS 70; BP_DIAS 71; BP_DIAS 73
[2023-12-17] MEDS ORDERED: TORS20TA2 PO (11:10)
[2023-12-17] MEDS ORDERED: MECL-136 PO (11:43)
[2023-12-17] MEDS ORDERED: TAMSULOSIN 0.4 MG CAP PO SCH (12:00)
== END 2023-12-17 12:16 | disposition home or self-care (01) | DRG 149 ==
LOC: M ED 12:45 → M ED INP 18:38 → M MSPAV 23:35
PROVIDERS: ADMIT Internal Medicine Nephrology; ATTEND Internal Medicine Nephrology
DX: R42 Dizziness and giddiness (principal); R26.89 Other abnormalities of gait and mobility; I10 Essential (primary) hypertension; E11.9 Type 2 diabetes mellitus without complications; E78.5 Hyperlipidemia, unspecified; I25.118 Atherosclerotic heart disease of native coronary artery with other forms of angina pectoris; I48.91 Unspecified atrial fibrillation; K21.9 Gastro-esophageal reflux disease without esophagitis; I65.23 Occlusion and stenosis of bilateral carotid arteries; I44.0 Atrioventricular block, first degree; E66.9 Obesity, unspecified; I45.10 Unspecified right bundle-branch block; M79.7 Fibromyalgia; G47.30 Sleep apnea, unspecified; G89.29 Other chronic pain; M54.9 Dorsalgia, unspecified; J67.0 Farmer's lung; Z95.3 Presence of xenogenic heart valve; Z95.1 Presence of aortocoronary bypass graft; N40.0 Benign prostatic hyperplasia without lower urinary tract symptoms; Z79.01 Long term (current) use of anticoagulants; Z79.84 Long term (current) use of oral hypoglycemic drugs; Z79.899 Other long term (current) drug therapy; Z86.73 Personal history of transient ischemic attack (TIA), and cerebral infarction without residual deficits; Z68.36 Body mass index [BMI] 36.0-36.9, adult

== ENCOUNTER → 2024-01-09 | Outpatient (CLI) | payer OTHER, MEDICARE ==
[~2024-01-09] MED LIST changes: +MECL-136 PO; +VENTAER INH
[2024-01-09 10:27] LABS: BLOOD UREA NITROGEN 20 MG/DL (9-23); CARBON DIOXIDE LEVEL 32 MMOL/L (20-31); CHLORIDE LEVEL 104 MMOL/L (98-107); CREATININE FOR GFR 1.04 MG/DL (0.70-1.30); GLOMERULAR FILTRATION RATE > 60.0 (>42); GLUCOSE, FASTING 198 MG/DL (74-106); POTASSIUM SERUM 4.2 MMOL/L (3.5-5.1); SODIUM LEVEL 140 MMOL/L (136-145)
[2024-01-09 10:46] LABS: HEMOGLOBIN 14.9 g/dl (13.5-17.5); MEAN CORPUSCULAR HEMOGLOBIN 31.8 pg (27.0-33.0); MEAN CORPUSCULAR HGB CONC 33.9 g/dl (32.0-36.5); PLATELET COUNT, AUTOMATED 160 10^3/uL (150-450); RED BLOOD COUNT 4.68 10^6/uL (4.30-6.10); WHITE BLOOD COUNT 8.1 10^3/uL (4.0-10.0)
== END ==
LOC: M LAB 08:54
PROVIDERS: ATTEND Physician Assistant
DX: I25.10 Atherosclerotic heart disease of native coronary artery without angina pectoris (principal); Z95.5 Presence of coronary angioplasty implant and graft; I50.32 Chronic diastolic (congestive) heart failure

== ENCOUNTER → 2024-03-04 | Outpatient (CLI) | payer OTHER ==
[2024-03-04 10:30] LABS: ALBUMIN 3.5 G/DL (3.2-5.2); BILIRUBIN,DIRECT 0.2 MG/DL (<0.4); BILIRUBIN,TOTAL 0.5 MG/DL (0.3-1.2); CHOLESTEROL RISK RATIO 1.78 (<5); HDL CHOLESTEROL 39.3 MG/DL (>40); LDL CHOLESTEROL 18.1 MG/DL (<100); NON-HDL-C 30.7 MG/DL; TOTAL PROTEIN 6.5 G/DL (5.7-8.2)
== END ==
LOC: M LAB 09:34
PROVIDERS: ATTEND Physician Assistant
DX: E78.00 Pure hypercholesterolemia, unspecified (principal)

== ENCOUNTER → 2025-01-08 | Outpatient (CLI) | payer OTHER, MEDICARE ==
[~2025-01-08] MED LIST changes: -AMIO200T49 PO; +AMIO200T54 PO; -EQL50TAB2 PO; -EZET10TA21 PO; +EZET10TA57 PO; -FLOM0.4C39 PO; -OMEP20TA3 PO; +PRED-1142 PO; -PRED1TABL PO; +TAMS-18 PO; +VITA1TAB82 PO; +[UNRECOGNIZED DRUG - CODE] PO
== END ==
LOC: M PLAIMG 14:25
PROVIDERS: ATTEND Physician Assistant
DX: I35.2 Nonrheumatic aortic (valve) stenosis with insufficiency (principal); Z95.3 Presence of xenogenic heart valve; I08.9 Rheumatic multiple valve disease, unspecified